=== PATIENT | female | born 1955 | race Caucasian/White ===

== ENCOUNTER → 2021-02-21 15:52 | Outpatient (CLI) | payer OTHER, SELFPAY ==
--- NOTE | ~2021-02-21 | MM_ITS ---
EXAMINATION: MM screening mateo BI w bethany HISTORY: Screening TECHNIQUE: Craniocaudal and mediolateral oblique 3-D tomosynthesis images were obtained and synthetic 2-D images were generated. CAD analysis was submitted and interpreted. COMPARISON: Comparison to multiple prior studies sequentially, with oldest reviewed study dated 06/05. BREAST PARENCHYMAL COMPOSITION: The breasts are almost entirely fatty. FINDINGS: There is no evidence of suspicious mass, calcification, or architectural distortion to sugg est malignancy in either breast. There has been no suspicious interval change. IMPRESSION: 1. No mammographic evidence of malignancy. 2. Recommend routine screening mammography in one year. BI-RADS Category 1: Negative Reviewed, dictated and finalized at location A.
== END ==
PROVIDERS: PCP Family Medicine; Visit Provider Nurse Practitioner Family
DX: Z12.31 Encounter for screening mammogram for malignant neoplasm of breast (principal)
CPT/HCPCS: 77063; 77067

== ENCOUNTER → 2022-04-16 15:36 | Outpatient (CLI) | payer MEDICARE, SELFPAY ==
--- NOTE | ~2022-04-16 | MM_ITS ---
EXAMINATION: MM screening mateo BI w bethany HISTORY: Screening mammogram TECHNIQUE: Craniocaudal and mediolateral oblique 3-D tomosynthesis images were obtained and synthetic 2-D images were generated. CAD analysis was submitted and interpreted. COMPARISON: 02/21/2021 bilateral screening mammogram 08/14/2018 bilateral diagnostic mammogram and limited left breast ultrasound examination BREAST PARENCHYMAL COMPOSITION: The breasts are almost entirely fatty. FINDINGS: There is no evidence of suspicious mass, calcification, or architectural distortion to sugg est malignancy in either breast. There has been no suspicious interval change. IMPRESSION: 1. No mammographic evidence of malignancy. 2. Recommend routine screening mammography in one year. BI-RADS Category 1: Negative Reviewed, dictated and finalized at location A.
--- NOTE | ~2022-04-16 | DEXA_ITS ---
Bone Density Report Name: JUSTUS MIRANDA Age: 66 Sex: Female Ethnicity: White Date of : 1955 Indication: postmenopausal; screening for osteoporosis; height loss; Referring Provider: Ivet Cuellar Study: Bone densitometry was performed. Exam Date: April 16, 2022 Accession number: [id number] Bone Density: Region BMD T-score Z-score Classification AP Spine (L1-L4) 1.306 2.4 4.2 Normal Femoral Neck (Left) 0.831 -0.2 1.4 Normal Total Hip (Left) 1.060 1.0 2.2 Normal Femoral Neck (Right) 0.818 -0.3 1.3 Normal Total Hip (Right) 1.020 0.6 1.9 Normal Total Hip Mean 1.040 0.8 2.1 Normal World Health Organization criteria for BMD impression classify patients as: Normal (T-score at or above -1.0), Osteopenia (T-score between -1.0 and -2.5), or Osteoporosis (T-score at or below -2.5). 10-year Fracture Risk: FRAX not reported because: All T-scores for Spine Total, Hip Total, Femoral Neck at or above -1.0 Clinical Information Provided by Patient: Has used the following medications: Vitamin D, MTV Patient maximum height was 62.0 Menopause Age: 56 Drinks caffeinated beverages Onset of menses at age 14 Number of children 3 Impression: The patient has normal bone mass. Discussion: BONE DENSITY IS ABOVE THE MINIMUM DESIRABLE LEVEL AT ALL SKELETAL SITES TESTED. This patient?s bone mineral density is above the minimum desirable level (T-score -1.0 or better) at all sites measured. The patient should follow a healthful lifestyle (good nutrition with adequate calcium and vitamin D, and appropriate weight-bearing exercise). Follow-Up: Consider repeating this study in 5 years or sooner if there is some new clinical indication. Reported by: WILLIE on 04/16/2022 4:25:00 PM. Reviewed, dictated and finalized at location AYehuda GARDNER
== END ==
PROVIDERS: PCP Family Medicine; Visit Provider Student in an Organized Health Care Education/Training Program
DX: Z12.31 Encounter for screening mammogram for malignant neoplasm of breast (principal); Z78.0 Asymptomatic menopausal state
CPT/HCPCS: 77063; 77067; 77080

== ENCOUNTER 2022-08-21 10:45 | Outpatient (CLI) | payer MEDICARE, SELFPAY ==
--- NOTE | 2022-08-21 11:00 | ECG_ITS ---
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
== END 2022-08-21 10:46 | disposition home or self-care (01) ==
LOC: ANHIMG 10:49
PROVIDERS: PCP Family Medicine; Visit Provider Nurse Practitioner Family
DX: I10 Essential (primary) hypertension (principal)
CPT/HCPCS: 93005

== ENCOUNTER 2022-08-29 09:18 | Outpatient (CLI) | payer MEDICARE, SELFPAY ==
--- NOTE | 2022-08-29 09:36 | ECHO_ITS ---
Patient Info Name: Delmi Briseno Age: 66 years : 1955 Gender: Female Ht: 61 in Wt: 330 lbs BSA: 2.65 m2 HR: 64 bpm BP: 139 / 73 mmHg Technical Quality: Good Exam Date: 08/29/2022 9:39 AM Exam Location: [facility] Patient Status: Outpatient Admit Date: 08/29/2022 Staff Ordering Physician: Katalina Griffiths NP Brick Paver: Alida King RDCS Attending Provider: Katalina Griffiths NP Exam Type: CA echo doppler color flow Study Info Indications I10 - Essential (primary) hypertension Complete two-dimensional, color flow and Doppler transthoracic echocardiogram is performed. Summary 1. Complete two-dimensional, color flow and Doppler transthoracic echocardiogram is performed. 2. Left ventricular chamber dimension is normal. 3. Left ventricular systolic function is normal, estimated at 60-65%. 4. There is mildly increased left ventricular wall thickness. 5. The left ventricular diastolic function is grade I diastolic dysfunction. 6. E/e' 10 is mildly elevated. 7. Global longitudinal strain is normal at -19.4%. 8. Left atrial chamber dimension is mildly enlarged. 9. Right atrial chamber dimension is mildly enlarged. 10. There is trace mitral valve regurgitation. 11. There is trace tricuspid valve regurgitation. 12. No pulmonary hypertension, estimated pulmonary arterial systolic pressure is 34 mmHg. 13. Dilated inferior vena cava with >50% collapse upon inspiration consistent with normal right atrial pressure, 10 mmHg. Left Ventricle Global longitudinal strain is normal at -19.4%. E/e' 10 is mildly elevated. Left ventricular chamber dimension is normal. Left ventricular systolic function is normal, estimated at 60-65%. There is mildly increased left ventricular wall thickness. The left ventricular diastolic function is grade I diastolic dysfunction. Right Ventricle Right ventricular systolic function is normal and with normal TAPSE 3.0 cm. Right ventricular chamber dimension is normal. Left Atria Left atrial chamber dimension is mildly enlarged. Right Atria Right atrial chamber dimension is mildly enlarged. Aortic Valve The aortic valve is trileaflet. There is no aortic valve stenosis. There is no aortic valve regurgitation. Pulmonic Valve There is no pulmonic regurgitation. Mitral Valve There is no mitral valve stenosis. There is trace mitral valve regurgitation. Tricuspid Valve There is trace tricuspid valve regurgitation. No pulmonary hypertension, estimated pulmonary arterial systolic pressure is 34 mmHg. Pericardium/Pleural There is no pericardial effusion. Inferior Vena Cava Dilated inferior vena cava with >50% collapse upon inspiration consistent with normal right atrial pressure, 10 mmHg. Aorta The aortic root size at the sinus of Valsalva is normal. Left Ventricular Outflow Tract Name Value Normal LVOT 2D LVOT Diameter 1.9 cm LVOT Doppler LVOT Peak Gradient 6 mmHg LVOT Mean Gradient 3 mmHg LVOT VTI 29 cm LVOT VTI/AV VTI Ratio 0.8
--- NOTE | 2022-08-30 15:18 | WPDHOLTEREM ---
Holter/Event Monitor Holter/Event Monitor Date of procedure: 08/29/22 Holter/Event Procedure: 24 Hr Holter Monitor Indications: Hypertension Conclusion: 1. 24 hour holter monitor on 08/29/22. 2. Underlying rhythm is sinus rhythm. HR range 43-96 bpm; average HR 60 bpm. 3. There are 4 premature supraventricular complexes and 2 supraventricular couplets. No supraventricular tachycardia. 4. No premature ventricular complexes. No ventricular tachycardia. 5. No sinoatrial or atrioventricular blocks. No significant pauses greater than 2 seconds. 6. No symptoms available for correlation.
== END 2022-08-29 09:19 | disposition home or self-care (01) ==
LOC: ANHCARD 09:19
PROVIDERS: PCP Family Medicine; Visit Provider Nurse Practitioner Family
DX: R01.1 Cardiac murmur, unspecified (principal); I10 Essential (primary) hypertension; I51.7 Cardiomegaly
CPT/HCPCS: 93225; 93226; 93306

== ENCOUNTER → 2023-04-03 10:41 | Outpatient (CLI) | payer MEDICARE, SELFPAY ==
--- NOTE | ~2023-04-03 | US_ITS ---
EXAMINATION: US thyroid DATE: 04/03/2023 11:05 INDICATION: Nontoxic goiter, unspecified. Thyroid nodule. TECHNIQUE: Multiple ultrasound images of the thyroid were obtained. COMPARISON: None. FINDINGS: The right thyroid lobe measures 5.2 x 3.0 x 2.2 cm. The left thyroid lobe measures 5.1 x 1.8 x 2.2 c m. There are multiple nodules in the thyroid. In the right thyroid lobe, there is a 1.8 cm solid, is oechoic, taller than wide nodule with ill-defined margin without echogenic foci (TI-RADS TR4). In the right thyroid lobe, there is a 1.7 cm predominantly solid, hypoechoic, wider than tall nodule with s mooth margin and punctate echogenic foci (TR5). In the left thyroid lobe, there is a 1.4 cm solid, hy poechoic wider than tall nodule with lobulated margin without echogenic foci (TR4). In the left thyro id lobe, there is a 1.2 cm solid, hypoechoic, wider than tall nodule with lobulated margin without ec hogenic foci (TR4). IMPRESSION: 1. Multinodular goiter. Ultrasound-guided fine-needle aspiration of the 1.8 cm and 1.7 cm nodules is recommended. Reviewed, dictated and finalized at location E.
== END ==
PROVIDERS: PCP Family Medicine; Visit Provider Registered Nurse
DX: E04.2 Nontoxic multinodular goiter (principal)
CPT/HCPCS: 76536

== ENCOUNTER → 2023-07-02 13:40 | Outpatient (CLI) | payer MEDICARE, SELFPAY ==
--- NOTE | ~2023-07-02 | MM_ITS ---
EXAMINATION: MM screening mateo BI w bethany HISTORY: Screening mammogram TECHNIQUE: Craniocaudal and mediolateral oblique 3-D tomosynthesis images were obtained and synthetic 2-D images were generated. CAD analysis was submitted and interpreted. COMPARISON: 04/16/2022, 02/21/2021 bilateral screening mammogram examinations BREAST PARENCHYMAL COMPOSITION: The breasts are almost entirely fatty. FINDINGS: There is no evidence of suspicious mass, calcification, or architectural distortion to sugg est malignancy in either breast. There has been no suspicious interval change. IMPRESSION: 1. No mammographic evidence of malignancy. 2. Recommend routine screening mammography in one year. BI-RADS Category 1: Negative Reviewed, dictated and finalized at location A. 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
== END ==
PROVIDERS: PCP Registered Nurse; Visit Provider Registered Nurse
DX: Z12.31 Encounter for screening mammogram for malignant neoplasm of breast (principal)
CPT/HCPCS: 77063; 77067

== ENCOUNTER 2023-12-03 11:24 | Outpatient (CLI) | payer MEDICARE, SELFPAY ==
--- NOTE | ~2023-12-03 | XR_ITS ---
2 views of the right clavicle CLINICAL HISTORY: Pain FINDINGS: No fracture or dislocation seen. There is mild AC joint degenerative change. Glenohumeral j oint intact. Soft tissues are unremarkable. IMPRESSION: Mild AC joint degenerative change. Reviewed, dictated and finalized at location M.
--- NOTE | ~2023-12-03 | XR_ITS ---
Right Shoulder Technique: AP and scapular Y views were obtained. Clinical History: Pain Findings: No fracture or dislocation is seen. Osseous alignment is anatomic. There is mild AC degener ative change. Glenohumeral joint intact. Soft tissues are unremarkable. Impression: Mild AC joint degenerative change. Reviewed, dictated and finalized at [facility]. Impression: Mild AC joint degenerative change.
== END 2023-12-03 11:25 ==
LOC: MICIMG 11:26
PROVIDERS: PCP Physician Assistant Medical; Visit Provider Physician Assistant Medical
DX: M89.8X1 Other specified disorders of bone, shoulder (principal); M19.011 Primary osteoarthritis, right shoulder
CPT/HCPCS: 73000; 73030

== ENCOUNTER 2024-06-24 09:26 | Outpatient (CLI) | payer MEDICARE, SELFPAY ==
--- NOTE | ~2024-06-24 | XR_ITS ---
2 views of the right clavicle CLINICAL HISTORY: Other specified disorder of bone COMPARISON: 12/03/2023 FINDINGS: No acute fracture or dislocation seen. Mild AC joint degenerative change present. Soft tiss ues are unremarkable. IMPRESSION: No acute abnormality. Mild AC joint degenerative change. Reviewed, dictated and finalized at [facility]. GER ENGLISH
== END 2024-06-24 09:27 | disposition home or self-care (01) ==
PROVIDERS: PCP Physician Assistant Medical; Visit Provider Physician Assistant Medical
DX: M89.8X1 Other specified disorders of bone, shoulder (principal)
CPT/HCPCS: 73000

== ENCOUNTER 2024-07-27 10:11 | Outpatient (CLI) | payer MEDICARE, SELFPAY ==
--- OUTSIDE RECORDS SUMMARY | 2024-08-03 20:29 | XMS_ITS | Referral Summary ---
Author Organization [facility] [employer] Address [address] [place] [address] Care Team Providers Care Cytogeneticist Name Role Phone Montana Lion MD Primary Care Provider [phone] Source Comments [facility],non-owned Affiliates and Associated Physician Practices is amultiple site organization consisting of ambulatory clinics and hospital sitesin [place], [place], [place] and [place]. This disclosure is being madepursuant to the Care Everywhere program and may not contain all information available regarding this patient. Last updated 18.[facility] [employer] Encounters Date Type Department Care Team Description 05/12/2024 Travel from Last 3 Months Allergies Active Allergy Reactions Criticality Noted Date Comments Adhesive Sensitivity Skin Reactions Low 08/22/2014 Paper Tape is OK Sulfa Drugs Skin Reactions,Itching Medium 08/22/2014 Medications * Be aware that medications may not be up to date on this document. Alwaysverify current medications with the patient. Medication Sig Dispensed Refills Start Date End Date Status Coenzyme Q10 (COQ10) 100 MG Take by mouth once daily Active cyanocobalamin (VITAMIN B-12) 500 MCG tablet Take 1 (one) tablet by mouth once daily Active IRON PO Take 1 tablet by mouth once daily Active multivitamins (ONE A DAY) capsule Take 1 (one) capsule by mouth Active omeprazole (PRILOSEC) 20 MG capsule Take 1 (one) capsule by mouth daily before breakfast 11/09/2017 Active vitamin D3 (CHOLECACIFEROL) 5000 UNITS Take by mouth once daily Active aspirin EC (ECOTRIN) 81 MG tablet Take 1 (one) tablet by mouth once daily Active Magnesium 400 MG Take by mouth at bedtime Active atorvastatin (Lipitor) 80 MG tablet Take 1 (one) tablet by mouth once daily 04/17/2022 Active Januvia 25 MG tablet Take 1 (one) tablet by mouth once daily 04/01/2022 Active metFORMIN (Glucophage) 1000 MG tablet 2 times daily with morning and evening meal 05/02/2022 Active ibuprofen (Motrin) 200 MG tablet Take by mouth every 6 hours as needed Active losartan (Cozaar) 100 MG tablet 03/13/2023 Active nebivolol (Bystolic) 5 MG tablet Take 1 (one) tablet by mouth once daily 05/12/2023 Active fluticasone propionate (Flonase) 50 MCG/ACT nasal spray INSTILL 1-2 SPRAYS INTO EACH NOSTRIL TWICE DAILY. AIM BACK, UP AND OUT 05/14/2023 Active Cetirizine HCl (ZYRTEC ALLERGY PO) Take by mouth once daily Active calcium 500 mg tablet Take 1 (one) tablet by mouth once daily Active nystatin (Mycostatin) 644050 UNIT/ML suspension SWISH AND HOLD 5ML BY MOUTH TWICE DAILY THEN SPIT 04/13/2024 Active Active Problems Problem Noted Date Diagnosed Date Iron deficiency 12/31/2015 Overview (06/20/2022): 09/12/14 trf sat 8%, Hgb 11.6, MCV 84. 09/27/14 EGD: normal appearing duodenum, biopsy normal 11/20/15 trf sat 12% 12/02/17 trfs sat 12% 07/03/21 colonoscopy negative Metabolic dysfunction-associated steatohepatitis (MASH) 11/21/2014 Overview (04/29/2024): 01/04/14 US (Ghulam): diffuse steatosis with focal sparing in the left lobe. 09/27/14 liver biopsy: VITALE, stage 2 11/16/18 Fibroscan CAP 383, LSM 9.0 kPa dwp 05/01/20 Fibroscan CAP 325, LSM 10.9 kPa dwp 05/07/21 Fibroscan CAP 381, LSM 10.3 kPa dwp 06/20/21 Fibroscan CAP 377, LSM 14.2 kPa 07/03/21 liver biopsy: VITALE, stage 2 06/20/22 Fibroscan CAP 333, LSM 12.4 kPa 05/22/23 Fibroscan CAP 268, LSM 8.1 kPa 04/29/24 Fibroscan CAP 344, LSM 9.7 kPa Ypnwr-1-lvmzdsnpfhg deficiency 10/13/2014 Overview (11/03/2017): MZ, level 104 No PASD globules on 09/27/14 liver biopsy Obesity 08/22/2014 Type 2 diabetes mellitus 08/22/2014 Hypertension 08/22/2014 Osteoarthritis 08/22/2014 Family history of colon cancer 08/22/2014 Overview (06/20/2022): Right hemicolectomy in 2007. Negative colonoscopy 2013. 07/03/21 colonoscopy: right hemicolectomy, tattooed area in sigmoid colon, no adenomas, repeat in 5 years. Heartburn 08/22/2014 Hypercholesterolemia 08/22/2014 Immunizations Name Administration Dates Next Due Covid Moderna primary monova lent 12+ yr 0.5mL 04/04/2022,10/04/2020,09/07/2020 INFLUENZA 05/07/2021 MODERNA SARS-COV-2 COVID-19 VACCINE 0.25ML 03/13 Social History Tobacco Use Types Packs/Day Years Used Date Smoking Tobacco: Never Smokeless Tobacco: Never Tobacco Cessation:Counseling Given: Not Answered Alcohol Use Standard Drinks/Week Comments No 0 (1 standard drink = 0.6 oz pur e alcohol) Sex and Gender Information Value Date Recorded Sex Assigned at Female 05/15/2021 10:17 AM CDT Gender Identity Female 05/15/2021 10:17 AM CDT Sexual Orientation Straight 05/15/2021 10 :17 AM CDT Last Filed Vital Signs Vital Sign Reading Time Taken Comments Blood Pressure 169/74 04/29/2024 8:55 AM CDT Pulse 51 04/29/2024 8:55 AM CDT Temperature 36.6 ??C (97.9 ??F) 04/29/2024 8:55 AM CD T Respiratory Rate 17 04/29/2024 8:55 AM CDT Oxygen Saturation 97% 06/20/2022 8:12 AM MACHINE REPAIR PERSON Inhaled Oxygen Concentration - - Weight 102.2 kg (225 lb 3.2 oz) 04/29/2024 8:55 AM CDT Height 157.5 cm (5' 2 ) 04/29/2024 8:55 AM CDT Body Mass Index 41.19 04/29/2024 8:55 AM CDT Plan of Treatment Upcoming Encounters Date Type Department Care Team (Late st Contact Info) Description 05/02/2025 11:30 AM CDT Procedure visit [facility] - [place] [address] [place] [phone] 05/02/2025 12:30 PM CDT Office Visit [facility] - [facility] [address] [place] [phone] Moris Leon MD [address] [place] [address] [place] [address] Goals Goal Patient Goal Type Associated Problems Recent Progress Patient-Stated? Author Medication Management General On track( 021 11:08 AM CDT) Alexx Castillo, RN Note: Expected end date: Interventions: Take all medications as prescribed Let your doctor know right away about any changes in your medications Make sure to request a refill of your medication at least one week prior to your last dose Procedures Procedure Name Priority Date/Time Associated Diagnosis Comments ENDOSCOPY, COLON, SCREENING Routine 07/03/2021 7:24 AM MACHINE REPAIR PERSON Family history of colon cancer COMPREHENSIVE METABOLIC PANEL Routine 04/20/2020 10:22 AM CDT Nonalcoholic steatohepatitis (VITALE) HEPATITIS C ANTIBODY Routine 09/12/2014 9:00 AM MACHINE REPAIR PERSON from Last 3 Months or Most Recently Relevant to Health Maintenance Results * ENDOSCOPY, COLON, SCREENING (07/03/2021 7:24 AM MACHINE REPAIR PERSON) Report Endoscopy POC Endoscopy Department Report _ Patient Name: Delmi Briseno ?Procedure Date: 07/03/2021 7:24 AM ? Date of : 1955 Classification: Outpatient ?Gender: Female Ethnicity: Not or ? Race: White _ Providers: ?Moris Hawk MD, Sourav Madrid (Fellow) Referring MD: ? Montana Lion (Referring MD) Procedure: ?Colonoscopy Indications: ?High risk colon cancer surveillance: Personal ?history of colonic polyps, prior right hemicolectomy Medications: ?Monitored Anesthesia Care Patient Profile: ?65 year old female with family history of colon ?cancer (father in 70's), personal history of colon ?polyps, and hemicolectomy for benign colonic tumor. Description of Procedure: Pre-Anesthesia Assessment: ?- Prior to the procedure, a History and Physical ?was performed, and patient medications and ?allergies were reviewed. The patient's tolerance of ?previous anesthesia was also reviewed. The risks ?and benefits of the procedure and the sedation ?options and risks were discussed with the patient. ?All questions were answered, and informed consent ?was obtained. Prior Anticoagulants: The patient has ?taken no previous anticoagulant or antiplatelet ?agents. ASA Grade Assessment: III - A patient with ?severe systemic disease. After reviewing the risks ?and benefits, the patient was deemed in ?satisfactory condition to undergo the procedure. ?After I obtained informed consent, the scope was ?passed under direct vision. Throughout the ?procedure, the patient's blood pressure, pulse, and ?oxygen saturations were monitored continuously. The ?CF-[id number] was introduced through the anus and ?advanced to the cecum, identified by appendiceal ?orifice and ileocecal valve. The colonoscopy was ?performed without difficulty. The patient tolerated ?the procedure well. The quality of the bowel ?preparation was evaluated using the BBPS ([place]s ?Bowel Preparation Scale) with scores of: Right ?Colon = 3, Transverse Colon = 3 and Left Colon = 3 ?(entire mucosa seen well with no residual staining, ?small fragments of stool or opaque liquid). The ?total BBPS score equals 9. The terminal ileum and ?the rectum were photographed. Appendicial orifice ?and IC valve both surgically removed ? Findings: ? The perianal and digital rectal examinations were normal. ? There was evidence of a prior end-to-side ileo-colonic anastomosis in ? the ascending colon. This was patent and was characterized by healthy ? appearing mucosa. ? A tattoo was seen in the distal transverse colon. The tattoo site ? appeared normal. ? A 2 mm polyp was found in the sigmoid colon. The polyp was sessile. The ? polyp was removed with a [employer] cold forceps. Resection and retrieval ? were complete. ? Multiple small and large-mouthed diverticula were found from descending ? colon to rectum. ? Internal hemorrhoids were found during retroflexion. The hemorrhoids ? were Grade I (internal hemorrhoids that do not prolapse). ? Estimated Blood Loss: ? Estimated blood loss: minimal. Complications: ?No immediate complications. Impression: ? 1) Patent end-to-side ileo-colonic anastomosis, ?characterized by healthy appearing mucosa. ?2) A tattoo was seen in the distal transverse ?colon. The tattoo site appeared normal no signs of ?any polyp near that site. ?3) One 2 mm polyp in the sigmoid colon, removed ?with a [employer] cold forceps. Resected and retrieved. ?4) Diverticulosis in the recto-sigmoid colon. ?5) Internal hemorrhoids. Recommendation: ? - Patient has a contact number available for ?emergencies. The signs and symptoms of potential ?delayed complications were discussed with the ?patient. Return to normal activities tomorrow. ?Written discharge instructions were provided to the ?patient. ?- Resume previous diet. ?- Continue present medications. ?- Await pathology results. ?- Repeat colonoscopy in 5 years for surveillance ?based on pathology results, FH and prior history. ? Procedure Code(s): ? --- Professional --- ? 86866, Colonoscopy, flexible; with biopsy, single or multiple Diagnosis Code(s): ?--- Professional --- ?Z86.010, Personal history of colonic polyps ?Z98.0, Intestinal bypass and anastomosis status ?K64.0, First degree hemorrhoids ?K63.5, Polyp of colon ?K57.30, Diverticulosis of large intestine without ?perforation or abscess without bleeding CPT copyright 2019 [employer]. All rights reserved. The codes documented in this report are preliminary and upon transit coach operator review may be revised to meet current compliance requirements. Moris Hawk MD 07/03/2021 9:08:27 AM This report has been signed electronically. Note Initiated On: 07/03/2021 7:24 AM Number of Addenda: 0 ? [facility] ? [address] [place] [address] [facility] 07/03/2021 7:24 AM MACHINE REPAIR PERSON Moris Leon MD GI PROCEDU RE ORDERABLES [facility] * (ABNORMAL) COMPREHENSIVE METABOLIC PANEL (04/20/2020 10:22 AM CDT) Glucose 195(H) 65 - 99 mg/dL [facility] INSURANCE BILL BUN 15 8 - 27 mg/dL [facility] INSURANCE BILL Creatinine 0.76 0.57 - 1.00 mg/dL [facility] INSURANCE BILL eGFR by MDRD 84 >59 mL/min/1.7 3 [facility] INSURANCE BILL eGFR by MDRD 97 >59 mL/min/1.7 3 [facility] INSURANCE BILL BUN/Creatinine Ratio 20 12 - 28 [facility] INSURANCE BILL Sodium 140 134 - 144 mmol/L [facility] INSURANCE BILL Potassium 4.9 3.5 - 5.2 mmol/L [facility] INSURANCE BILL Chloride 100 96 - 106 mmol/L [facility] INSURANCE BILL CO2 25 20 - 29 mmol/L [facility] INSURANCE BILL Calcium 9.8 8.7 - 10.3 mg/dL [facility] INSURANCE BILL Protein Total 6.3 6.0 - 8.5 g/dL [facility] INSURANCE BILL Albumin 4.1 3.8 - 4.8 g/dL [facility] INSURANCE BILL Globulin Total 2.2 1.5 - 4.5 g/dL [facility] INSURANCE BILL Albumin/Globulin Ratio 1.9 1.2 - 2.2 [facility] INSURANCE BILL Bilirubin Total 0.7 0.0 - 1.2 mg/dL [facility] INSURANCE BILL Alkaline Phosphatase 94 39 - 117 IU/L [facility] INSURANCE BILL AST 41(H) 0 - 40 IU/L [facility] INSURANCE BILL ALT 50(H) 0 - 32 IU/L [facility] INSURANCE BILL Blood BLOOD SPECIMEN / Unknown 04/20/2020 10:22 AM CDT 04/20/2020 Narrative Resulting Agency Comment Lab Testing performed at: [address] ??Count includes the [facility] [id number] Moris Leon MD LAB - CHEM ISTRY ORDERABLES [facility] INSURANCE BILL [address] [place] [address] * HEPATITIS C ANTIBODY (09/12/2014 9:00 AM MACHINE REPAIR PERSON) Hepatitis C Virus Antibody 0.1 0.0 - 0.9 s/co ratio [facility] Comment: ?Negative: ? < 0.8 ? Indeterminate: 0.8 - 0.9 ?Positive: ? > 0.9 ??In order to reduce the incidence of a false positive ??result, the CDC recommends that all s/co ratios ??between 1.0 and 10.9 be confirmed by a more specific ??supplemental or PCR testing. [facility] offers HCV Ab ??w/Reflex to Verification test #[id number]. Blood specimen (specimen) BLOOD SPECIMEN / Unknown 09/12/2014 9:00 AM MACHINE REPAIR PERSON 09/12/2014 11:43 PM MACHINE REPAIR PERSON Narrative [facility] - 09/14/2014 11:26 AM MACHINE REPAIR PERSON Performed at: ??[address], [place], [place] ??[id number] Supervisor Commissary Production: Ion Leon PhD, Phone: ??[phone] Moris Leon MD LAB - CHEM ISTRY ORDERABLES [facility] [facility] from Last 3 Months or Most Recently Relevant to Health Maintenance Care Teams Cytogeneticist Relationship Specialty Start Date End Date Montana Lion MD [address] [place] [address] PCP - General 11/20/15
--- OUTSIDE RECORDS SUMMARY | 2024-08-03 20:29 | XMS_ITS | CONTINUITY OF CARE DOCUMENT ---
Author Name ramon navarro Address Unknown Organization [facility] Address [address] [place] [address] Phone [phone] Care Team Providers Care Special Agent Name Role Phone Deshawn Mike MD Unavailable [phone] DONA GLEASON MD Unavailable [phone] DONA GLEASON MD Unavailable INSURANCE PROVIDERS Payer name Policy type / Coverage type Clare red republican ID [employer] company [id number]
--- OUTSIDE RECORDS SUMMARY | 2024-08-03 20:29 | XMS_ITS | Clinical Summary ---
Author Organization [facility] [employer] Address [address] [place] [address] Care Team Providers Care Leadlighter Name Role Phone Montana Lion MD Primary Care Provider [phone] Source Comments [facility] [employer],non-owned Affiliates and Associated Physician Practices is amultiple site organization consisting of ambulatory clinics and hospital sitesin [place], [place], [place] and [place]. This disclosure is being madepursuant to the Care Everywhere program and may not contain all information available regarding this patient. Last updated 18.[facility] [employer] Allergies Active Allergy Reactions Criticality Noted Date [...] by mouth once daily Active nystatin (Mycostatin) 934218 UNIT/ML suspension SWISH AND HOLD 5ML BY [...] 04/29/24 Fibroscan CAP 344, LSM 9.7 kPa Itijl-4-xzsqefhyotq deficiency 10/13/2014 Overview (11/03/2017): MZ, level 104 No PASD globules on 09/27/14 liver biopsy Obesity 08/22/2014 Type 2 diabetes mellitus 08/22/2014 Hypertension 08/22/2014 Osteoarthritis 08/22/2014 Family history of colon cancer 08/22/2014 Overview (06/20/2022): Right hemicolectomy in 2007. Negative colonoscopy 2013. 07/03/21 colonoscopy: right hemicolectomy, tattooed area in sigmoid colon, no adenomas, repeat in 5 years. Heartburn 08/22/2014 Hypercholesterolemia 08/22/2014 Encounters Date Type Department Care Team Description 05/12/2024 Travel from Last 3 Months Immunizations Name Administration Dates Next Due Covid [...] CDT Oxygen Saturation 97% 06/20/2022 8:12 AM LEATHER SPLITTER Inhaled Oxygen Concentration - - Weight 102.2 kg (225 lb 3.2 oz) 04/29/2024 8:55 AM CDT Height 157.5 cm (5' 2 ) 04/29/2024 8:55 AM CDT Body Mass Index 41.19 04/29/2024 8:55 AM CDT Plan of Treatment Upcoming Encounters Date Type Department Care Team (Late st Contact Info) Description 05/02/2025 11:30 AM CDT Procedure visit [facility] - [facility] [address] [place] [phone] 05/02/2025 12:30 PM CDT Office Visit [facility] - [facility] [address] [place] [phone] Moris Leon MD [address] [place] [address] [place] [address] Health Maintenance Due Date Last Done Comments BONE DENSITY TESTING 1955 COLOGUARD (AGES 45-75) - COLON CA SCREENING 1955 CT COLONOGRAPHY - COLON CA SCREENING 1955 FIT - COLON CA SCREENING 1955 FLEX SIG - COLON CA SCREENING 1955 PNEUMOCOCCAL VACCINE 65+ (1 of 2 - PCV) 1962 DTAP/TDAP/TD VACCINES (1 - Tdap) 1975 ZOSTER VACCINE (1 of 2) 2006 Respiratory Syncytial Virus (RSV) Vaccine Pt: or over 60 yrs (1 - Risk 60-74 years 1-dose series) 2016 MAMMOGRAM 10/14/2018 10/14/2016, 03/0 02/2016, 09/26/2014, Additional history exists DIABETES RETINOPATHY SCREENING 11/02/2018 DIABETES-FOOT EXAM WITH MONOFILAMENT 11/02/2018 DIABETES-HGB A1C 11/02/2018 DIABETES-SERUM CREATININE 04/20/20212019, 11/04/2018, 11/06/2017, Additional history exists DEPRESSION SCREENING 08/04/2023 DIABETES - URINE PROTEIN SCREENING 08/04/2023 MEDICARE AWV ? CALENDAR YEAR 2023 COVID-19 VACCINE ( season) 2024 03/13/2023, 04/04/2022, 10/04/2020, Additional history exists INFLUENZA VACCINE (#1) 2024 05/07/2021 COLON MONITORING 07/03/2031 07/03/2021, 07/03/2021 COLONOSCOPY - COLON CA SCREENING 07/03/2031 07/03/2021, 07/03/2021 Colorectal Cancer Screening 07/03/2031 HEPATITIS C SCREENING Completed 09/12/2014 HEPATITIS B VACCINE Aged Out No longe r eligible based on patient's age to complete this topic HIB VACCINE Aged Out No longer eligi ble based on patient's age to complete this topic HPV VACCINE Aged Out No longer eligi ble based on patient's age to complete this topic MENINGOCOCCAL VACCINE Aged Out No lois tanya eligible based on patient's age to complete this topic Goals Goal Patient Goal Type Associated Problems Recent Progress Patient-Stated? Author Medication Management General On track( 021 11:08 AM CDT) No Alexx Spring, RN Note: Expected end date: Interventions: Take all medications as prescribed Let your doctor know right away about any changes in your medications Make sure to request a refill of your medication at least one week prior to your last dose Procedures Procedure Name Priority Date/Time Associated Diagnosis Comments ENDOSCOPY, COLON, SCREENING Routine 07/03/2021 7:24 AM LEATHER SPLITTER Family history of colon cancer COMPREHENSIVE METABOLIC PANEL Routine 04/20/2020 10:22 AM CDT Nonalcoholic steatohepatitis (VITALE) HEPATITIS C ANTIBODY Routine 09/12/2014 9:00 AM LEATHER SPLITTER from Last 3 Months or Most Recently Relevant to Health Maintenance Results * ENDOSCOPY, COLON, SCREENING (07/03/2021 7:24 AM LEATHER SPLITTER) Report Endoscopy POC Endoscopy Department Report _ [...] and ?oxygen saturations were monitored continuously. The ?CF-[id number] was introduced through the anus and ?advanced to the cecum, identified by appendiceal ?orifice and ileocecal valve. The colonoscopy was ?performed without difficulty. The patient tolerated ?the procedure well. The quality of the bowel ?preparation was evaluated using the BBPS ([place]er ?Bowel Preparation Scale) with scores of: Right [...] The ? polyp was removed with a jumbo cold forceps. Resection and retrieval ? were [...] in the sigmoid colon, removed ?with a [employer] cold forceps. Resected and retrieved. ?4) Diverticulosis [...] Procedure Code(s): ? --- Professional --- ? 09041, Colonoscopy, flexible; with biopsy, single or multiple Diagnosis Code(s): ?--- Professional --- ?Z86.010, Personal history of colonic polyps ?Z98.0, Intestinal bypass and anastomosis status ?K64.0, First degree hemorrhoids ?K63.5, Polyp of colon ?K57.30, Diverticulosis of large intestine without ?perforation or abscess without bleeding CPT copyright 2019 [employer]. All rights reserved. The codes documented in this report are preliminary and upon special services coordinator review may be revised to meet current compliance requirements. Moris Hawk MD 07/03/2021 9:08:27 AM This report has been signed electronically. Note Initiated On: 07/03/2021 7:24 AM Number of Addenda: 0 ? [facility] ? [address] [place] [address] [facility] 07/03/2021 7:24 AM LEATHER SPLITTER Moris Leon MD GI PROCEDU RE ORDERABLES [facility] [place] * (ABNORMAL) COMPREHENSIVE METABOLIC PANEL (04/20/2020 10:22 [...] Resulting Agency Comment Lab Testing performed at: [address] ??[facility] [id number] Moris Leon MD LAB - CHEM ISTRY [facility] [address] [place] [address] * HEPATITIS C ANTIBODY (09/12/2014 9:00 AM LEATHER SPLITTER) Hepatitis C Virus Antibody 0.1 0.0 - 0.9 s/co ratio [facility] Comment: ?Negative: ? < 0.8 ? Indeterminate: 0.8 - 0.9 ?Positive: ? > 0.9 ??In order to reduce the incidence of a false positive ??result, the CDC recommends that all s/co ratios ??between 1.0 and 10.9 be confirmed by a more specific ??supplemental or PCR testing. [facility] offers HCV Ab ??w/Reflex to Verification test #[id number]. Blood specimen (specimen) BLOOD SPECIMEN / Unknown 09/12/2014 9:00 AM LEATHER SPLITTER 09/12/2014 11:43 PM LEATHER SPLITTER Narrative [facility] - 09/14/2014 11:26 AM LEATHER SPLITTER Performed at: ??[address] - [facility], [place], [place] ??[id number] Cloth Doubling Machine Operator: Ion Leon PhD, Phone: ??[phone] Moris Leon MD LAB - CHEM ISTRY ORDERABLES Performing Organization Address [facility] Co de Phone Number [facility] from Last 3 Months or Most Recently Relevant to Health Maintenance Care Teams Leadlighter Relationship Specialty Start Date End Date Montana Lion MD [address] [place] [phone] PCP - General 11/20/15
--- OUTSIDE RECORDS SUMMARY | 2024-08-03 20:30 | XMS_ITS | Encounter Summary ---
Author Organization [facility] Address [address] [place] [address] Care Team Providers Care Iron Worker Name Role Phone Montana Lion MD Primary Care Provider [phone] Reason for Referral * Procedure (Routine) - Closed Specialty Diagnoses / Procedures Referred By Traci aguilar Referred To Contact Gastroenterology Diagnoses Nonalcoholic steatohepatitis (VITALE) Procedures NEEDLE BIOPSY, LIVER Moris Leon MD [address] DIV [place] [address] Referral ID Status Reason Start Date Expiration Date Visits Re quested Visits Authorized [id number] Closed 05/07/2021 05/07/2022 1 1 WORKS MAKER * Procedure (Routine) - Closed Specialty Diagnoses / Procedures Referred By Traci aguilar Referred To Contact Gastroenterology Diagnoses Family history of colon cancer Procedures ENDOSCOPY, COLON, SCREENING Moris Leon MD [address] DIV [place] [address] Referral ID Status Reason Start Date Expiration Date Visits Re quested Visits Authorized [id number] Closed 05/07/2021 05/07/2022 1 1 WORKS MAKER Reason for Visit * Auth/Cert Specialty Diagnoses / Procedures Referred By Traci aguilar Referred To Contact Diagnoses Nonalcoholic steatohepatitis (VITALE) Family history of colon cancer Procedures WA NEEDLE BIOPSY LIVER WA COLONOSCOPY,BIOPSY WA COLONOSCOPY,DIAGNOSTIC BIOPSY LIVER (NEEDLE/PERCUTANEOUS) COLONOSCOPY SCREEN Referral ID Status Reason Start Date Expiration Date Visits Re quested Visits Authorized [id number] 1 1 Encounter Details Date Type Department Care Team (Latest Contact Info) Description 07/03/2021 6:46 AM FIREWORKS MAKER - 07/03/2021 11:18 AM FIREWORKS MAKER Hospital Encounter [facility] [address] [place] [address] Moris Holden MD [address] [facility] [address] DIV [place] [address] Gastroenterology Discharge Disposition: Home or Self Care Social History Tobacco Use Types Packs/Day Years Used Date Smoking Tobacco: Never Smokeless Tobacco: Never Alcohol Use Standard Drinks/Week Comments No 0 (1 standard drink = 0.6 oz pur e alcohol) Sex and Gender Information Value Date Recorded Sex Assigned at Female 05/15/2021 10:17 AM CDT Gender Identity Female 05/15/2021 10:17 AM CDT Sexual Orientation Straight 05/15/2021 10 :17 AM CDT documented as of this encounter Last Filed Vital Signs Vital Sign Reading Time Taken Comments Blood Pressure 142/69 07/03/2021 10:45 AM FIREWORKS MAKER Pulse 80 07/03/2021 10:45 AM FIREWORKS MAKER Temperature 36.6 ??C (97.9 ??F) 07/03/2021 9:08 AM CS T Respiratory Rate 22 07/03/2021 10:45 AM FIREWORKS MAKER Oxygen Saturation 98% 07/03/2021 10:45 AM FIREWORKS MAKER Inhaled Oxygen Concentration - - Weight 107.5 kg (237 lb) 07/03/2021 7:04 AM FIREWORKS MAKER Height 157.5 cm (5' 2 ) 07/03/2021 7:04 AM FIREWORKS MAKER Body Mass Index 43.35 07/03/2021 7:04 AM FIREWORKS MAKER documented in this encounter Discharge Instructions * Discharge Instructions* Annemarie Potter RN - 07/03/2021 9:19 AM FIREWORKS MAKER Images from the original note were not included. Patient Education Patient Education Percutaneous Liver Biopsy WHAT YOU NEED TO KNOW: A PLB is a procedure to remove a sample of tissue from your liver. The sample can be sent to a lab and tested for liver disease, cancer, or infection. After the procedure you may have pain and bruising at the biopsy site. You may also have pain in your right shoulder. These symptoms should get better in 48 to 72 hours. DISCHARGE INSTRUCTIONS: Call 911 for any of the following: ?? You have trouble breathing. ?? You cannot stop the bleeding from your biopsy site even after you hold firm pressure for 10 minutes. Seek care immediately if: ?? Blood soaks through your bandage. ?? You have severe pain in your abdomen. ?? Your abdomen is larger than usual and feels hard. Contact your healthcare provider if: ?? You have a fever or chills. ?? Your pain does not get better after you take pain medicine. ?? Your biopsy site is red, swollen, or draining pus. ?? You have nausea or are vomiting. ?? Your skin is itchy, swollen, or you have a rash. ?? You have questions or concerns about your condition or care. Medicines: You may need any of the following: ?? Acetaminophen decreases pain and fever. It is available without a doctor's order. Ask how much to take and how often to take it. Follow directions. Read the labels of all other medicines you are using to see if they also contain acetaminophen, or ask your doctor or pharmacist. Acetaminophen can cause liver damage if not taken correctly. Do not use more than 4 grams (4,000 milligrams) total of acetaminophen in one day. ?? Take your medicine as directed. Contact your healthcare provider if you think your medicine is not helping or if you have side effects. Tell him or her if you are allergic to any medicine. Keep a list of the medicines, vitamins, and herbs you take. Include the amounts, and when and why you take them. Bring the list or the pill bottles to follow-up visits. Carry your medicine list with you in case of an emergency. Care for your biopsy site as directed: You may remove the bandage and shower after 24 hours. Carefully wash around the biopsy site with soap and water. It is okay to let soap and water run over the biopsy site. Dry the area and put on new, clean bandages as directed. Change your bandages when they get wet or dirty. You may leave the biopsy site open to air, if preferred. Self-care: ?? Apply ice on your biopsy site for 15 to 20 minutes every hour or as directed. Use an ice pack, or put crushed ice in a plastic bag. Cover it with a towel. Ice helps prevent tissue damage and decreases swelling and pain. ?? Rest as directed. Do not play sports, exercise, or lift anything heavier than 5 pounds for up to1 week. ?? Apply firm, steady pressure if bleeding occurs. A small amount of bleeding from your biopsy is possible. Apply pressure with a clean gauze or towel for 5 to 10 minutes. Call 911 if bleeding becomes heavy or does not stop. ?? Ask your healthcare provider when to take your blood thinner or antiplatelet medicine. You may need to wait 24 to 72 hours to take your medicine. This will prevent bleeding. Follow up with your healthcare provider as directed: Write down your questions so you remember to ask them during your visits. ?? Copyright [employer] 2020 Information is for End User's use only and may not be sold, redistributed or otherwise used for commercial purposes. All illustrations and images included in CareNotes?? are the copyrighted property of [employer]. or [employer] The above information is an sanitary aide only. It is not intended as medical advice for individual conditions or treatments. Talk to your doctor, nurse or pharmacist before following any medical regimen to see if it is safe and effective for you. Colonoscopy WHAT YOU NEED TO KNOW: A colonoscopy is a procedure to examine the inside of your colon (intestine) with a scope. Polyps or tissue growths may have been removed during your colonoscopy. It is normal to feel bloated and to have some abdominal discomfort. You should be passing gas. If you have hemorrhoids or you had polypsremoved, you may have a small amount of bleeding. DISCHARGE INSTRUCTIONS: Call your doctor if: ?? You have a large amount of bright red blood in your bowel movements. ?? Your abdomen is hard and firm and you have severe pain. ?? You have sudden trouble breathing. ?? You develop a rash or hives. ?? You have a fever within 24 hours of your procedure. ?? You have not had a bowel movement for 3 days after your procedure. ?? You have questions or concerns about your condition or care. After your colonoscopy: ?? Do not lift, strain, or run for 3 days. ?? Rest as much as possible. You have been given medicine to relax you. Do not drive or make important decisions for at least 24 hours. Return to your normal activity as directed. ?? Relieve gas and discomfort from bloating by lying on your left side with a heating pad on your abdomen. You may need to take short walks to help the gas move out. Eat small meals until bloating isrelieved. If you had polyps removed: For 7 days after your procedure: ?? Do not take aspirin. ?? Do not go on long car rides. Help prevent constipation: ?? Eat a variety of healthy foods. Healthy foods include fruit, vegetables, whole-grain breads, low-fat dairy products, beans, lean meat, and fish. Ask if you need to be on a special diet. Your healthcare provider may recommend that you eat high-fiber foods such as cooked beans. Fiber helps you have regular bowel movements. ?? Drink liquids as directed. Adults should drink between 9 and 13 eight-ounce cups of liquid everyday. Ask what amount is best for you. For most people, good liquids to drink are water, juice, and milk. ?? Exercise as directed. Talk to your healthcare provider about the best exercise plan for you. Exercise can help prevent constipation, decrease your blood pressure and improve your health. Follow up with your healthcare provider as directed: Write down your questions so you remember to ask them during your visits. ?? Copyright [employer] 2020 Information is for End User's use only and may not be sold, redistributed or otherwise used for commercial purposes. All illustrations and images included in CareNotes?? are the copyrighted property of [employer], [employer]. or [employer] The above information is an sanitary aide only. It is not intended as medical advice for individual conditions or treatments. Talk to your doctor, nurse or pharmacist before following any medical regimen to see if it is safe and effective for you. WORKS MAKER documented in this encounter Medications at Time of Discharge Medication Sig Dispensed Refills Start Date End Date aspirin EC (ECOTRIN) 81 MG tablet Take 1 (one) tablet by mouth once daily Coenzyme Q10 (COQ10) 100 MG Take by mouth once daily cyanocobalamin (VITAMIN B-12) 500 MCG tablet Take 1 (one) tablet by mouth once daily IRON PO Take 1 tablet by mouth once daily Magnesium 400 MG Take by mouth at bedtime multivitamins (ONE A DAY) capsule Take 1 (one) capsule by mouth omeprazole (PRILOSEC) 20 MG capsule Take 1 (one) capsule by mouth daily before breakfast 11/09/2017 vitamin D3 (CHOLECACIFEROL) 5000 UNITS Take by mouth once daily atorvastatin (LIPITOR) 10 MG tablet Take 80 mg by mouth at bedtime 11/04/2017 06/20/2022 KOMBIGLYZE XR 2.5-1000 MG tablet Take 1 tablet by mouth 2 times daily 11/04/2017 06/20/2022 losartan (COZAAR) 25 MG tablet Take 4 (four) tablets by mouth once daily 05/22/2023 documented as of this encounter H&P Notes * Moris Hawk MD - 07/03/2021 8:03 AM CST PRE-PROCEDURE HISTORY & PHYSICAL NOTE (Presedation assessment per Anesthesia Team) 07/03/2021 8:03 AM Patient: Delmi Briseno, date of 1955 Procedure(s) planned: Colonoscopy and liver bx Indication(s): colon cancer prevention, assess VITALE History: Patient Active Problem List Diagnosis ??? Nonalcoholic steatohepatitis (VITALE) 01/04/14 [place] ([place]): diffuse steatosis with focal sparing in the left lobe. 09/27/14 liver biopsy: VITALE, stage 2 11/16/18 Fibroscan CAP 383, LSM 9.0 kPa dwp 05/01/20 Fibroscan CAP 325, LSM 10.9 kPa dwp 05/07/21 Fibroscan CAP 381, LSM 10.3 kPa dwp 06/20/21 Fibroscan CAP 377, LSM 14.2 kPa ??? Yeeol-5-bokffahniid deficiency MZ, level 104 No PASD globules on 09/27/14 liver biopsy ??? Iron deficiency 09/12/14 trf sat 8%, Hgb 11.6, MCV 84. 09/27/14 EGD: normal appearing duodenum, biopsy normal 11/20/15 trf sat 12% ??? Obesity ??? Type 2 diabetes mellitus ??? Hypertension ??? Hypercholesterolemia ??? Osteoarthritis ??? Heartburn ??? Family history of colon cancer Negative colonoscopy 2013. Followed by Dr. Bright. Past Medical History: Diagnosis Date ??? Essential hypertension ??? GERD (gastroesophageal reflux disease) ??? History of diabetes mellitus Past Surgical History: Procedure Laterality Date ??? BIOPSY ??? Section ??? Cholecystectomy, Laparoscopic ??? COLECTOMY PARTIAL OR HEMICOLECTOMY 2008 Right hemicolectomy Allergies Allergen Reactions ??? Sulfa Drugs Skin Reactions and Itching ??? Adhesive Sensitivity Skin Reactions Paper Tape is OK Medications Prior to Admission Medication Sig Dispense Refill ??? aspirin EC (ECOTRIN) 81 MG tablet Take 81 mg by mouth once daily ??? atorvastatin (LIPITOR) 10 MG tablet Take 80 mg by mouth at bedtime ??? Coenzyme Q10 (COQ10) 100 MG Take by mouth once daily ??? cyanocobalamin (VITAMIN B-12) 500 MCG tablet Take 500 mcg by mouth once daily ??? IRON PO Take 1 tablet by mouth once daily ??? KOMBIGLYZE XR 2.5-1000 MG tablet Take 1 tablet by mouth 2 times daily ??? losartan (COZAAR) 25 MG tablet Take 100 mg by mouth once daily ??? Magnesium 400 MG Take by mouth at bedtime ??? multivitamins (ONE A DAY) capsule Take 1 capsule by mouth ??? omeprazole (PRILOSEC) 20 MG capsule Take 20 mg by mouth daily before breakfast ??? vitamin D3 (CHOLECACIFEROL) 5000 UNITS Take by mouth once daily Review of systems: Chest pain: No. Shortness of breath: No. Review of systems otherwise negative. Physical Exam: BP 165/77 Pulse 78 Temp 97.9 ??F (36.6 ??C) (Oral) Resp 16 Ht 1.575 m (5' 2 ) Wt 107.5 kg (237 lb) BMI 43.35 kg/m2 GENERAL: The patient is alert, oriented and in no apparent distress. HEENT: Neck supple, posterior pharynx is clear. LUNGS: Lungs are clear to auscultation. CVS: Heart sounds are normal, no murmurs. ABDOMEN: Soft, no tenderness, masses or organomegaly. EXTREMITIES: Normal. NEURO: Non-focal. Pain assessment: None. Sedation Plan: Monitored Anesthesia Care (MAC) by the anesthesia team. Procedure Plan: Based on the above assessment, we will perform the procedures indicated above. I have discussed the plan, risks, benefits and alternatives with the patient or guardian. When assessment above was not obtained immediately before the procedure, I have reassessed this patient and there are no changes. In addition to the standard procedural informed consent, the specific risks related to COVID-19 were also discussed, including the possibility of an infection being present with a negative test, the risk of lucho COVID-19, and the known implications of this infection. See consent form. Moris Hawk MD WORKS MAKER * Sourav Madrid MD - 07/03/2021 8:02 AM CST PRE-PROCEDURE HISTORY & PHYSICAL NOTE (Presedation assessment per Anesthesia Team) 07/03/2021 8:02 AM Patient: Delmi Briseno, date of 1955 Procedure(s) planned: Colonoscopy and liver biopsy Indication(s): History of colon polpys and VITALE History: Patient Active Problem List: Iron deficiency Nonalcoholic steatohepatitis (VITALE) Qmwcz-5-tdosjyblvtw deficiency Obesity Type 2 diabetes mellitus Hypertension Osteoarthritis Family history of colon cancer Heartburn Hypercholesterolemia Past Medical History: Diagnosis Date ??? Essential hypertension ??? GERD (gastroesophageal reflux disease) ??? History of diabetes mellitus Past Surgical History: Procedure Laterality Date ??? BIOPSY ??? Section ??? Cholecystectomy, Laparoscopic ??? COLECTOMY PARTIAL OR HEMICOLECTOMY 2008 Right hemicolectomy No family history on file. Social History Socioeconomic History ??? Marital status: Spouse name: Not on file ??? Number of children: Not on file ??? Years of education: Not on file ??? Highest education level: Not on file Occupational History ??? Not on file Tobacco Use ??? Smoking status: Never Smoker ??? Smokeless tobacco: Never Used Vaping Use ??? Vaping Use: Never used Substance and Sexual Activity ??? Alcohol use: No ??? Drug use: No ??? Sexual activity: Not on file Other Topics Concern ??? 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 , 3 sons, 6 grandchildren. Social Determinants of Health Financial Resource Strain: Not on file Food Insecurity: Not on file Transportation Needs: Not on file Physical Activity: Not on file Stress: Not on file Social Connections: Not on file Intimate Partner Violence: Not on file Housing Stability: Not on file Allergies Allergen Reactions ??? Sulfa Drugs Skin Reactions and Itching ??? Adhesive Sensitivity Skin Reactions Paper Tape is OK Medications Prior to Admission Medication Sig Dispense Refill ??? aspirin EC (ECOTRIN) 81 MG tablet Take 81 mg by mouth once daily ??? atorvastatin (LIPITOR) 10 MG tablet Take 80 mg by mouth at bedtime ??? Coenzyme Q10 (COQ10) 100 MG Take by mouth once daily ??? cyanocobalamin (VITAMIN B-12) 500 MCG tablet Take 500 mcg by mouth once daily ??? IRON PO Take 1 tablet by mouth once daily ??? KOMBIGLYZE XR 2.5-1000 MG tablet Take 1 tablet by mouth 2 times daily ??? losartan (COZAAR) 25 MG tablet Take 100 mg by mouth once daily ??? Magnesium 400 MG Take by mouth at bedtime ??? multivitamins (ONE A DAY) capsule Take 1 capsule by mouth ??? omeprazole (PRILOSEC) 20 MG capsule Take 20 mg by mouth daily before breakfast ??? vitamin D3 (CHOLECACIFEROL) 5000 UNITS Take by mouth once daily Review of systems: 05/17 reviewed, negative unless otherwise stated Chest pain: No. Shortness of breath: No. Review of systems otherwise negative. Physical Exam: BP 165/77 Pulse 78 Temp 97.9 ??F (36.6 ??C) (Oral) Resp 16 Ht 1.575 m (5' 2 ) Wt 107.5 kg (237 lb) BMI 43.35 kg/m2 GENERAL: The patient is alert, oriented and in no apparent distress. HEENT: Neck supple, posterior pharynx is clear. LUNGS: Lungs are clear to auscultation. CVS: Heart sounds are normal, no murmurs. ABDOMEN: Soft, no tenderness, masses or organomegaly. EXTREMITIES: Normal. NEURO: Non-focal. ASA 3 Labs: Recent Labs Component Name 04/20/20 1022 11/04/18 15111/06/17 1030 11/06/16 0955 11/06/16 0955 09/12/14 0909/12/14899 WBC 8.2 8.8 8.5 - 7.7 - 8.2 HGB 12.9 12.4 13.2 - 12.7 - 11.6 PLT - - 324 - 310 - 320 INR - - 1.0 - 1.0 - 1.0 - = values in this interval not displayed. Recent Labs Component Name 04/20/20 1022 MCV 86 Recent Labs Component Name 04/20/20 1022 11/04/18 1515 11/06/17 1030 11/06/16 0955 11/06/16 0955 09/12/14 0909/12/14899 NA - - 143 - 142 - 141 K - - 4.6 - 4.2 - 4.5 CL - - 100 - 100 - 100 CO2 25 25 24 - 24 - 24 BUN 15 16 15 - 17 - 17 CREATININE 0.76 0.82 0.81 - 0.75 - 0.81 - = values in this interval not displayed. Recent Labs Component Name 04/20/20 1022 11/04/18 1515 11/06/17 1030 11/06/16 0955 11/06/16 0909/12/14 0909/12/14 09 AST 41* 45* 64* - 52* - 24 ALT 50* 68* 64* - 65* - 40* ALKPHOS 94 83 77 - 63 - 83 TBILI - - 0.9 - 0.8 - 0.5 ALB - - 4.7 - 4.7 - 4.3 - = values in this interval not displayed. No results for input(s): CRP in the last [id number] hours. Sedation Plan: Monitored Anesthesia Care (MAC) by the anesthesia team. Procedure Plan: Based on the above assessment, we will perform the procedures indicated above. I have discussed the plan, risks, benefits and alternatives with the patient or guardian. When assessment above was not obtained immediately before the procedure, I have reassessed this patient and there are no changes. Sourav Madrid MD WORKS MAKER documented in this encounter Procedure Notes * Moris Hawk MD - 07/03/2021 9:01 AM CSTAssociated Order(s): NEEDLE BIOPSY, LIVER PERCUTANEOUS LIVER BIOPSY PROCEDURE NOTE Patient Name: Delmi Briseno Date: 07/03/2021 Time: 9:02 AM Attending: Moris Hawk MD Fellow: None Diagnosis/Indication: VITALE, elevated liver stiffness Location: Endoscopy Admission Status: Outpatient PERMIT The indications, risks, benefits and alternatives, as described below, were explained to the patient who agreed to proceed. Signed, informed consent was obtained. Possible risks of liver biopsy include: ?? Bleeding- risk of hemodynamically significant bleed requiring blood transfusion or surgery is approximately 1:1,000 ?? Perforation (gallbladder, lung, bowel, kidney, other) the risk of perforation is less than 1:1,000 ?? Severe pain after biopsy, including referred shoulder pain; the risk of pain requiring analgesics is approximately 1:4. PROCEDURE DESCRIPTION The patient was placed in the supine position. The liver was palpated and percussed and an appropriate intercostal location was identified. Ultrasound Limited abdominal ultrasound for localization was performed. Comments: The liver was noted to be in a good position. The area was then prepped and draped in the usual sterile manner. 20 ml 1% lidocaine was used as a local anesthetic. Intravenous anxiolytic Versed 0 mg IV Fentanyl 0 mcg IV Biopsy performed after an endoscopic procedure: Yes. Instrument 16 G BioPince set at 33 mm (27 mm core) Adequate tissue was obtained using 1 pass from the right lobe. Procedure tolerated Well. Additional Comments Post procedure pain medication Oxycodone/acetaminophen 5/325 x 1-2 tabs prn Fentanyl 50 mcg IV q 30 min prn Immediate procedure complications Tissue was sent for: Routine histology. Fixation time: approximately 10 minutes before 9:02 AM. Also, a 2-3 mm extra piece was placed in RNA stabilization solution for VITALE [employer] [facility] studies in accordance with an IRB approved protocol. Follow-up appointment: As scheduled. I personally performed this procedure. I was present for all portions of this procedure. Moris Hawk MD WORKS MAKER documented in this encounter Plan of Treatment Upcoming Encounters Date Type Department Care Team (Late st Contact Info) Description 05/02/2025 11:30 AM CDT Procedure visit [facility] [address] [place] [address], [place] [address] 05/02/2025 12:30 PM CDT Office Visit [facility] [place] [address] [place] [address], [place] [address] Moris Leon MD [address] [place] [address] [place] [address] documented as of this encounter Goals Goal Patient Goal Type Associated Problems [...] one week prior to your last dose documented as of this encounter Procedures Procedure Name Priority Date/Time Associated Diagnosis Comments NEEDLE BIOPSY, LIVER Routine 07/03/2021 9:01 AM FIREWORKS MAKER Nonalcoholic steatohepatitis (VITALE) PATHOLOGY TISSUE Routine 07/03/2021 8:32 AM FIREWORKS MAKER Nonalcoholic steatohepatitis (VITALE) Family history of colon cancer COLONOSCOPY SCREEN 07/03/2021 8:18 AM FIREWORKS MAKER Nonalcoholic steatohepatitis (VITALE) Family history of colon cancer Special Needs Alexx Spring RN Johnson, Sarah N., RN PAOLA Herrera Same procedures for this Dr Hawk pt. ??Thanks! ?? Received Date Received Time May 07, 2021 11:55 AM BIOPSY LIVER (NEEDLE/PERCUTANE OUS) 07/03/2021 8:18 AM FIREWORKS MAKER Nonalcoholic steatohepatitis (VITALE) Family history of colon cancer Special Needs Alexx [place] RN Johnson, Sarah N., RN PAOLA Herrera Same procedures for this Dr Hawk pt. ??Thanks! ?? Received Date Received Time May 07, 2021 11:55 AM GLUCOSE - POINT OF CARE Routine 07/03/2021 7:26 AM FIREWORKS MAKER ENDOSCOPY, COLON, SCREENING Routine 07/03/2021 7:24 AM FIREWORKS MAKER Family history of colon cancer documented in this encounter Results * NEEDLE BIOPSY, LIVER (07/03/2021 9:01 AM FIREWORKS MAKER) Narrative [facility] - 07/03/2021 9:01 AM FIREWORKS MAKER Moris Hawk MD ? 07/03/2021 ??9:03 AM ??PERCUTANEOUS LIVER BIOPSY PROCEDURE NOTE Patient Name: Delmi Briseno ??Date: 07/03/2021 Time: 9:02 AM Attending: Moris Hawk MD Fellow: None Diagnosis/Indication: ??VITALE, elevated liver stiffness Location: Endoscopy Admission Status: Outpatient PERMIT The indications, risks, benefits and alternatives, as described below, were explained to the patient who agreed to proceed. Signed, informed consent was obtained. ?? Possible risks of liver biopsy include: ? Bleeding- risk of hemodynamically significant bleed requiring blood transfusion or surgery is approximately 1:1,000 ?? Perforation (gallbladder, lung, bowel, kidney, other) the risk of perforation is less than 1:1,000 ?? Severe pain after biopsy, including referred shoulder pain; the risk of pain requiring analgesics is approximately 1:4. PROCEDURE DESCRIPTION The patient was placed in the supine position. The liver was palpated and percussed and an appropriate intercostal location was identified. Ultrasound Limited abdominal ultrasound for localization was performed. Comments: The liver was noted to be in a good position. The area was then prepped and draped in the usual sterile manner. 20 ml 1% lidocaine was used as a local anesthetic. Intravenous anxiolytic Versed 0 mg IV ? Fentanyl 0 mcg IV Biopsy performed after an endoscopic procedure: Yes. ?? Instrument 16 G BioPince set at 33 mm (27 mm core) Adequate tissue was obtained using 1 pass from the right lobe. Procedure tolerated Well. Additional Comments ?? Post procedure pain medication Oxycodone/acetaminophen 5/325 x 1-2 tabs prn Fentanyl 50 mcg IV q 30 min prn Immediate procedure complications ?? Tissue was sent for: Routine histology. Fixation time: approximately 10 minutes before 9:02 AM. Also, a 2-3 mm extra piece was placed in RNA stabilization solution for [facility] [employer] [facility] studies in accordance with an IRB approved protocol. Follow-up appointment: As scheduled. I personally performed this procedure. I was present for all portions of this procedure. Moris Hawk MD Moris Leon MD GI PROCEDU RE ORDERABLES [facility] PROVATION * PATHOLOGY TISSUE (07/03/2021 8:32 AM FIREWORKS MAKER) Case Report Surgical Pathology Report ? Case: [id number] ? Authorizing Provider: ??Moris Hawk MD ? Collected: ? 07/03/2021 08:32 AM ? Ordering Location: ? [facility] ?Received: ?07/03/2021 11:24 AM ? Pathologist: ? Elin Nunes MD ? Specimens: ?? A) - Polyp Sigmoid, sigmoid polyp ? B) - Liver, Please send 10 unstained slides to GI studies/[facility] attn Shelly ? Cattoor RN [phone] ? 07/12/2021 9:31 AM [facility] Final Diagnosis Large intestine, sigmoid polyp, biopsy (A): - Benign polypoid mucosa Liver, biopsy (B): - Steatohepatitis, NAFLD activity score 3/8 - Zone 3 perisinusoidal and periportal fibrosis, stage 2 07/12/2021 9:31 AM [facility] Microscopic Description and Comment The liver has 9 portal triads. The liver shows 30% macrovesicular steatosis (1 point), minimal to mild lobular activity (1 focus /20X) (1 point), and occasional ballooned hepatocytes (1 point), mostly in zone 3. Portal triads have focal mild lymphocytic infiltrates without significant interface activity. The portal tracts are generally small, although a few show early periportal fibrosis on the trichrome stain. The trichrome stain also shows zone 3 perisinusoidal and pericellular fibrosis. The reticulin stain shows disruption in areas of steatosis. The PAS-D stain is negative for alpha-1 antitrypsin globules. The iron stain is negative. Controls stained appropriately. The steatosis, lobular activity, and ballooned hepatocytes are diagnostic of steatohepatitis. If graded and staged per the [facility] CRN protocol the findings are consistent with NAFLD activity score 3/8, and stage 2. Review of the medical record shows an MZ phenotype; the PAS-D stain is negative for alpha-1 antitrypsin globules. Per report, the findings do not differ substantially from the 2015 liver biopsy. 07/12/2021 9:31 AM [facility] Clinical History The patient is a 65-year-old woman with a prior right hemicolectomy for benign colonic tumor. Operative procedure/findings: colonoscopy - 2 mm sessile polyp in sigmoid, resected and retrieved. In 2019 labs included total bilirubin 0.7 (0.0-1.2 mg/dL), alkaline phosphatase 94 (29-117 IU/L), AST 41 (0-40 IU/L), ALT 50 (0-32 IU/L). 07/12/2021 9:31 AM [facility] Gross Description The requisition and specimen(s) are identified with the patient's name Delmi Briseno. Received in formalin, specimen A , is a 0.5 x 0.3 x 0.2 cm pink-cortes tissue, submitted in toto in cassette A1. Received in formalin, specimen B , is a 2.2 x 0.1 x 0.1 cm cortes-brown tissue core, submitted in toto in cassette B1. DF 07/12/2021 9:31 AM [facility] Disclaimer The performance characteristics of all immunohistochemical and indirect immunofluorescence stains (if any) cited in this report were determined by the Histopathology Laboratory of [facility]. Some of these tests were developed by our own laboratory and have not been cleared or approved by the US Food and Drug Administration. The FDA does not require this test to go through premarket FDA review. These tests are used for clinical purposes. They should not be regarded as investigational or for research. This laboratory is certified under the Clinical Laboratory Improvement Amendments (CLIA) as qualified to perform high complexity clinical laboratory testing. This case has been personally reviewed and interpreted by the attending (teaching) pathologist. 07/12/2021 9:31 AM [facility] Embedded Images 07/12/2021 9:31 AM [facility] Biopsy, NOS POLYP OF SIGMOID COLON / Unknown 07/03/2021 8:32 AM FIREWORKS MAKER 07/03/2021 11:24 AM FIREWORKS MAKER Comment:Pre-op diagnosis: Nonalcoholic steatohepatitis (VITALE) [K75.81] Family history of colon cancer [Z80.0] Biopsy, Needle ENTIRE LIVER / Unknown 07/03/2021 8:39 AM FIREWORKS MAKER 07/03/2021 11:24 AM FIREWORKS MAKER Comment:Pre-op diagnosis: Nonalcoholic steatohepatitis (VITALE) [K75.81] Family history of colon cancer [Z80.0] Moris Leon MD LAB - PATH OLOGY/CYTOLOGY ORDERABLES [facility] [address] [phone] * (ABNORMAL) GLUCOSE - POINT OF CARE (07/03/2021 7:26 AM FIREWORKS MAKER) Glucose WB/POC 134(H) 70 - 115 mg/dL 07/03/2021 7:31 AM FIREWORKS MAKER [facility] Specimen Type Arterial 07/03/2021 7:31 AM FIREWORKS MAKER [facility] Blood BLOOD SPECIMEN / Unknown 07/03/2021 7:26 AM FIREWORKS MAKER 07/03/2021 7:31 AM FIREWORKS MAKER Moris Leon MD LAB - [facility] ORDERABLES [address] [address], [facility] [phone] * ENDOSCOPY, COLON, SCREENING (07/03/2021 7:24 AM FIREWORKS MAKER) Report Endoscopy POC Endoscopy Department Report _ Patient Name: Delmi Briseno ?Procedure Date: 07/03/2021 7:24 AM ? Date of : 1955 Classification: Outpatient ?Gender: Female Ethnicity: Not or ? Race: White _ Providers: ?Moris Hawk MD, Sourav Madrid (Fellow) Referring : ? Montana Lion (Referring MD) Procedure: ?Colonoscopy Indications: ?High risk colon cancer surveillance: Personal ?history of colonic polyps, prior right hemicolectomy Medications: ?Monitored Anesthesia Care Patient Profile: ?65 year old female with family history of colon ?cancer (father in 's), personal history of colon ?polyps, and hemicolectomy [...] and ?oxygen saturations were monitored continuously. The ?[id number] was introduced through the anus and ?advanced to the cecum, identified by appendiceal ?orifice and ileocecal valve. The colonoscopy was ?performed without difficulty. The patient tolerated ?the procedure well. The quality of the bowel ?preparation was evaluated using the BBPS (Bayard ?Bowel Preparation Scale) with scores of: Right [...] in the sigmoid colon, removed ?with a jumbo cold forceps. Resected and retrieved. ?4) Diverticulosis [...] Procedure Code(s): ? --- Professional --- ? 64926, Colonoscopy, flexible; with biopsy, single or multiple Diagnosis Code(s): ?--- Professional --- ?Z86.010, Personal history of colonic polyps ?Z98.0, Intestinal bypass and anastomosis status ?K64.0, First degree hemorrhoids ?K63.5, Polyp of colon ?K57.30, Diverticulosis of large intestine without ?perforation or abscess without bleeding CPT copyright 2019 [employer]. All rights reserved. The codes documented in this report are preliminary and upon gang investigator review may be revised to meet current compliance requirements. Moris Hawk MD 07/03/2021 9:08:27 AM This report has been signed electronically. Note Initiated On: 07/03/2021 7:24 AM Number of Addenda: 0 ? [facility] ? [address] [place], [place] [address] [place] [address] PROVATION 07/03/2021 7:24 AM FIREWORKS MAKER Moris Leon MD GI PROCEDU RE ORDERABLES [facility] [employer]ATION documented in this encounter Visit Diagnoses Diagnosis Family history of colon cancer Family history of malignant neoplasm of gastrointestinal tract Nonalcoholic steatohepatitis (VITALE) Other chronic nonalcoholic liver disease documented in this encounter Administered Medications Inactive Administered Medications - up to 3 most recent administrations Medication Order MAR Action Action Date Dose Rate Site 0.9% NaCl injection 3 mL 3 mL, Intracatheter, PRE-PROCEDURE MULTIPLE, Starting on Fri07/03/21 at 0752, Until Fri07/03/21 at 1219, For Saline Lock flushes if one is inserted for Bronchoscopy/Endoscopy procedure., Pre-procedure (GI) acetaminophen (Tylenol) tablet 1,000 mg 1,000 mg, Oral, ONCE PRN, Mild Pain, Headache, 1 dose, Starting on Fri07/03/21 at 0900, Until Fri07/03/21 at 1002 $ Given 07/03/2021 10:02 AM FIREWORKS MAKER 1,000 mg lidocaine (Xylocaine) 1 % injection PRN, Starting on Fri07/03/21 at 0848, Until Fri07/03/21 at 1219, Intra-procedure (GI) $ Given 07/03/2021 8:48 AM FIREWORKS MAKER 20 mL Abdominal Tissue oxyCODONE-acetaminophen (Percocet) 5-325 MG tablet 1 tablet 1 tablet, Oral, EVERY 30 MIN PRN, Moderate Pain, Severe Pain, 2 doses, Starting on Fri07/03/21 at 0901, Until Fri07/03/21 at 1219 documented in this encounter Active and Recently Administered Medications Times are shown in FIREWORKS MAKER. Scheduled Medication Order 07/01/2021 07/02/2021 07/03/2021 0.9% NaCl injection 3 mL 3 mL, Intracatheter, PRE-PROCEDURE MULTIPLE, Starting on Fri07/03/21 at 0752, Until Fri07/03/21 at 1219, For Saline Lock flushes if one is inserted for Bronchoscopy/Endoscopy procedure., Pre-procedure (GI) PRN Medication Order 07/01/2021 07/02/2021 07/03/2021 acetaminophen (Tylenol) tablet 1,000 mg (COMPLETED) 1,000 mg, Oral, ONCE PRN, Mild Pain, Headache, 1 dose, Starting on Fri07/03/21 at 0900, Until Fri07/03/21 at 1002 1002 ($ Given - Prov ider: Annemarie Potter RN) lidocaine (Xylocaine) 1 % injection PRN, Starting on Fri07/03/21 at 0848, Until Fri07/03/21 at 1219, Intra-procedure (GI) 0848 ($ Given - Prov ider: Moris Hawk MD) oxyCODONE-acetaminophen (Percocet) 5-325 MG tablet 1 tablet 1 tablet, Oral, EVERY 30 MIN PRN, Moderate Pain, Severe Pain, 2 doses, Starting on Fri07/03/21 at 0901, Until Fri07/03/21 at 1219 documented in this encounter Care Teams Iron Worker Relationship Specialty Start Date End Date Montana Lion MD [address] [place] [address] PCP - General 11/20/15 documented as of this encounter
--- OUTSIDE RECORDS SUMMARY | 2024-08-03 20:30 | XMS_ITS | Encounter Summary ---
Author Organization [facility] Health Address [address] [place] [address] Care Team Providers Care Auto Parker Name Role Phone Montana Lion MD Primary Care Provider [phone] Encounter Details Date Type Department Care Team (Late Contact Info) Description 11/17/2018 Orders Only [facility] - GI [address] [place] [phone] Moris Parish i, MD [address] [place] [address] [place] [address] Nonalcoholic steatohepatitis (VITALE) Social History Tobacco Use Types Packs/Day Years [...] AM CDT documented as of this encounter Plan of Treatment Upcoming Encounters Date Type Department Care Team (Late Contact Info) Description 05/02/2025 11:30 AM CDT [facility] [address] [place] [phone] 05/02/2025 12:30 PM CDT Office Visit [facility] - GI [address] [facility], [place] [address] Moris Leon MD [address] [place] [address] [place] [address] documented as of this encounter Results * IN LIVER ELASTOGRAPHY (11/28/2018 3:29 PM CDT) Narrative Moris Hawk MD - 11/28/2018 3:29 PM CDT Moris Hawk MD ? 11/28/2018 ??3:29 PM Diagnosis: VITALE RN verified patient not , no implanted devices and NPO for prior 3 hours. Vital signs taken, procedure explained and consent signed. Date of Exam: 11/16/2018 Liver Stiffness: (E, kPa) median: ?9.0 IQR (interquartile range): ?? 1.5 IQR/Median% (ideally < 30%): ??17 CAP (controlled attenuation parameter): ??383 Technical Difficulty: None Ordering Provider: Dr. Moris Hawk Phone Fax Fibroscan interpretation: I have personally reviewed the Fibroscan report and associated tracings. The calculated liver stiffness (E, kPa) indicates that: The probability of advanced liver fibrosis is: moderate. The loss of ultrasound signal, (controlled attenuation parameter, CAP [dB/m]), indicates that the probability of hepatic steatosis is: high. Moris Hawk MD The following criteria are used to indicate the probability of advanced (stage 3-4) fibrosis: < 7.0 kPa: low 7.0-8.9 kPa: low to moderate 9.0-14.9 kPa: moderate 15-20 kPa: high > 20 kPa: very high Liver stiffness > 20 kPa is also associated with a high probability of complications of portal hypertension including varices and ascites. Liver stiffness > 50 kPa is associated with a high risk of variceal bleeding. Note: Liver stiffness is increased by factors other than fibrosis including passive congestion, infiltrative processes, active alcoholism, biliary obstruction and marked inflammation. The interpretation of the Fibroscan result provided above may not have taken such factors into account. Disease etiology also influences Fibroscan cutoff values for fibrosis stages and the following cutoffs have been proposed (Brooklyn et al, Clin Gastro Hepatol 2015; 13:27-36): Cutoffs for Stage 3 and Stage 4 fibrosis respectively: Hepatitis B: >9 and >11.7 kPa Hepatitis C: >9.5 and >12.5 kPa HCV-HIV: >11 and >14 kPa Cholestatic liver diseases: >10 and >17.9 kPa NAFLD/VITALE: >10 and >14 kPa CAP estimates of steatosis: normal <200 dB/m maybe present 200 to 250 dB/m moderate 250-300 dB/m substantial > 300 dB/m (Note that Fibroscan is not a quantitative measure of liver fat and the risk of NAFLD progression is unrelated to the degree of steatosis.) These criteria are estimates and may change as additional supporting data becomes available. http://www.[facility] rehabilitation institute of st. louisGlowing Plant.PhosImmune/lwi-ermrldwd-xnxthjaqso Moris Leon MD PROCEDURE/ MINOR SURGICAL ORDERABLES documented in this encounter Visit Diagnoses Diagnosis Nonalcoholic steatohepatitis (VITALE) Other chronic nonalcoholic liver disease documented in this encounter Care Teams Auto Parker Relationship Specialty Start Date End Date Montana Lion MD [address] [place] [address] PCP - General 11/20/15 documented as of this encounter
--- OUTSIDE RECORDS SUMMARY | 2024-08-03 20:30 | XMS_ITS | Encounter Summary ---
Author Organization [facility] Health Address [address] [place] [address] Care Team Providers Care Electrical Controls Engineer Name Role Phone Montana Lion MD Primary Care Provider [phone] Encounter Details Date Type Department Care Team (Late Contact Info) Description 12/17/2017 Orders Only [facility] - GI [address] [place] [phone] Moris Parish i, MD [address] [place] [address] [place] [address] Nonalcoholic steatohepatitis (VITALE) Social History Tobacco Use [...] Description 05/02/2025 11:30 AM CDT [facility] [address] [place] [phone] 05/02/2025 12:30 PM CDT Office Visit [facility] - GI [address] [place], [place] [address] Moris Leon MD [address] [place] [address] [place] [address] documented as of this encounter Visit Diagnoses Diagnosis Nonalcoholic steatohepatitis (VITALE) Other chronic nonalcoholic liver disease documented in this encounter Care Teams Electrical Controls Engineer Relationship Specialty Start Date End Date Montana Lion MD [address] [place] [phone] PCP - General 11/20/15 documented as of this encounter
--- OUTSIDE RECORDS SUMMARY | 2024-08-03 20:30 | XMS_ITS | Encounter Summary ---
Author Organization [facility] [employer] Address [address] [place] [address] Care Team Providers Care System Designer Name Role Phone Montana Lion MD Primary Care Provider [phone] Reason for Visit * Auth/Cert Specialty Diagnoses / Procedures Referred By Traci aguilar Referred To Contact Diagnoses Nonalcoholic steatohepatitis (VITALE) Family history of colon cancer Procedures ME NEEDLE BIOPSY LIVER ME COLONOSCOPY,BIOPSY ME COLONOSCOPY,DIAGNOSTIC BIOPSY LIVER (NEEDLE/PERCUTANEOUS) COLONOSCOPY SCREEN Referral ID Status Reason Start Date Expiration Date Visits Re quested Visits Authorized [id number] 1 1 Encounter Details Date Type Department Care Team (Late st Contact Info) Description 07/03/2021 8:00 AM CHIEF DESIGN ENGINEER - 07/03/2021 9:00 AM [facility] Surgery [facility] ENDOSCOPY [address] [place] [address] Moris Leon MD [address] [facility] 2L [place] [address] BIOPSY LIVER--plt 323, inr 1.1 Surgery Details Date/Time Status Location OR Service Patient Class Case Class Case Type Trauma Case? 07/03/2021 8:00 AM Posted [facility] Endoscopy ENDO 4 Gastroenterology Surgery Day Care Panel 1 Procedure LRB Anes Op Region Wound Class Comments BIOPSY LIVER--plt 323, inr 1.1 N/A Local NA liver biopsy COLONOSCOPY SCREEN N/A MAC NA sigmoid polyp x 1 -jumbo forceps diverticulosis right hemicolectomy Surgeon Surgeon Role Service Panel Moris Leon MD Primary Gastroent erology 1 Sourav Madrid MD 1 Special Needs Alexx Spring RN Johnson, Sarah N., GEOFFREY Herrera Same procedures for this Dr Hawk pt. ??Thanks! ?? Received Date Received Time May 07, 2021 11:55 AM documented in this encounter Social History Tobacco Use Types Packs/Day Years [...] Sign Reading Time Taken Comments Blood Pressure 165/77 07/03/2021 7:36 AM CHIEF DESIGN ENGINEER Pulse 78 07/03/2021 7:36 AM CHIEF DESIGN ENGINEER Temperature 36.6 ??C (97.9 ??F) 07/03/2021 7:08 AM CS T Respiratory Rate 16 07/03/2021 7:36 AM CHIEF DESIGN ENGINEER Oxygen Saturation - - Inhaled Oxygen Concentration - - Weight 107.5 kg (237 lb) 07/03/2021 7:04 AM CHIEF DESIGN ENGINEER Height 157.5 cm (5' 2 ) 07/03/2021 7:04 AM CHIEF DESIGN ENGINEER Body Mass Index 43.35 07/03/2021 7:04 AM CHIEF DESIGN ENGINEER documented in this encounter Discharge Instructions * Discharge Instructions* Annemarie Potter RN - 07/03/2021 9:19 AM CHIEF DESIGN ENGINEER Images from the original note were not [...] ask them during your visits. ?? Copyright [employer] 2020 Information is for End User's use only and may not be sold, redistributed or otherwise used for commercial purposes. All illustrations and images included in CareNotes?? are the copyrighted property of [employer]. or [employer] The above information is an educational paraprofessional only. It is not intended as medical [...] ask them during your visits. ?? Copyright [employer] 2020 Information is for End User's use only and may not be sold, redistributed or otherwise used for commercial purposes. All illustrations and images included in CareNotes?? are the copyrighted property of [employer], [employer]. or [employer] The above information is an educational paraprofessional only. It is not intended as medical advice for individual conditions or treatments. Talk to your doctor, nurse or pharmacist before following any medical regimen to see if it is safe and effective for you. F DESIGN ENGINEER documented in this encounter Medications at Time [...] Diagnosis ??? Nonalcoholic steatohepatitis (VITALE) 01/04/14 US ([place]): diffuse steatosis with focal sparing in the left lobe. 09/27/14 liver biopsy: VITALE, stage 2 11/16/18 [facility]roscan CAP 383, LSM 9.0 kPa dwp 05/01/20 Fibroscan CAP 325, LSM 10.9 kPa dwp 05/07/21 [facility]roscan CAP 381, LSM 10.3 kPa dwp 06/20/21 [facility]roscan CAP 377, LSM 14.2 kPa ??? Htcax-3-nhussdlfcuv deficiency MZ, level 104 No PASD globules [...] infection. See consent form. 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 , 3 sons, 6 grandchildren. Social [...] 11/06/17 1030 11/06/16 0955 11/06/16 0955 09/12/14 0900 09/12/14 0900 WBC 8.2 8.8 8.5 - 7.7 - 8.2 HGB 12.9 12.4 13.2 - 12.7 - 11.6 PLT - - 324 - 310 - 320 INR - - 1.0 - 1.0 - 1.0 - = values in this interval not displayed. Recent Labs Component Name 04/20/20 1022 MCV 86 Recent Labs Component Name 04/20/20 1022 11/04/18 1515 11/06/17 1030 11/06/16 0955 11/06/16 0955 09/12/14 0900 09/12/14 09 NA - - 143 - 142 - 141 K - - 4.6 - 4.2 - 4.5 CL - - 100 - 100 - 100 CO2 25 25 24 - 24 - 24 BUN 15 16 - CREATININE 0.76 0.82 0.81 - 0.75 - 0.81 - = values in this interval not displayed. Recent Labs Component Name 04/20/20 1022 11/04/18 1515 11/06/17 1030 11/06/16 0955 11/06/16 0955 09/12/14 0900 09/12/14 0900 AST 41* 45* 64* - 52* - 24 ALT 50* 68* 64* - 65* - 40* ALKPHOS 94 83 77 - 63 - 83 TBILI - - 0.9 - 0.8 - 0.5 ALB - - 4.7 - 4.7 - 4.3 - = values in this interval not displayed. No results for input(s): CRP in the last 05156 hours. Sedation Plan: Monitored Anesthesia Care (MAC) by the anesthesia team. Procedure Plan: Based on the above assessment, we will perform the procedures indicated above. I have discussed the plan, risks, benefits and alternatives with the patient or guardian. When assessment above was not obtained immediately before the procedure, I have reassessed this patient and there are no changes. Sourav Madrid MD F DESIGN ENGINEER documented in this encounter Procedure Notes * [...] was placed in RNA stabilization solution for [facility] studies in accordance with an IRB approved protocol. Follow-up appointment: As scheduled. I personally performed this procedure. I was present for all portions of this procedure. Moris Hawk MD F DESIGN ENGINEER documented in this encounter Plan of Treatment Upcoming Encounters Date Type Department Care Team (Late st Contact Info) Description 05/02/2025 11:30 AM CDT Procedure visit [facility] - GI [address] [place] [phone] 05/02/2025 12:30 PM CDT Office Visit [facility] - GI [address] [place] [phone] Malathi-Moris Hawk MD [address] [place] [address] [place] [address] documented as of this encounter Goals Goal [...] NEEDLE BIOPSY, LIVER Routine 07/03/2021 9:01 AM CHIEF DESIGN ENGINEER Nonalcoholic steatohepatitis (VITALE) PATHOLOGY TISSUE Routine 07/03/2021 8:32 AM CHIEF DESIGN ENGINEER Nonalcoholic steatohepatitis (VITALE) Family history of colon cancer COLONOSCOPY SCREEN 07/03/2021 8:18 AM CHIEF DESIGN ENGINEER Nonalcoholic steatohepatitis (VITALE) Family history of colon cancer Special Needs Alexx Spring, GEOFFREY Alanis, Sharon Weeks, RN PAOLA Herrera Same procedures for this Dr Hawk pt. ??Thanks! ?? Received Date Received Time May 07, 2021 11:55 AM BIOPSY LIVER (NEEDLE/PERCUTANE OUS) 07/03/2021 8:18 AM CHIEF DESIGN ENGINEER Nonalcoholic steatohepatitis (VITALE) Family history of colon cancer Special Needs Alexx Spring RN Johnson, Sarah N., RN [place] Sharon Same procedures for this Dr Hawk pt. ??Thanks! ?? Received Date Received Time May 07, 2021 11:55 AM GLUCOSE - POINT OF CARE Routine 07/03/2021 7:26 AM CHIEF DESIGN ENGINEER ENDOSCOPY, COLON, SCREENING Routine 07/03/2021 7:24 AM CHIEF DESIGN ENGINEER Family history of colon cancer documented in this encounter Results * NEEDLE BIOPSY, LIVER (07/03/2021 9:01 AM CHIEF DESIGN ENGINEER) Narrative [facility] - 07/03/2021 9:01 AM CHIEF DESIGN ENGINEER Moris Hawk MD ? 07/03/2021 ??9:03 AM [...] Moris Leon MD GI PROCEDU RE ORDERABLES [facility] * PATHOLOGY TISSUE (07/03/2021 8:32 AM CHIEF DESIGN ENGINEER) Case Report Surgical Pathology Report ? Case: [id number] ? Authorizing Provider: ??Moris Hawk MD ? Collected: ? 07/03/2021 08:32 AM ? Ordering Location: ? [facility] ENDOSCOPY ?Received: ?07/03/2021 11:24 AM ? Pathologist: ? Elin Nunes MD ? Specimens: ?? A) - Polyp Sigmoid, sigmoid polyp ? B) - Liver, Please send 10 unstained slides to GI studies/[facility] attn Shelly ? Cattoor RN [phone] ? 07/12/2021 9:31 AM CHIEF DESIGN ENGINEER [facility] Final Diagnosis Large intestine, sigmoid polyp, biopsy (A): - Benign polypoid mucosa Liver, biopsy (B): - Steatohepatitis, NAFLD activity score 3/8 - Zone 3 perisinusoidal and periportal fibrosis, stage 2 07/12/2021 9:31 AM [facility] Microscopic Description and Comment The [...] the 2015 liver biopsy. 07/12/2021 9:31 AM [facility] Clinical History The patient is a 65-year-old woman with a prior right hemicolectomy for benign colonic tumor. Operative procedure/findings: colonoscopy - 2 mm sessile polyp in sigmoid, resected and retrieved. In 2019 labs included total bilirubin 0.7 (0.0-1.2 mg/dL), alkaline phosphatase 94 (29-117 IU/L), AST 41 (0-40 IU/L), ALT 50 (0-32 IU/L). 07/12/2021 9:31 AM [facility] Gross Description The requisition and [...] in cassette B1. DF 07/12/2021 9:31 AM [facility] Disclaimer The performance characteristics of all immunohistochemical and indirect immunofluorescence stains (if any) cited in this report were determined by the Histopathology Laboratory of [facility]. Some of these tests were developed by [...] the attending (teaching) pathologist. 07/12/2021 9:31 AM [facility] Embedded Images 07/12/2021 9:31 AM [facility] Biopsy, NOS POLYP OF SIGMOID COLON / Unknown 07/03/2021 8:32 AM CHIEF DESIGN ENGINEER 07/03/2021 11:24 AM CHIEF DESIGN ENGINEER Comment:Pre-op diagnosis: Nonalcoholic steatohepatitis (VITALE) [K75.81] Family history of colon cancer [Z80.0] Biopsy, Needle ENTIRE LIVER / Unknown 07/03/2021 8:39 AM CHIEF DESIGN ENGINEER 07/03/2021 11:24 AM CHIEF DESIGN ENGINEER Comment:Pre-op diagnosis: Nonalcoholic steatohepatitis (VITALE) [K75.81] Family history of colon cancer [Z80.0] Moris Leon MD LAB - PATH OLOGY/CYTOLOGY ORDERABLES Performing Organization Address [facility]/State/[facility] [place] Phone Number [facility] [address] [phone] * (ABNORMAL) GLUCOSE - POINT OF CARE (07/03/2021 7:26 AM CHIEF DESIGN ENGINEER) Glucose WB/POC 134(H) 70 - 115 mg/dL 07/03/2021 7:31 AM [facility] Specimen Type Arterial 07/03/2021 7:31 AM [facility] Blood BLOOD SPECIMEN / Unknown 07/03/2021 7:26 AM CHIEF DESIGN ENGINEER 07/03/2021 7:31 AM CHIEF DESIGN ENGINEER Moris Leon MD LAB - [facility] ORDERABLES Performing Organization Address [facility]/State/ZIP Co [place] Phone Number [address] [address], [facility] [phone] * ENDOSCOPY, COLON, SCREENING (07/03/2021 7:24 AM CHIEF DESIGN ENGINEER) Report Endoscopy POC Endoscopy Department Report _ Patient Name: Delmi Briseno ?Procedure Date: 07/03/2021 7:24 AM ? Date of : 1955 Classification: Outpatient ?Gender: Female Ethnicity: Not or ? Race: White _ Providers: ?Moris Hawk MD, Sourav Madrid (Fellow) Referring MD: ? Montana Lion (Referring ) Procedure: ?Colonoscopy Indications: ?High risk colon cancer [...] and ?oxygen saturations were monitored continuously. The ?CF-AU495L was introduced through the anus and ?advanced to the cecum, identified by appendiceal ?orifice and ileocecal valve. The colonoscopy was ?performed without difficulty. The patient tolerated ?the procedure well. The quality of the bowel ?preparation was evaluated using the BBPS ([place] ?Bowel Preparation Scale) with scores of: Right [...] Procedure Code(s): ? --- Professional --- ? 66070, Colonoscopy, flexible; with biopsy, single or multiple Diagnosis Code(s): ?--- Professional --- ?Z86.010, Personal history of colonic polyps ?Z98.0, Intestinal bypass and anastomosis status ?K64.0, First degree hemorrhoids ?K63.5, Polyp of colon ?K57.30, Diverticulosis of large intestine without ?perforation or abscess without bleeding CPT copyright 2019 [employer]. All rights reserved. The codes documented in this report are preliminary and upon insole tack puller hand review may be revised to meet current compliance requirements. Moris Hawk MD 07/03/2021 9:08:27 AM This report has been signed electronically. Note Initiated On: 07/03/2021 7:24 AM Number of Addenda: 0 ? [facility] ? [address] [place] [address] [facility]OVATION 07/03/2021 7:24 AM CHIEF DESIGN ENGINEER Moris Leon MD GI PROCEDU RE ORDERABLES [facility] documented in this encounter Visit Diagnoses Diagnosis Family history of colon cancer Family history of malignant neoplasm of gastrointestinal tract Nonalcoholic steatohepatitis (VITALE) Other chronic nonalcoholic liver disease Nonalcoholic steatohepatitis (VITALE) Other chronic nonalcoholic liver disease Family history of colon cancer Family history of malignant neoplasm of gastrointestinal tract documented in this encounter Administered Medications Inactive [...] at 1002 $ Given 07/03/2021 10:02 AM CHIEF DESIGN ENGINEER 1,000 mg lidocaine (Xylocaine) 1 % injection PRN, Starting on Fri07/03/21 at 0848, Until Fri07/03/21 at 1219, Intra-procedure (GI) $ Given 07/03/2021 8:48 AM CHIEF DESIGN ENGINEER 20 mL Abdominal Tissue oxyCODONE-acetaminophen (Percocet) 5-325 MG tablet 1 tablet 1 tablet, Oral, EVERY 30 MIN PRN, Moderate Pain, Severe Pain, 2 doses, Starting on Fri07/03/21 at 0901, Until Fri07/03/21 at 1219 documented in this encounter Active and Recently Administered Medications Times are shown in CHIEF DESIGN ENGINEER. Scheduled Medication Order 07/01/2021 07/02/2021 07/03/2021 0.9% [...] 1219 documented in this encounter Care Teams System Designer Relationship Specialty Start Date End Date Montana Lion MD [address] [place] [phone] PCP - General 11/20/15 documented as of this encounter
--- OUTSIDE RECORDS SUMMARY | 2024-08-03 20:30 | XMS_ITS | Encounter Summary ---
Author Organization [facility] Health Address [address] [place] [address] Care Team Providers Care District Supervisor Name Role Phone Montana Lion MD Primary Care Provider [phone] Reason for Referral * Evaluate & Treat (Routine) - Closed Specialty Diagnoses / Procedures Referred By Traci aguilar Referred To Contact Gastroenterology Diagnoses Nonalcoholic steatohepatitis (RENTERIA) Procedures PROC FIBROSCAN Moris Leon MD [address] [facility] [address] [place] [address] [facility] [address] [place] [address] Referral ID Status Reason Start Date Expiration Date Visits Re quested Visits Authorized [id number] Closed 11/17/2019 05/15/2020 1 1 Reason for Visit * Reason Comments Renteria Stage 2 in 2014 Encounter Details Date Type Department Care Team (Latest Contact Info) Description 11/16/2018 10:40 AM CDT Office Visit [facility] [address] [place] [address], [place] [phone] Moris Tovar MD [address] [place] [address] [place] [address] Nonalcoholic steatohepatitis (RENTERIA) (Primary Dx); Iron deficiency; Sorsp-0-szjlaviiqkz deficiency (HCC) Social History Tobacco Use Types Packs/Day Years [...] AM CDT documented as of this encounter Patient Instructions * Patient Instructions* Moris Hawk MD - 11/16/2018 12:10 PM CDT Thank you for entrusting your healthcare to the physicians and other specialists at the [facility] Gastro[facility]ology and Hepatology clinic today. ?? Following your visit, you may receive a survey via email or U.S. Mail. We encourage you to respond to this confidential survey about your care. Your feedback helps us to provide quality service at every visit. Thank you for your help in making our practice meet higher expectations. ?? Contact information: To reach the clinic please call (8 am to noon, 1 to 4:30 pm weekdays). ? Press 1 to make schedule or cancel an appointment ? Press 2 for pharmacy refills ? Press 3 to speak with a nurse regarding a change in your condition. ? Many times your nurse may be busy seeing patients in clinic. In order to meet your needs timely we have implemented a nurse triage line to take your calls. ? We are closed from 12-1 for lunch ? After hours please call (hospital main number), ask the pneumatic jack operator to call the gastroenterology fellow information technology data analyst. ? Emergency: call 911 or go to your closest emergency room. ? We encourage you to use [employer] to send and receive messages and review your test results. Let us know if you need information on signing up for [employer]. ?? More information about us and our services can be found on our websites at [email or web address] and [email or web address] ?? Information about the [facility], a hnm-ksd-ubjncx foundation supporting liver disease research by your doctors and researchers at [facility], can be found at: [email or web address] ?? IMPORTANT 11/16/2018 ?? The following information and instructions are from your visit today: 1. Continue to focus on healthy eating and regular exercise. 2. We'll recheck a Fibroscan next year and plan a liver biopsy if that still shows increased liver stiffness. The following are my general recommendations for people with liver problems: 1. Stay active. Walking on a daily basis is a good start, but it is better to do a combination of aerobic exercise (the kind that gets you sweaty and out of breath) for at least one half hour per dayalternating with strengthtraining (weights, yoga). Many people find that it helps to have a trainerto provide guidance. 2. Eat healthy foods. Good advice on nutrition can be found on the website for the [place] Healthy Eating Pyramid. Either search for that on the internet or go to: [email or web address]/nutritionsource/wqzl-bralhl-vnu-eat/pyramid/ 3. Avoid fast foods and sugar sweetened beverages (examples: Pepsi, Coke, Mtn Dew, Shira Tea, Sobe drinks, bottled lemonaid, bottled juice, KoolAid). 4. Avoid trans-fats. On the food label, these are called partially hydrogenated vegetable oil. Note that packages can say Zero trans-fats and the food label can say Trans-fat: 0 grams yet the food is allowed to contain up to a half gram of trans-fat per serving. To minimize cardiovascular risks (the chance of having a stroke or heart attack), the current recommendation is to eat no more that 2 grams of trans-fats daily. 5. Occasional alcohol is okay. No more than one beer or glass of wine daily though. 6. Tylenol (acetaminophen) is okay to take for pain, but you should limit your dose to no more [id number] mg daily. This means that you should take no more than 4 tablets per day (500 mg acetaminopheneach). Remember that acetaminophen is in other medications (eg, Percocet, Vicodin) and the amount that youget from these medications needs to be included in the daily total. 7. Statin drugs for treating an elevated cholesterol level are generally safe for people with fatty liver disease, despite what TV ads say about using one of these medications when you have liver disease. If one is started, it is worthwhile to check liver enzymes a few times over the first 6 months to be certain. As with any medication, if you have any new symptoms after starting a medication, report it immediately to your doctor. documented in this encounter Progress Notes * Moris Hawk MD - 11/16/2018 11:57 AM CDT I saw Ms. Briseno in Liver Clinic at [facility] today for follow up visit regarding: Chief Complaint Patient presents with ??? Renteria Stage 2 in 2014 Patient Active Problem List: Iron deficiency Nonalcoholic steatohepatitis (RENTERIA) Ngjac-4-toltotmwfer deficiency Obesity Type 2 diabetes mellitus Hypertension Osteoarthritis Family history of colon cancer Heartburn Hypercholesterolemia Interim history: No new problems. She reports that her level of energy is okay. For exercise she has been walking, gets 6-7k steps in per day. Impediments to regular exercise she reports include cold weather, busy schedule. She notes no right upper quadrant abdominal pain. Fast food consumption: 2-3 times per week. Sugar sweetened beverage consumption: none. Current Outpatient Prescriptions Medication Sig ??? atorvastatin (LIPITOR) 10 MG tablet Take 10 mg by mouth at bedtime ??? Coenzyme Q10 (COQ10) 100 MG Take by mouth once daily ??? cyanocobalamin (VITAMIN B-12) 500 MCG tablet Take 500 mcg by mouth once daily ??? IRON PO Take 1 tablet by mouth once daily ??? KOMBIGLYZE XR 2.5-1000 MG tablet Take 1 tablet by mouth 2 times daily ??? losartan (COZAAR) 25 MG tablet Take 25 mg by mouth once daily ??? Multiple Vitamins-Minerals (MULTIVITAMIN ADULT PO) Take by mouth once daily ??? multivitamins (ONE A DAY) capsule Take 1 capsule by mouth ??? omeprazole (PRILOSEC) 20 MG capsule Take 20 mg by mouth daily before breakfast ??? vitamin D3 (CHOLECACIFEROL) 5000 UNITS Take by mouth once daily No current facility-administered medications for this visit. I have reviewed with Ms. Briseno her Medical, Social and Family history and I have updated and corrected these sections of her [facility] electronic health record based on my discussions with her and/orher family members present at her visit today. She describes her current alcohol consumption as none. 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 , 3 sons, 6 grandchildren. Review of systems: Per student's note. Lot's of snoring. No sleep study yet. On exam today, she appeared obese, alert and anicteric. I reviewed today's vital signs with the patient. There were no vitals filed for this visit.There is no height or weight on file to calculate BMI. Wt Readings from Last 3 Encounters: 11/16/18 104.3 kg (229 lb 14.4 oz) 11/17/17 108.9 kg (240 lb) 11/11/16 104.8 kg (231 lb) Affect good. Seen alone. Skin: no spider angiomata. Lungs were clear to auscultation bilaterally. Heart sounds were regular rate and rhythm. There were no murmurs. Abdomen was obese, soft and nontender. Liver edge palpable: no. Spleen palpable: no. Ascites: none. Hernias: none. Pretibial edema: none. Relevant test results: Recent Labs Component Name 11/04/18 1515 11/06/17 1030 11/06/16 0955 09/12/14 0900 TBILI - 0.9 0.8 0.5 TBIL 0.7 - - - ALKPHOS 83 77 63 83 ALT 68* 64* 65* 40* AST 45* 64* 52* 24 ALB - 4.7 4.7 4.3 ALBUMIN 4.4 - - - NA - 143 142 141 SODIUM 140 - - - POTASSIUM 4.5 - - - CO2 25 24 24 24 CREATININE 0.82 0.81 0.75 0.81 BUN 16 15 17 17 HGB 12.4 13.2 12.7 11.6 WBC 8.8 8.5 7.7 8.2 PLTCOUNT 304 - - - PLT - 324 310 320 INR - 1.0 1.0 1.0 11/16/18 Fibroscan CAP 383, E 9.0 kPa Assessment and Plan: 1. 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 LFTs still up a bit. 2. Losing weight--this is good. 3. Fibroscan liver stiffness up a bit more than I'd expect. Will recheck again next year and decideif a biopsy is needed to reassess for cirrhosis. 4. Continue to walk as much as possible. 5. Focus on healthy eating. 2. Hx of iron deficiency 1. Negative prior EGD and colonoscopy. 2. Continues to take oral supplement bid. 3. No recent iron level--check with next labs. 3. Snoring 1. I told her that I recommend a sleep study and she should discuss this with Dr. Lion. An appointment was scheduled for her to see me in followup in one year. Teaching physician attestation and verification: If a resident of fellow participated in this visit, I attest that I have personally seen and examined this patient with the resident or fellow today and I confirm their assessment and plan. If a student participated in the evaluation of this patient,I verify the medical student???s documentation/findings including history, physical exam and/or medical decision making. I have personally performed a physical exam and medical decision making (or other relevant process) for this service if I have documented these in the note above. To avoid unnecessary typing and thus allow more time for actual patient care, I typically copy my previous assessment and plan from a prior note and update it with current information. If this note contains an assessment and plan copied from one of my prior notes, I attest that it has been updated on this date of service with current information. Address letter to: Montana Lion MD [address] [facility] [phone] Orders Placed This Encounter ??? PROC FIBROSCAN 1 yr * Garrick Islas - 11/16/2018 11:36 AM CDT Medical student clinic note I saw Ms. Briseno in Liver Clinic at [facility] with Dr. Hawk today regarding: Chief Complaint Patient presents with ??? Renteria Patient Active Problem List: Iron deficiency Nonalcoholic steatohepatitis (RENTERIA) Rhovt-3-jaztgempoio deficiency Obesity Type 2 diabetes mellitus Hypertension Osteoarthritis Family history of colon cancer Heartburn Hypercholesterolemia History: Delmi Briseno is a 63 y/o woman with RENTERIA and Alpha 1 antitrypsin deficiency (phenotype MZ). Her energy level is ok. She does not exercise regularly. She eats fast food 3x/week, she avoids sweetened beverages (drinks diet). She does not drink alcohol. Current Outpatient Prescriptions Medication Sig ??? atorvastatin (LIPITOR) 10 MG tablet Take 10 mg by mouth at bedtime ??? Coenzyme Q10 (COQ10) 100 MG Take by mouth once daily ??? cyanocobalamin (VITAMIN B-12) 500 MCG tablet Take 500 mcg by mouth once daily ??? IRON PO Take 1 tablet by mouth once daily ??? KOMBIGLYZE XR 2.5-1000 MG tablet Take 1 tablet by mouth 2 times daily ??? losartan (COZAAR) 25 MG tablet Take 25 mg by mouth once daily ??? Multiple Vitamins-Minerals (MULTIVITAMIN ADULT PO) Take by mouth once daily ??? multivitamins (ONE A DAY) capsule Take 1 capsule by mouth ??? omeprazole (PRILOSEC) 20 MG capsule Take 20 mg by mouth daily before breakfast ??? vitamin D3 (CHOLECACIFEROL) 5000 UNITS Take by mouth once daily No current facility-administered medications for this visit. Social History Social History ??? Marital status: Spouse name: N/A ??? Number of children: N/A ??? Years of education: N/A Occupational History ??? Not on file. Social History Main Topics ??? Smoking status: Never Smoker ??? Smokeless tobacco: Never Used ??? Alcohol use No ??? Drug use: No ??? Sexual activity: Not on file Other Topics Concern ??? 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 , 3 sons, 6 grandchildren. No family history on file. 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 , 3 sons, 6 grandchildren. Positive review of systems: Gastrointestinal ROS: negative General ROS: snoring Negative review of systems: Gastrointestinal ROS: no abdominal pain, change in bowel habits, or black or bloody stools General ROS: No SOB, CP, fevers/chills On exam today, she appeared alert and comfortable. There were no vitals filed for this visit. Wt Readings from Last 3 Encounters: 11/16/18 104.3 kg (229 lb 14.4 oz) 11/17/17 108.9 kg (240 lb) 11/11/16 104.8 kg (231 lb) Affect Responsive. Skin: no jaundice, no spider angiomata. Lungs were clear to auscultation bilaterally. Heart sounds were regular rate and rhythm. There were no murmurs. Abdomen was obese, soft and nontender. Liver edge palpable: no. Spleen palpable: no. Ascites: none. Hernias: none. Pretibial edema: none. Relevant test results: ALT/AST 68/45 (64/64) AlkPhos 83 TBili 0.7 Albumin 4.4 INR 1.0 PLT 304 Fibroscan 11/16/2018 Elasticity 9.0 kPa CAP 383 Assessment and plan: 1. RENTERIA with alpha-1 antitrypsin MZ phenotype 1. Early fibrosis per fibroscan 2. Recheck fibroscan next year 3. Emphasized diet/exercise 2. Iron deficiency 1. Recheck iron, TIBC 3. Snoring 1. Recommend sleep study This has been discussed with my attending, Moris Hawk MD. Garrick Islas, MS4 documented in this encounter Plan of Treatment Upcoming Encounters Date Type Department Care Team (Late st Contact Info) Description 05/02/2025 11:30 AM CDT Procedure visit [facility] - [facility] [address] [place] [phone] 05/02/2025 12:30 PM CDT Office Visit [facility] [address] [place] [phone] Moris Leon MD [address] [place] [address] [place] [address] Scheduled Orders Name Type Priority Associated Diagnoses Orde r Schedule PROC FIBROSCAN Procedures Routine Nonalcoholic steatohepatitis (RENTERIA) Expected: 11/17/2019 (Approximate), Expires: 04/17/2020 documented as of this encounter Visit Diagnoses Diagnosis Nonalcoholic steatohepatitis (RENTERIA)- Primary Other chronic nonalcoholic liver disease Iron deficiency Other disorders of iron metabolism Egrhs-4-pdfehcgkrll deficiency (HCC) Ghlwx-3-niwxxhwrghf deficiency documented in this encounter Care Teams District Supervisor Relationship Specialty Start Date End Date Montana Lion MD [address] [place] [address] PCP - General 11/20/15 documented as of this encounter
--- OUTSIDE RECORDS SUMMARY | 2024-08-03 20:30 | XMS_ITS | Encounter Summary ---
Author Organization [facility] Health Address [address] [facility] [place] [address] Care Team Providers Care Cash Surrender Calculator Name Role Phone Montana Lion MD Primary Care Provider Encounter Details Date Type Department Care Team (Late st Contact Info) Description 06/18/2021 Orders Only [facility] [address] [place] [address] Ashley Rutledge, RN Social History Tobacco Use Types Packs/Day Years [...] Description 05/02/2025 11:30 AM CDT [place] [facility] [place] [address] [place] [phone] 05/02/2025 12:30 PM CDT Office Visit [facility] [address] [place] [phone] Moris Leon MD [address] [place] [address] [place] [address] documented as of this encounter Goals Goal [...] last dose documented as of this encounter Visit Diagnoses Not on filedocumented in this encounter Care Teams Cash Surrender Calculator Relationship Specialty Start Date End Date Montana Lion MD [address] [place] [address] PCP - General 11/20/15 documented as of this encounter
--- OUTSIDE RECORDS SUMMARY | 2024-08-03 20:30 | XMS_ITS | Encounter Summary ---
Author Organization [facility] Address [address] [place] [address] Care Team Providers Care Bite Block Maker Name Role Phone Montana Lion MD Primary Care Provider [phone] Reason for Visit * Evaluate & Treat (Routine) - Closed Specialty Diagnoses / Procedures Referred By Traci aguilar Referred To Contact Gastroenterology Diagnoses Nonalcoholic steatohepatitis (VITALE) Procedures PROC FIBROSCAN Moris Leon MD [address] [facility] [address] [place] [address] [facility] [address] [place] [address] Referral ID Status Reason Start Date Expiration Date Visits Re quested Visits Authorized [id number] Closed 11/17/2019 05/15/2020 1 1 Encounter Details Date Type Department Care Team (Latest Contact Info) Description 05/01/2020 2:00 PM CDT Procedure visit [facility] - GI [address] [place] [address], [place] [address] Moris [place] MD [address] [place] [address] [place] [address] Nonalcoholic steatohepatitis (VITALE) Social History Tobacco Use [...] AM CDT documented as of this encounter Progress Notes * Ashley Austin RN - 05/01/2020 1:47 PM CDT Diagnosis: VITALE RN verified patient not , no implanted devices and NPO for prior 3 hours. Vital signs taken, procedure explained and consent signed. Date of Exam: 05/01/2020 Liver Stiffness: (LSM, kPa) median: 10.9 IQR (interquartile range): 0.9 IQR/Median% (ideally < 30%): 8 CAP (controlled attenuation parameter): 325 Technical Difficulty: None Ordering Provider: Moris Hawk MD Phone Fax Fibroscan interpretation: I have personally reviewed the Fibroscan report and associated tracings. The calculated Liver Stiffness Measurement (LSM, kPa) indicates that: The probability of advanced [...] with a high risk of variceal bleeding. These interpretations are based on the following published data: Irvin PJ, Gris M, Kahty M, et al. Accuracy of FibroScan controlled attenuation parameter and liver stiffness measurement in assessing steatosis and fibrosis in patients with nonalcoholic fatty liver disease. Gastroenterology 2019;156:5736-2740. Duc MS, Michael R, Darian Graff ML, et al. Vibration-controlled transient elastography to assess fibrosis and steatosis in patients with nonalcoholic fatty liver disease. Clin Gastroenterol Hepatol 2019;17:156-163. Note: 1. Fibroscan cannot reliably identify earlier stages of fibrosis (ie distinguish F0 from F1 and F2)and thus a histologic stage cannot be predicted from the Fibroscan reading. 2. Assessing the likelihood of advanced fibrosis in patients with indeterminate liver stiffness measurement (LSM) by Fibroscan (e.g., 8-15 kPa) can be improved by also calculating the FIB4 score (Carson et al. Hepatology Communications 2019;3:2433-6545) or NAFLD Fibrosis score (Aguila et al. Clinical Gastroenterology and Hepatology 2019;17:3564-9615. from routine clinical data. 3. Liver stiffness can be increased by factors other than fibrosis including passive congestion, infiltrative processes, active alcoholism, biliary obstruction and marked inflammation. The interpretation of the Fibroscan result provided above may not have taken such clinical factors into account. Disease etiology also influences [...] CAP estimates of steatosis: normal <200 dB/m mild 200 to 250 dB/m moderate 250-290 dB/m substantial > 290 dB/m (Note that Fibroscan is not a quantitative measure of liver fat.) These criteria are estimates and may change as additional supporting data becomes available. [email or web address] documented in this encounter Procedure Notes * Ashley Austin RN - 05/01/2020 1:59 PM CDTAssociated Order(s): PROC FIBROSCAN Diagnosis: VITALE RN verified patient not , no implanted devices and NPO for prior 3 hours. Vital signs taken, procedure explained and consent signed. Date of Exam: 05/01/2020 Liver Stiffness: (LSM, kPa) median: 10.9 IQR (interquartile range): 0.9 IQR/Median% (ideally < 30%): 8 CAP (controlled attenuation parameter): 325 Technical Difficulty: None Ordering Provider: Moris Hawk MD Phone Fax Fibroscan interpretation: I have personally reviewed the Fibroscan report and associated tracings. The calculated Liver Stiffness Measurement (LSM, kPa) indicates that: The probability of advanced [...] with a high risk of variceal bleeding. These interpretations are based on the following published data: Irvin PJ, Gris M, Kathy M, et al. Accuracy of FibroScan controlled attenuation parameter and liver stiffness measurement in assessing steatosis and fibrosis in patients with nonalcoholic fatty liver disease. Gastroenterology 2019;156:6396-0688. Duc MS, Michael R, Van Natta ML, et al. Vibration-controlled transient elastography to assess fibrosis and steatosis in patients with nonalcoholic fatty liver disease. Clin Gastroenterol Hepatol 2019;17:156-163. Note: 1. Fibroscan cannot reliably identify earlier stages of fibrosis (ie distinguish F0 from F1 and F2)and thus a histologic stage cannot be predicted from the Fibroscan reading. 2. Assessing the likelihood of advanced fibrosis in patients with indeterminate liver stiffness measurement (LSM) by Fibroscan (e.g., 8-15 kPa) can be improved by also calculating the FIB4 score (Dinahe et al. Hepatology Communications 2019;3:5605-9636) or NAFLD Fibrosis score (Aguila et al. Clinical Gastroenterology and Hepatology 2019;17:4799-2148. from routine clinical data. 3. Liver stiffness can be increased by factors other than fibrosis including passive congestion, infiltrative processes, active alcoholism, biliary obstruction and marked inflammation. The interpretation of the Fibroscan result provided above may not have taken such clinical factors into account. Disease etiology also influences [...] CAP estimates of steatosis: normal <200 dB/m mild 200 to 250 dB/m moderate 250-290 dB/m substantial > 290 dB/m (Note that Fibroscan is not a quantitative measure of liver fat.) These criteria are estimates and may change as additional supporting data becomes available. [email or web address] [email or web address] documented in this encounter Plan of Treatment Upcoming Encounters Date Type Department Care Team (Late st Contact Info) Description 05/02/2025 11:30 AM CDT Procedure visit [facility] - GI [address] [place] [phone] 05/02/2025 12:30 PM CDT Office Visit [facility] - [address] [address] Moris Leon MD [address] [place] [address] [place] [address] documented as of this encounter Goals Goal [...] Procedure Name Priority Date/Time Associated Diagnosis Comments CO LIVER ELASTOGRAPHY Routine 05/01/2020 1:59 PM CDT Nonalcoholic steatohepatitis (VITALE) documented in this encounter Results * PROC FIBROSCAN (05/01/2020 1:59 PM CDT) Narrative Moris Hawk MD - 05/01/2020 1:59 PM CDT Moris Hawk MD ? 05/01/2020 ??3:23 PM Diagnosis: VITALE RN verified patient not , no implanted devices and NPO for prior 3 hours. Vital signs taken, procedure explained and consent signed. Date of Exam: 05/01/2020 Liver Stiffness: (LSM, kPa) median: ??10.9 IQR (interquartile range): ?? 0.9 IQR/Median% (ideally < 30%): ??8 CAP (controlled attenuation parameter): ??325 Technical Difficulty: None Ordering Provider: Moris Hawk MD Phone Fax Fibroscan interpretation: I have personally reviewed the Fibroscan report and associated tracings. The calculated Liver Stiffness Measurement (LSM, kPa) indicates that: The probability of advanced [...] with a high risk of variceal bleeding. These interpretations are based on the following published data: Irvin PJ, Gris M, Kathy M, et al. Accuracy of FibroScan controlled attenuation parameter and liver stiffness measurement in assessing steatosis and fibrosis in patients with nonalcoholic fatty liver disease. Gastroenterology 2019;156:1642-6101. Duc MS, Michael R, Darian Graff ML, et al. Vibration-controlled transient elastography to assess fibrosis and steatosis in patients with nonalcoholic fatty liver disease. Clin Gastroenterol Hepatol 2019;17:156-163. Note: 1. Fibroscan cannot reliably identify earlier stages of fibrosis (ie distinguish F0 from F1 and F2) and thus a histologic stage cannot be predicted from the Fibroscan reading. 2. Assessing the likelihood of advanced fibrosis in patients with indeterminate liver stiffness measurement (LSM) by Fibroscan (e.g., 8-15 kPa) can be improved by also calculating the FIB4 score (Carson et al. Hepatology Communications 2019;3:1525-2002) or NAFLD Fibrosis score (Aguila et al. Clinical Gastroenterology and Hepatology 2019;17:0344-4050. from routine clinical data. 3. Liver stiffness can be increased by factors other than fibrosis including passive congestion, infiltrative processes, active alcoholism, biliary obstruction and marked inflammation. The interpretation of the Fibroscan result provided above may not have taken such clinical factors into account. Disease etiology also influences [...] CAP estimates of steatosis: normal <200 dB/m mild 200 to 250 dB/m moderate 250-290 dB/m substantial > 290 dB/m (Note that Fibroscan is not a quantitative measure of liver fat.) These criteria are estimates and may change as additional supporting data becomes available. [email or web address]://www.[email or web address].[email or web address]/jqd-lqzdkmze-kmrosjtmab Moris Leon MD PROCEDURE/ MINOR SURGICAL ORDERABLES documented in this encounter Visit Diagnoses Diagnosis Nonalcoholic steatohepatitis (VITALE)- Primary Other chronic nonalcoholic liver disease documented in this encounter Care Teams Bite Block Maker Relationship Specialty Start Date End Date Montana Lion MD [address] [place] [address] PCP - General 11/20/15 documented as of this encounter
--- OUTSIDE RECORDS SUMMARY | 2024-08-03 20:30 | XMS_ITS | Encounter Summary ---
Author Organization [facility] Address [address] [address] Care Team Providers Care Member Of Technical Staff Name Role Phone Montana Lion MD Primary Care Provider [phone] Reason for Referral * Consultation (Routine) - Closed Specialty Diagnoses / Procedures Referred By Traci aguilar Referred To Contact Internal Medicine Diagnoses Nonalcoholic steatohepatitis (RENTERIA) Moris Leon MD [address] [place] [address] Joseph Carolina III, MD [address] [place] [address] Referral ID Status Reason Start Date Expiration Date V isits Requested Visits Authorized [id number] Closed Specialty Services Required 06/20/2022 06/20/2023 1 1 TICKET CLERK Reason for Visit * Reason Comments Renteria Stage 2 in 2020 Encounter Details Date Type Department Care Team (Latest Contact Info) Description 06/20/2022 8:00 AM TOLL TICKET CLERK Office Visit [facility] [address] [place] [address] Moris Gilmore MD [address] [place] [address] Nonalcoholic steatohepatitis (RENTERIA) (Primary Dx); Class 3 severe obesity with serious comorbidity and body mass index (BMI) of 40.0 to 44.9 in adult, unspecified obesity type (HCC) Social History Tobacco Use Types Packs/Day [...] Sign Reading Time Taken Comments Blood Pressure 176/80 06/20/2022 8:15 AM TOLL TICKET CLERK Pulse 80 06/20/2022 8:12 AM TOLL TICKET CLERK Temperature 37 ??C (98.6 ??F) 06/20/2022 8:12 AM TOLL TICKET CLERK Respiratory Rate 18 06/20/2022 8:12 AM TOLL TICKET CLERK Oxygen Saturation 97% 06/20/2022 8:12 AM TOLL TICKET CLERK Inhaled Oxygen Concentration - - Weight 107.5 kg (237 lb) 06/20/2022 8:12 AM TOLL TICKET CLERK Height 158.2 cm (5' 2.3 ) 06/20/2022 8:12 AM TOLL TICKET CLERK Body Mass Index 42.93 06/20/2022 8:12 AM TOLL TICKET CLERK documented in this encounter Patient Instructions * Patient Instructions* Moris Hawk MD - 06/20/2022 8:50 AM TOLL TICKET CLERK How to Contact Us Between Office Visits For emergencies, call 911. To make an appointment: Please or , Friday - Friday from 8:00 am - 5:00 pm. To request refills or leave a message for Dr. Hawk: Please use [facility] or call for the nurses in clinic. After hours urgent calls can be handled by the GI fellow geothermal production manager. Please call the hospital operatorat [phone] and identify yourself as a patient of Dr. Del Real. The water treatment operator will contact the physician geothermal production manager. You can generally expect a return call within 30 minutes. Test and laboratory results: Either send a message through [facility] [facility] [place] or contact the clinic nurses at the numbers above. Visit our website at [email or web address] for additional information about [employer] and an interactive health encyclopedia. Information about the [facility] [place], a qyc-cvu-nhnosj foundation supporting liver disease research at [facility] can be found at: www.[facility].org IMPORTANT 06/20/2022 Instructions from today's visit: 1. I'll refer you to Dr. Carolina in our Metabolic Clinic to see if you can get started on one of the new medications for weight loss and diabetes (Mounjaro or Ozympic). 2. Continue to stay active and focus on healthy eating. The following are my general recommendations for people with liver problems: 1. Stay active. Walking on a daily basis is a good start, but it is better to do a combination of aerobic exercise (the kind that gets you sweaty and out of breath) for at least one half hour per dayalternating with strength training (weights, yoga). Many people find that it helps to have a principal trainer to provide guidance if you can afford it. 2. Eat healthy foods. Don't diet because just using that word to describe what we eat means that we are depriving ourselves. Just focus on heathy eating in reasonable portion sizes and keep indiscretions to a minimum. Good advice on nutrition can be found on the website for the [employer] Healthy Eating Pyramid. Either search for that on the internet or go to: http://www.[facility].[employer].edu/nutritionsource/pdeg-dpmstn-obo-eat/pyramid/ Also, the Mediterranean Diet is a good choice to consider because it focuses on fruits, vegetables, whole grains, healthy oils (e.g. olive oil), and fish. Just search the internet for mediterranean diet or go to www.heart.org and search that website for mediterranean diet. In general keep the solid fats (butter, shortening/fried foods) to a minimum and use olive oil or canola oil when a little oil is needed. For the evening munchies, keep healthy snacks around such as apple slices or those delicious littlebite-sized tomatoes. 3. Avoid fast foods because they are typically very high in calories and salt. (Some panfilo-burgers have more fat than a whole stick of butter!). In general, watch out for restaurant meals because the portion sizes are way too large (often labeled as value ). Share meals in restaurants or split yourmeal into a take-home bag even before your start eating. 4. Don't drink sugar sweetened beverages (examples: Pepsi, Coke, Mtn Dew, Shira Tea, Sobe drinks,bottled lemonaid, bottled juice, KoolAid). Just a 12 oz can of soda contains almost 10 sugar cubes of sugar. Sweet teas are the same. Your liver converts that sugar into fat and that fat in the livercan cause liver damage. 5. Be sure to discuss with Dr. Hawk if you can have an occasional alcoholic drink. Occasional means 1-2 per week at most. If you have a history of alcohol dependence or abuse, you should not drink any alcohol. 6. Tylenol (acetaminophen) is okay to take for pain, but you should limit your dose to no more [id number] mg daily. This means that you should take no more than 4 tablets per day (500 mg acetaminopheneach). Remember that acetaminophen is in other medications (eg, Percocet, Vicodin, Mucinex) and the amountthat you get from these medications needs to be included in the daily total. 7. Statin drugs for treating an elevated cholesterol level are generally safe for people with fatty liver disease, despite the warnings in TV ads about using one of these medications when you have liver disease. If one is started, it is worthwhile to check liver enzymes a few times over the first6 months to be certain. As with any medication, if you have any new symptoms after starting a medication, report it immediately to your doctor. TICKET CLERK documented in this encounter Progress Notes * Moris Hawk MD - 06/20/2022 8:21 AM CST I saw Ms. Briseno in Liver Clinic at the [facility] today for a scheduled visit in followup for Chief Complaint Patient presents with ??? Renteria Stage 2 in 2020 Patient Active Problem List: Iron deficiency Nonalcoholic steatohepatitis (RENTERIA) Oncdk-0-nrjqvtviali deficiency (CMS/HCC) Obesity Type 2 diabetes mellitus (CMS/HCC) Hypertension Osteoarthritis Family history of colon cancer Heartburn Hypercholesterolemia Interim history: Retired in December. Spends time doing cross-stitch, trying to walk a bit more. She reports that her level of energy is good. For exercise she has been walking. Current impediments to regular exercise she reports no issues. She notes no right upper quadrant abdominal pain. Fast food consumption: rare, less after alf. Sugar sweetened beverage consumption: none. Current Outpatient Medications Medication Sig ??? aspirin EC (ECOTRIN) 81 MG tablet Take 81 mg by mouth once daily ??? atorvastatin (Lipitor) 80 MG tablet Take 1 (one) tablet by mouth once daily ??? Coenzyme Q10 (COQ10) 100 MG Take by mouth once daily ??? cyanocobalamin (VITAMIN B-12) 500 MCG tablet Take 500 mcg by mouth once daily ??? ibuprofen (Motrin) 200 MG tablet Take by mouth every 6 hours as needed ??? IRON PO Take 1 tablet by mouth once daily ??? Januvia 25 MG tablet Take 1 (one) tablet by mouth once daily ??? losartan (COZAAR) 25 MG tablet Take 100 mg by mouth once daily ??? Magnesium 400 MG Take by mouth at bedtime ??? metFORMIN (Glucophage) 1000 MG tablet ??? multivitamins (ONE A DAY) capsule Take 1 capsule by mouth ??? omeprazole (PRILOSEC) 20 MG capsule Take 20 mg by mouth daily before breakfast ??? vitamin D3 (CHOLECACIFEROL) 5000 UNITS Take by mouth once daily No current facility-administered medications for this visit. I have reviewed and confirmed with Ms. Briseno her current medications, allergies, and interim social history and family history and I have updated and corrected these sections of her electronic health record based on my discussions with her and/or her family members present at her visit today. She describes her current alcohol consumption as none. 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 Lives with . , 3 sons, 6 grandchildren, liver nearby. Review of systems: Chest pain: none. Shortness of breath: none. Dyspnea on exertion: none. Snoring at night: none. Nausea and vomiting: none.. Reflux or GERD symptoms: controlled by PPI. Constipation or diarrhea: lots of diarrhea, no meds. Has difficulty staying asleep. On exam today, she appeared obese, alert and anicteric. I reviewed today's vital signs and discussed weight changes since the last visit with Ms. Briseno. Vitals: 06/20/22 0812 06/20/22 0815 BP: (!) 188/85 176/80 Pulse: 80 Resp: 18 Temp: 98.6 ??F (37 ??C) SpO2: 97% Weight: 237 lb (107.5 kg) Height: 5' 2.3 (1.582 m) Body mass index is 42.93 kg/m??. Wt Readings from Last 3 Encounters: 06/20/22 237 lb (107.5 kg) 07/03/21 237 lb (107.5 kg) 05/07/21 239 lb (108.4 kg) Affect good. Seen alone. Skin: no spider angiomata. Lungs were clear to auscultation bilaterally. Heart sounds were regular rate and rhythm. There were no murmurs. Abdomen was obese, soft and nontender. Liver edge palpable: no. Spleen palpable: no. Ascites: none. Hernias: none. Pretibial edema: none. Relevant labs and imaging: Recent Labs Component Name 04/20/20 1022 11/04/18 1515 11/06/17 1030 11/06/16 0955 09/12/14 0900 TBIL 0.7 0.7 - - - ALKPHOS 94 83 77 63 83 ALT 50* 68* 64* 65* 40* AST 41* 45* 64* 52* 24 ALBUMIN 4.1 4.4 - - - SODIUM 140 140 - - - POTASSIUM 4.9 4.5 - - - CO2 25 25 24 24 24 CREATININE 0.76 0.82 0.81 0.75 0.81 BUN 15 16 15 17 17 HGB 12.9 12.4 13.2 12.7 11.6 WBC 8.2 8.8 8.5 7.7 8.2 PLTCOUNT 310 304 - - - INR - - 1.0 1.0 1.0 02/12/22 ALT 57, AST 64, AP 74, t bili 0.7, alb 4.1, 07/03/21 liver biopsy: RENTERIA, stage 2 07/03/21 colonoscopy: right hemicolectomy, tattooed area in sigmoid colon, no adenomas 06/20/22 Fibroscan CAP 333, LSM 12.4 kPa Assessment and Plan: 1. RENTERIA with early fibrosis in the setting of obesity, T2DM, HTN, hypercholesterolemia and also alpha-1 antitrypsin MZ phenotype 1. Fibroscan liver stiffness still elevated. Worrisome for prognosis over the next 5-10 years. Repeat Fibroscan with her visit next year. 2. With her obesity complicated by T2DM and significant liver disease, I'd like her to be seen in our Metabolic clinic to start tirzepatide or semaglutide. I discussed this option with her as well asdrug side effects (mainly nausea and vomiting) and she is agreeable. 3. Continue to walk as much as possible. 4. Focus on healthy eating. 5. Specific recommendations were provided regarding diet and exercise including the avoidance of sugar sweetened beverages. 6. Labwork was obtained today as part of her participation in our multicenter study of patients with fatty liver disease or cryptogenic cirrhosis. A copy of the results will be sent to her so that she can share them with her other providers. 2. Hx of iron deficiency 1. Negative EGD in 2014 and colonoscopy in 2020. 2. Transferrin sat increased to 16% last year 3. Continues to take oral supplement bid. 3. FH of colon cancer 1. Repeat colonoscopy in 2025. An appointment was scheduled for her to see me in followup in one year at the [facility]. Letter: JERMAINE Virgen Coding comment: this visit required 27 minutes, of which >50% was spent directly counseling the patient and/or family member(s) on their diagnosis, prognosis, and treatment options as outlined in the assessment and plan above as well as the written instructions in the after visit summary provided to the patient. Orders Placed This Encounter ??? Ref to Metabolic Clinic - Dr. Carolina - [facility] Coding Rationale New or est? Established Patient Highest problem complexity: 2 or more stable chronic illnesses Highest level of risk: Moderate Suggested code: [id number] TICKET CLERK documented in this encounter Plan of Treatment Upcoming Encounters Date Type Department Care Team (Late st Contact Info) Description 05/02/2025 11:30 AM CDT Procedure visit [facility] - [address], [place] [address] 05/02/2025 12:30 PM CDT Office Visit [facility] - GI [address] [place] [address], [place] [address] MalathiMoris Hawk MD [address] [place] [address] [place] [address] Scheduled Referrals Name Type Priority Associated Diagnoses Orde r Schedule Ref to Metabolic Clinic - Dr. Carolina - [facility] Outpatient Referral Routine Nonalcoholic steatohepatitis (RENTERIA) Ordered: 06/20/2022 documented as of this encounter Goals Goal [...] (RENTERIA)- Primary Other chronic nonalcoholic liver disease Class 3 severe obesity with serious comorbidity and body mass index (BMI) of 40.0 to 44.9 in adult, unspecified obesity type (HCC) documented in this encounter Care Teams Member Of Technical Staff Relationship Specialty Start Date End Date Montana Lion MD [address] [place] [address] PCP - General 11/20/15 documented as of this encounter
--- OUTSIDE RECORDS SUMMARY | 2024-08-03 20:30 | XMS_ITS | Encounter Summary ---
Author Organization [facility] Health Address [address] [facility] [place] [address] Care Team Providers Care Chronometer Tester Name Role Phone Montana Lion MD Primary Care Provider [phone] Encounter Details Date Type Department Care Team (Latest Contact Info) Description 05/12/2024 Travel Social History Tobacco Use Types Packs/Day Years [...] Procedure visit [facility] - [facility] [address] [place] [phone] 05/02/2025 12:30 PM CDT Office Visit [facility] - GI [address] [place] [phone] Moris Leon MD [address] [place] [address] [place] [address] documented as of this encounter Goals Goal [...] on filedocumented in this encounter Care Teams Chronometer Tester Relationship Specialty Start Date End Date Montana Lion MD [address] [place] [address] PCP - General 11/20/15 documented as of this encounter
--- OUTSIDE RECORDS SUMMARY | 2024-08-03 20:30 | XMS_ITS | Encounter Summary ---
Author Organization [facility] Health Address [address] [facility] [place] [address] Care Team Providers Care Director Of Strategic Partnerships Name Role Phone Montana Lion MD Primary Care Provider [phone] Reason for Visit * Reason Comments Renteria Stage 2 in 2020 * Consult, Test & Treat (Routine) - Closed Specialty Diagnoses / Procedures Referred By Traci aguilar Referred To Contact Gastroenterology Diagnoses Nonalcoholic steatohepatitis (RENTERIA) Family history of malignant neoplasm of digestive organs Procedures NC OFFICE/OUTPATIENT ESTABLISHED HIGH MDM 40-54 MIN Montana Lion MD [address] [place] [address] Moris Leon MD [address] DIV [place] [address] Referral ID Status Reason Start Date Expiration Date Visits Re quested Visits Authorized [id number] Closed 05/22/2023 05/21/2024 1 1 Encounter Details Date Type Department Care Team (Latest Contact Info) Description 05/22/2023 8:00 AM CDT Office Visit [facility] - GI [address] [place] [address] Moris Tovar MD [address] [place] [address] Nonalcoholic steatohepatitis (RENTERIA) (Primary Dx) Social History Tobacco Use Types Packs/Day Years [...] Sign Reading Time Taken Comments Blood Pressure 171/76 05/22/2023 8:30 AM CDT Pulse 61 05/22/2023 8:30 AM CDT Temperature 36 ??C (96.8 ??F) 05/22/2023 8:30 AM CDT Respiratory Rate 18 05/22/2023 8:30 AM CDT Oxygen Saturation - - Inhaled Oxygen Concentration - - Weight 102.8 kg (226 lb 9.6 oz) 05/22/2023 8:30 AM CDT Height 154.9 cm (5' 1 ) 05/22/2023 8:30 AM CDT Body Mass Index 42.82 05/22/2023 8:30 AM CDT documented in this encounter Patient Instructions * Patient Instructions* Moris Leon MD - 05/22/2023 8:57 AM CDT How to Contact Us Between Office Visits For emergencies, call 911. To make an appointment: Please or , Friday - Friday from 8:00 am - 5:00 pm. To request refills or leave a message for Dr. Hawk: Please use Tal[employer] or call for the nurses in clinic. After hours urgent calls can be handled by the GI fellow combat control. Please call the hospital operatorat [phone] and identify yourself as a patient of Dr. Hawk'sana. The ampoule washing machine operator will contact the physician combat control. You can generally expect a return call within 30 minutes. Test and laboratory results: Either send a message through Talend or contact the clinic nurses at the numbers above. Visit our website at [email or web address] for additional information about [employer] and an interactive health encyclopedia. Information about the [facility], a prv-zvi-advnfy foundation supporting liver disease research at [facility] can be found at: www.friendsoftheslu.org IMPORTANT 05/22/2023 Instructions from today's visit: 1. Continue to work out regularly and try to get out walking and staying active. The following are my general recommendations for [...] find that it helps to have a sales trainer to provide guidance if you can afford it. 2. Eat healthy foods. Don't diet because just using that word to describe what we eat means that we are depriving ourselves. Just focus on heathy eating in reasonable portion sizes and keep indiscretions to a minimum. Good advice on nutrition can be found on the website for the [employer] Healthy Eating Pyramid. Either search for that on the internet or go to: http://www.[facility].[employer].edu/nutritionsource/dtco-wbrzcu-bnu-eat/pyramid/ Also, the Mediterranean Diet is a good [...] should limit your dose to no more [id number] mg daily. This means that you should [...] in this encounter Progress Notes * Moris Leon MD - 05/22/2023 8:33 AM CDT I saw Ms. Briseno in Liver Clinic at the [facility] today for a scheduled visit in followup for Chief Complaint Patient presents with ??? Renteria Stage 2 in 2020 She is a 67 year old yo female with: Patient Active Problem List: Iron deficiency Nonalcoholic steatohepatitis (RENTERIA) Kyzfe-7-ljiuvowvbxj deficiency (CMS/HCC) Obesity Type 2 diabetes mellitus (CMS/HCC) Hypertension Osteoarthritis Family history of colon cancer Heartburn Hypercholesterolemia Interim history: No new problems. She reports that her level of energy is good. For exercise she has been going to gym 3 days a week for an exercise program--aerobic and weights. Does yard work. Current impediments to regular exercise she reports include some back pain. She notes occasional achy right upper quadrant abdominal pain. Fast food consumption: avoids in general, a lot more home cooking since long term. Sugar sweetened beverage consumption: none. Current Outpatient Medications Medication Sig ??? amLODIPine (Norvasc) 5 MG tablet Take 1 (one) tablet by mouth once daily (Patient not taking: Reported on 05/22/2023) ??? aspirin EC (ECOTRIN) 81 MG tablet Take 1 (one) tablet by mouth once daily ??? atorvastatin (Lipitor) 80 MG tablet Take 1 (one) tablet by mouth once daily ??? calcium 500 mg tablet Take 1 (one) tablet by mouth once daily ??? Cetirizine HCl (ZYRTEC ALLERGY PO) Take by mouth once daily ??? Coenzyme Q10 (COQ10) 100 MG Take by mouth once daily ??? cyanocobalamin (VITAMIN B-12) 500 MCG tablet Take 1 (one) tablet by mouth once daily ??? fluticasone propionate (Flonase) 50 MCG/ACT nasal spray INSTILL 1-2 SPRAYS INTO EACH NOSTRIL TWICE DAILY. AIM BACK, UP AND OUT ??? ibuprofen (Motrin) 200 MG tablet Take by mouth every 6 hours as needed ??? IRON PO Take 1 tablet by mouth once daily ??? Januvia 25 MG tablet Take 1 (one) tablet by mouth once daily ??? losartan (Cozaar) 100 MG tablet ??? Magnesium 400 MG Take by mouth at bedtime ??? metFORMIN (Glucophage) 1000 MG tablet ??? multivitamins (ONE A DAY) capsule Take 1 (one) capsule by mouth ??? nebivolol (Bystolic) 5 MG tablet Take 1 (one) tablet by mouth once daily ??? omeprazole (PRILOSEC) 20 MG capsule Take 1 (one) capsule by mouth daily before breakfast ??? 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 Does [employer]. Lives with . , 3 sons, 6 grandchildren, they live nearby. Review of systems: Chest pain: none. Shortness of breath: none. Dyspnea on exertion: stairs. Snoring at night: some, no CPAP, no sleep study but it's been recommended. Nausea and vomiting: none. Reflux or GERD symptoms: none on PPI. Constipation or diarrhea: none. On exam today, she appeared obese, alert and anicteric. I reviewed today's vital signs and discussed weight changes since the last visit with Ms. Briseno. Vitals: 05/22/23 0830 BP: 171/76 Pulse: 61 Resp: 18 Temp: 96.8 ??F (36 ??C) Weight: 102.8 kg (226 lb 9.6 oz) Height: 1.549 m (5' 1 ) Body mass index is 42.82 kg/m??. Wt Readings from Last 3 Encounters: 05/22/23 102.8 kg (226 lb 9.6 oz) 06/20/22 107.5 kg (237 lb) 07/03/21 107.5 kg (237 lb) Affect good. Seen alone. Skin: no spider angiomata. Lungs were clear to auscultation bilaterally. Heart sounds were regular rate and rhythm. There were no murmurs. Abdomen was obese, soft and nontender. Liver edge palpable: no. Spleen palpable: no. Ascites: none. Hernias: none. Pretibial edema: none. Relevant labs and imaging: No recent labs available. 05/22/23 Fibroscan CAP 268, LSM 8.1 kPa Assessment and Plan: 1. RENTERIA with early fibrosis in the setting of obesity, T2DM, HTN, hypercholesterolemia and also alpha-1 antitrypsin MZ phenotype 1. Weight is down--this is good. 2. Fibroscan is improved--less liver fat and the liver stiffness has improved. 3. Continue to exercise regularly and focus on healthy eating. 4. I have no problem with continued statin use. There is no medical evidence to indicate that preexisting liver disease predisposes to statin hepatotoxicity. 5. Specific recommendations were provided regarding diet and exercise including the avoidance of sugar sweetened beverages. 6. Labwork was obtained today as part of her participation in our multicenter study of patients with fatty liver disease or cryptogenic cirrhosis. A copy of the results will be sent to her so that she can share them with her other providers. This study will likely end in 2023. 2. Hx of iron deficiency 1. Negative EGD in 2014 and colonoscopy in 2020. 2. Transferrin sat increased to 16% last year 3. Continues to take oral supplement bid. 3. FH of colon cancer 1. Repeat colonoscopy in 2025. An appointment was scheduled for her to see me in followup in one year at the [facility]. Letter: JERMAINE Virgen Coding comment: this visit required 23 minutes, of which >50% was spent directly counseling the patient and/or family member(s) on their diagnosis, prognosis, and treatment options as outlined in the assessment and plan above as well as the written instructions in the after visit summary provided to the patient. No orders of the defined types were placed in this encounter. true Coding Rationale New or est? Established Patient Highest problem complexity: 2 or more stable chronic illnesses Highest level of risk: Moderate Suggested code: 46412 documented in this encounter Plan of Treatment Upcoming Encounters Date Type Department Care Team (Late st Contact Info) Description 05/02/2025 11:30 AM CDT Procedure visit [facility] - GI [address] [place] [phone] 05/02/2025 12:30 PM CDT Office Visit [facility] - GI [address] [place] [phone] Moris Leon MD [address] [place] [address] [place] [address] documented as of this encounter Goals Goal [...] (RENTERIA)- Primary Other chronic nonalcoholic liver disease documented in this encounter Care Teams Director Of Strategic Partnerships Relationship Specialty Start Date End Date Montana Lion MD [address] [place] [address] PCP - General 11/20/15 documented as of this encounter
--- OUTSIDE RECORDS SUMMARY | 2024-08-03 20:30 | XMS_ITS | Encounter Summary ---
Author Organization [facility] Health Address [address] [facility] [place] [address] Care Team Providers Care Paramedical Aide Name Role Phone Montana Lion MD Primary Care Provider [phone] Reason for Referral * Radiology Services (Routine) - Closed Specialty Diagnoses / Procedures Referred By Traci t Referred To Contact Gastroenterology Diagnoses Nonalcoholic steatohepatitis (VITALE) Procedures PROC FIBROSCAN Malathi-Moris Hawk MD [address] [place] [address] [place] [address] [facility] [address] [place] [phone] Referral ID Status Reason Start Date Expiration Date Visits Re quested Visits Authorized [id number] Closed 05/01/2020 05/01/2021 1 1 Encounter Details Date Type Department Care Team (Late st Contact Info) Description 05/01/2020 Orders Only [facility] - [address] [phone] Ashley Austin, RN Nonalcoholic steatohepatitis (VITALE) Social History Tobacco Use [...] Description 05/02/2025 11:30 AM CDT Procedure visit [facility] - [address], [place] [phone] 05/02/2025 12:30 PM CDT Office Visit [facility] - [address], [place] [phone] Moris Leon MD [address] [place] [address] [place] [address] documented as of this encounter Goals Goal [...] last dose documented as of this encounter Results * PROC FIBROSCAN (05/01/2020 [...] patients with nonalcoholic fatty liver disease. Gastroenterology 2019;156:8750-2183. Duc MS, Michael R, Van Dajuan ML, et al. Vibration-controlled transient elastography to [...] improved by also calculating the FIB4 score (Cedricyduke et al. Hep[employer] 2019;3:7158-4858) or NAFLD Fibrosis score (Aguila et al. Clinical Gastroenterology and Hepatology 2019;17:6245-8996. from routine clinical data. 3. Liver stiffness [...] change as additional supporting data becomes available. [email or web address] Moris Leon MD PROCEDURE/ MINOR SURGICAL ORDERABLES documented in this encounter Visit Diagnoses Diagnosis Nonalcoholic steatohepatitis (VITALE)- Primary Other chronic nonalcoholic liver disease Nonalcoholic steatohepatitis (VITALE)- Primary Other chronic nonalcoholic liver disease documented in this encounter Care Teams Paramedical Aide Relationship Specialty Start Date End Date Montana Lion MD [address] [place] [address] PCP - General 11/20/15 documented as of this encounter
--- OUTSIDE RECORDS SUMMARY | 2024-08-03 20:30 | XMS_ITS | Encounter Summary ---
Author Organization [facility] Health Address [address] [place] [address] Care Team Providers Care Director Digital Advertising Name Role Phone Montana Lion MD Primary Care Provider [phone] Encounter Details Date Type Department Care Team (Latest Contact Info) Description 11/11/2016 Hospital Outpatient Visit [facility] G[facility] and Hepatology [address] [place] [address] Rita Cota PAGilberto [address] [place] [address] [address], [place] [phone] Discharge Disposition: Home or Self Care Social [...] 05/02/2025 11:30 AM CDT Procedure visit [facility] - [address] [facility], [place] [phone] 05/02/2025 12:30 PM CDT Office Visit [facility] - GI [address] [facility], [place] [address] Moris Leon MD [address] [place] [address] [place] [address] documented as of this encounter Visit Diagnoses Not on filedocumented in this encounter Care Teams Director Digital Advertising Relationship Specialty Start Date End Date Montana Lion MD [address] [place] [address] PCP - General 11/20/15 documented as of this encounter
--- OUTSIDE RECORDS SUMMARY | 2024-08-03 20:30 | XMS_ITS | Encounter Summary ---
Author Organization [facility] Health Address [address] [facility] [facility] [address] [place] [address] Care Team Providers Care Stamping Die Maker Bench Name Role Phone Montana Lion MD Primary Care Provider [phone] Reason for Visit * Reason Comments Renteria Stage 2 in 2014 Encounter Details Date Type Department Care Team (Latest Contact Info) Description 11/17/2017 11:00 AM CDT Office Visit [facility] - GI [address] [place] [address], [place] [phone] Moris Tovar MD [address] [place] [address] [place] [address] Nonalcoholic steatohepatitis (RENTERIA) (Primary Dx) Social History Tobacco Use Types Packs/Day Years Used Date Smoking Tobacco: Never Smokeless Tobacco: Never Tobacco Cessation:Counseling Given: No Alcohol Use Standard Drinks/Week Comments No 0 (1 standard drink = 0.6 oz pur e alcohol) Sex and Gender Information Value Date Recorded Sex Assigned at Female 05/15/2021 10:17 AM CDT Gender Identity Female 05/15/2021 10:17 AM CDT Sexual Orientation Straight 05/15/2021 10 :17 AM CDT documented as of this encounter Last Filed Vital Signs Vital Sign Reading Time Taken Comments Blood Pressure 175/72 11/17/2017 11:27 AM CDT Pulse 79 11/17/2017 11:27 AM CDT Temperature - - Respiratory Rate 18 11/17/2017 11:27 AM CDT Oxygen Saturation 100% 11/17/2017 11:27 AM CDT Inhaled Oxygen Concentration - - Weight 108.9 kg (240 lb) 11/17/2017 11:27 AM CDT Height 157.5 cm (5' 2 ) 11/17/2017 11:27 AM CDT Body Mass Index 43.9 11/17/2017 11:27 AM CDT documented in this encounter Patient Instructions * Patient Instructions* Moris Hawk MD - 11/17/2017 12:42 PM CDT Thank you for entrusting your healthcare to the physicians and other specialists at the [facility] G[facility]ology [facility]ology clinic today. Following your visit, you may receive a Press Ganey survey via email or U.S. Mail. We encourage youto respond to this confidential survey about your care. Your feedback helps us to provide quality service at every visit. Thank you for your help in making our practice meet higher expectations. Contact information: To reach the clinic please call (8 am to noon, 1 to 4:30 pm weekdays). Press 1 to make schedule or cancel an appointment Press 2 for pharmacy refills Press 3 to speak with a nurse regarding a change in your condition. Many times your nurse may be busy seeing patients in clinic. In order to meet your needs timely we have implemented a nurse triage line to take your calls. We are closed from 12-1 for lunch After hours please call (hospital main number), ask the filteration operator to call the gastroenterology fellow munitions handler supervisor. Emergency; call 611 or go to your closest emergency room. For more information, below are some useful websites: More information about us and our services can be found on our websites at www.[facility]/c16182.xml and www.[facility].com/en-us/ourservices/medicalservices/pages/digestivediseasesdis orders.aspx Hospital information can be found at: www.[email or web address].com Information about other [facility] providers can be found at: www.[email or web address].[email or web address] Information about the [facility] the [facility] [place], a qyc-iel-nhkpac foundation supporting liver disease research by your doctors and researchers at [facility], can be found at: www.friendsoftheslulc.org You can sign up to receive emails with updates on current GI topics called the [facility] [employer]. These come out twice a week from one of our professional organizations, the [employer]. Goto this website to sign up: [email or web address].[employer].Gone!/dhsb IMPORTANT The following information and instructions are from your visit today: 1. We will get a Fibroscan to assess if you are building up more scar tissue in the liver. We'll dothat this month and again with your next visit in a year. 2. Ask Dr. Lion to check your iron level with any future blood test. 3. Ask Dr. Lion about the need for a sleep study to evaluate for sleep apnea. The following are my general recommendations for [...] be found on the website for the [employer] Eating Pyramid. Either search for that on the internet or go to: http://www.[facility].[place].edu/nutritionsource/hieo-hqfaet-gwb-eat/pyramid/ 3. Avoid fast foods and sugar sweetened [...] should limit your dose to no more orua2179 mg daily. This means that you should take no more than 4 Extra Strength or 6 regular strength tablets per day. Remember that acetaminophen is in other medications (eg, Percocet, Darvocet, Vicodin) and the amount that you get from these medications needs to [...] Progress Notes * Moris Hawk MD - 11/17/2017 12:19 PM CDT I saw Ms. Briseno in Liver [facility] at [facility] today for follow up visit regarding: Chief Complaint Patient presents with ??? Renteria Stage 2 in 2015 Patient Active Problem List Diagnosis ??? Iron deficiency ??? Nonalcoholic steatohepatitis (RENTERIA) ??? Okjjd-1-rzkyfwifyzw deficiency ??? Obesity ??? Type 2 diabetes mellitus ??? Hypertension ??? Osteoarthritis ??? Family history of colon cancer ??? Heartburn ??? Hypercholesterolemia Interim history: No new problems. She reports that her level of energy is okay. For exercise she has been walking daily. Using a fit bit for the past year, goal is 8-9k/day. No other exercise. She notes no right upper quadrant abdominal pain. Fast food consumption: some recently, dealing with mom's health, now on hospice. Sugar sweetened beverage consumption: none. Current Outpatient Prescriptions Medication Sig ??? atorvastatin (LIPITOR) 10 MG tablet Take 10 mg by mouth at bedtime ??? Coenzyme Q10 (COQ10) 100 MG Take by mouth once daily ??? cyanocobalamin (VITAMIN B-12) 500 MCG tablet Take 500 mcg by mouth once daily ??? IRON PO Take 1 tablet by mouth once daily ??? losartan (COZAAR) 25 MG tablet Take 25 mg by mouth once daily ??? multivitamins (ONE A DAY) capsule Take 1 capsule by mouth ??? omeprazole (PRILOSEC) 20 MG capsule Take 20 mg by mouth daily before breakfast ??? KOMBIGLYZE XR 2.5-1000 MG tablet Take 1 tablet by mouth 2 times daily ??? vitamin D3 (CHOLECACIFEROL) 5000 UNITS Take by mouth once daily No current facility-administered medications for this visit. I have reviewed with Ms. Briseno her Medical, Social and Family history and I have updated and corrected these sections of her [facility] electronic health record based on my discussions with her and/orher family members present at her visit today. She describes her current alcohol consumption as none. 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 , 3 sons, 6 grandchildren. Review of systems: Chest pain: none. Shortness of breath: none. Dyspnea on exertion: lots of stairs. Snoring at night: yes, not using CPAP. No sleep study. Nausea and vomiting: none. Reflux or GERD symptoms: controlled by PPI Constipation or diarrhea: having up to 6 BMs daily. Avoids milk. Upper or lower GI bleeding: none. Pruritus: none or rare. On exam today, she appeared obese, alert and anicteric. I reviewed today's vital signs with the patient. BP 175/72 Pulse 79 Resp 18 Ht 1.575 m (5' 2 ) Wt 108.9 kg (240 lb) SpO2 100% BMI 43.9 kg/m2 Wt Readings from Last 3 Encounters: 11/17/17 108.9 kg (240 lb) 11/11/16 104.8 kg (231 lb) 11/20/15 104.4 kg (230 lb 1.6 oz) Affect good. Seen alone. Skin: no spider angiomata. Lungs were clear to auscultation bilaterally. Heart sounds were regular rate and rhythm. There were no murmurs. Abdomen was obese, soft and nontender. Liver edge palpable: no. Spleen palpable: no. Ascites: none. Hernias: none. Pretibial edema: none. Relevant test results: 11/06/17 ALT 64, AST 64, AP 77, t bili 0.9, alb 4.7, plts 324, INR 1.0 Assessment and Plan: 1. 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 LFTs still up a bit. Weight back up-not good. 2. Will check Fibroscan this visit and again in a year to help determine the need for a repeat liver biopsy. 3. Continue to walk as much as possible. 4. Focus on healthy eating. 2. Hx of iron deficiency 1. Negative prior EGD and colonoscopy. 2. No recent iron level--check with next labs. 3. Snoring 1. A sleep study might be considered. An appointment was scheduled for her to see me in followup in one year. Address letter to: [place] [address] Orders Placed This Encounter ??? PROC FIBROSCAN ??? PROC FIBROSCAN documented in this encounter Plan of Treatment Upcoming Encounters Date Type Department Care Team (Late st Contact Info) Description 05/02/2025 11:30 AM CDT Procedure visit [facility] - [address] [phone] 05/02/2025 12:30 PM CDT Office Visit [facility] - [address] [phone] Moris Leon MD [address] [place] [address] [place] [address] Scheduled Orders Name Type Priority Associated Diagnoses Orde r Schedule PROC FIBROSCAN Procedures Routine Nonalcoholic steatohepatitis (RENTERIA) Expected: 12/17/2017 (Approximate), Expires: 11/17/2018 documented as of this encounter Results * [place] LIVER ELASTOGRAPHY (11/28/2018 3:29 PM CDT) Narrative Moris Hawk MD - 11/28/2018 3:29 PM CDT Moris Hawk MD ? 11/28/2018 ??3:29 PM Diagnosis: RENTERIA RN verified patient not , no implanted [...] Cholestatic liver diseases: >10 and >17.9 kPa NAFLD/RENTERIA: >10 and >14 kPa CAP estimates of steatosis: normal <200 dB/m maybe present 200 to 250 dB/m moderate 250-300 dB/m substantial > 300 dB/m (Note that Fibroscan is not a quantitative measure of liver fat and the risk of NAFLD progression is unrelated to the degree of steatosis.) These criteria are estimates and may change as additional supporting data becomes available. [email or web address] Moris Leon MD PROCEDURE/ MINOR SURGICAL ORDERABLES documented in this encounter Visit Diagnoses Diagnosis Nonalcoholic steatohepatitis (RENTERIA)- Primary Other chronic nonalcoholic liver disease Nonalcoholic steatohepatitis (RENTERIA) Other chronic nonalcoholic liver disease documented in this encounter Care Teams Stamping Die Maker Bench Relationship Specialty Start Date End Date Montana Lion MD [address] [place] [address] PCP - General 11/20/15 documented as of this encounter
--- OUTSIDE RECORDS SUMMARY | 2024-08-03 20:30 | XMS_ITS | Encounter Summary ---
Author Organization [facility] Health Address [address] [facility] [place] [address] Care Team Providers Care Retail Account Representative Name Role Phone Montana Lion MD Primary Care Provider [phone] Encounter Details Date Type Department Care Team (Late st Contact Info) Description 05/02/2021 Orders Only [facility] - GI [address] [place] [phone] Jayashree Badillo RN Nonalcoholic steatohepatitis (VITALE) Social History Tobacco [...] Description 05/02/2025 11:30 AM CDT Procedure visit [facility] - GI [address] [place] [phone] 05/02/2025 12:30 PM CDT Office Visit [facility] - GI [address] [place] [phone] Moris Leon MD [address] [place] [address] documented as of this encounter Goals Goal [...] disease documented in this encounter Care Teams Retail Account Representative Relationship Specialty Start Date End Date Montana Lion MD [address] [place] [address] PCP - General 11/20/15 documented as of this encounter
--- OUTSIDE RECORDS SUMMARY | 2024-08-03 20:30 | XMS_ITS | Encounter Summary ---
Author Organization [facility] Health Address [address] [facility] [place] [address] Care Team Providers Care Unix Systems Administrator Name Role Phone Montana Lion MD Primary Care Provider [phone] Encounter Details Date Type Department Care Team (Latest Contact Info) Description 04/29/2024 Travel Social History Tobacco Use Types Packs/Day [...] visit [facility] - GI [address] [place] [phone] 05/02/2025 12:30 PM CDT Office Visit [facility] - GI [address] [place] [phone] Moris Leon MD [address] [place] [address] [place] [address] documented as of this encounter Goals Goal [...] on filedocumented in this encounter Care Teams Unix Systems Administrator Relationship Specialty Start Date End Date Montana Lion MD [address] [place] [address] PCP - General 11/20/15 documented as of this encounter
--- OUTSIDE RECORDS SUMMARY | 2024-08-03 20:30 | XMS_ITS | Encounter Summary ---
Author Organization [facility] Health Address [address] [place] [address] Care Team Providers Care Bat Boy/Girl Name Role Phone Montana Lion MD Primary Care Provider [phone] Reason for Visit * Reason Onset Date Comments Post Op Call 07/04/2021 Encounter Details Date Type Department Care Team (Late st Contact Info) Description 07/04/2021 Patient Outreach [facility] [address] [place] [address] Ashley Rutledge, RN Post Op Call Social History Tobacco Use Types Packs/Day Years [...] AM CDT documented as of this encounter Miscellaneous Notes * Telephone Encounter - Ashley Rutledge, RN - 07/04/2021 10:49 AM DIRECTOR OF HOME CARE HOSPICE Patient states, I am fine and I was definitely happy with the care I received. CTOR OF HOME CARE HOSPICE documented in this encounter Plan of Treatment Upcoming Encounters Date Type Department Care Team (Late st Contact Info) Description 05/02/2025 11:30 AM CDT Procedure visit [facility] - GI [address] [facility], [place] [address] 05/02/2025 12:30 PM CDT Office Visit [facility] - GI [address] [facility], [place] [address] Moris Leon MD [address] [place] [address] [place] [address] documented as of this encounter Goals Goal [...] on filedocumented in this encounter Care Teams Bat Boy/Girl Relationship Specialty Start Date End Date Montana Lion MD [address] [place] [address] PCP - General 11/20/15 documented as of this encounter
--- OUTSIDE RECORDS SUMMARY | 2024-08-03 20:30 | XMS_ITS | Encounter Summary ---
Author Organization [facility] Health Address [address] [facility] [place] [address] Care Team Providers Care Asian Studies Program Chair Name Role Phone Montana Lion MD Primary Care Provider [phone] Encounter Details Date Type Department Care Team (Latest Contact Info) Description 11/20/2015 Hospital Outpatient Visit [facility] [address] [place] [address] Moris Tovar MD [address] [place] [address] [place] [address] Discharge Disposition: Home or Self Care Social History Tobacco Use Types Packs/Day Years Used Date Smoking Tobacco: Never Assessed Sex and Gender Information Value Date Recorded Sex Assigned at Female 05/15/2021 10:17 AM CDT Gender Identity Female 05/15/2021 10:17 AM CDT Sexual Orientation Straight 05/15/2021 10 :17 AM CDT documented as of this encounter Plan of Treatment Upcoming Encounters Date Type Department Care Team (Late st Contact Info) Description 05/02/2025 11:30 AM CDT Procedure visit [facility] - GI [address] [place] [phone] 05/02/2025 12:30 PM CDT Office Visit [facility] - GI [address] [place] [phone] Moris Leon MD [address] [place] [address] documented as of this encounter Visit Diagnoses Not on filedocumented in this encounter Care Teams Asian Studies Program Chair Relationship Specialty Start Date End Date Montana Lion MD [address] [place] [address] PCP - General 11/20/15 documented as of this encounter
--- OUTSIDE RECORDS SUMMARY | 2024-08-03 20:30 | XMS_ITS | Encounter Summary ---
Author Organization [facility] Health Address [address] [place] [address] Care Team Providers Care Tire Shop Manager Name Role Phone Montana Lion MD Primary Care Provider [phone] Encounter Details Date Type Department Care Team (Latest Contact Info) Description 05/07/2021 11:00 AM CDT Procedure visit [facility] - GI [address] [place] [address], [place] [address] Moris Holden MD [address] [place] [address] [place] [address] Nonalcoholic steatohepatitis (VITALE) Social History Tobacco Use [...] AM CDT documented as of this encounter Procedure Notes * Ashley Austin, RN - 05/07/2021 10:59 AM CDTAssociated Order(s): PROC FIBROSCAN Procedure(s): [place] LIVER ELASTOGRAPHY Pre-Procedure Diagnose(s): Nonalcoholic steatohepatitis (VITALE) Diagnosis: VITALE RN verified patient not , no implanted devices and NPO for prior 3 hours. Procedure explained and consent signed. Date of Exam: 05/07/2021 Liver Stiffness: (LSM, kPa) median: 10.3 IQR (interquartile range): 1.7 IQR/Median% (ideally < 30%): 17 CAP (controlled attenuation parameter): 381 Technical Difficulty: None Ordering Provider: Moris Hawk [...] patients with nonalcoholic fatty liver disease. Gastroenterology 2019;156:3176-9142. Duc MS, Michael R, Van Dajuan ML, [...] FIB4 score (Carson et al. Hepatology Communications 2019;3:2950-1486) or NAFLD Fibrosis score (Aguila et al. Clinical Gastroenterology and Hepatology 2019;17:0296-1940. from routine clinical data. 3. Liver stiffness [...] change as additional supporting data becomes available. http://www.[facility].com/qet-hbnwycpw-jxbdcbwiqt documented in this encounter Plan of Treatment Upcoming Encounters Date Type Department Care Team (Late st Contact Info) Description 05/02/2025 11:30 AM CDT Procedure visit [facility] - [address] [address] 05/02/2025 12:30 PM CDT Office Visit [facility] - [address] [address] Moris Leon MD [address] [place] [address] [place] [address] documented as of this encounter Goals Goal [...] Procedure Name Priority Date/Time Associated Diagnosis Comments [place] LIVER ELASTOGRAPHY Routine 05/07/2021 10:59 AM CDT Nonalcoholic steatohepatitis (VITALE) documented in this encounter Results * [place] LIVER ELASTOGRAPHY (05/07/2021 10:59 AM CDT) Narrative Moris Hawk MD - 05/07/2021 10:59 AM CDT Moris Hawk MD ? 05/07/2021 11:31 AM Diagnosis: VITALE RN verified patient not , no implanted devices and NPO for prior 3 hours. Procedure explained and consent signed. Date of Exam: 05/07/2021 Liver Stiffness: (LSM, kPa) median: ??10.3 IQR (interquartile range): ?? 1.7 IQR/Median% (ideally < 30%): ??17 CAP (controlled attenuation parameter): ??381 Technical Difficulty: None Ordering Provider: Moris Hawk [...] patients with nonalcoholic fatty liver disease. Gastroenterology 2019;156:8829-3764. Duc MS, Michael R, Van Natta ML, [...] FIB4 score (Cedricyduke et al. Hepatology Communications 2019;3:7386-8157) or NAFLD Fibrosis score (Aguila et al. Clinical Gastroenterology and Hepatology 2019;17:8528-8431. from routine clinical data. 3. Liver stiffness [...] change as additional supporting data becomes available. [email or web address] Moris Leon MD PROCEDURE/ MINOR SURGICAL ORDERABLES documented in this encounter Visit Diagnoses Diagnosis Nonalcoholic steatohepatitis (VITALE)- Primary Other chronic nonalcoholic liver disease documented in this encounter Care Teams Tire Shop Manager Relationship Specialty Start Date End Date Montana Lion MD [address] [place] [phone] PCP - General 11/20/15 documented as of this encounter
--- OUTSIDE RECORDS SUMMARY | 2024-08-03 20:30 | XMS_ITS | Encounter Summary ---
Author Organization [facility] Address [address] [place] [address] Care Team Providers Care Buckle And Button Maker Name Role Phone Montana Lion MD Primary Care Provider [phone] Reason for Referral * Radiology Services (Routine) - Closed Specialty Diagnoses / Procedures Referred By Traci t Referred To Contact Diagnoses Nonalcoholic steatohepatitis (RENTERIA) Procedures PROC FIBROSCAN Moris Leon MD [address] [place] [address] [address] [place] [address] Referral ID Status Reason Start Date Expiration Date Visits Re quested Visits Authorized [id number] Closed 05/01/2020 05/01/2021 1 1 Reason for Visit * Reason Comments Renteria Stage 2 in 2015 Encounter Details Date Type Department Care Team (Latest Contact Info) Description 05/01/2020 2:30 PM CDT Office Visit [facility] - GI [address] [place] [address], [place] [phone] Moris Tovar MD [address] [place] [address] [address] [place] [address] Nonalcoholic steatohepatitis (RENTERIA) (Primary Dx) Social History [...] Sign Reading Time Taken Comments Blood Pressure 146/77 05/01/2020 2:30 PM CDT Pulse 71 05/01/2020 2:30 PM CDT Temperature 36.4 ??C (97.6 ??F) 05/01/2020 2:30 PM CD T Respiratory Rate - - Oxygen Saturation 98% 05/01/2020 2:30 PM CDT Inhaled Oxygen Concentration - - Weight 107.6 kg (237 lb 3.2 oz) 05/01/2020 2:30 PM CDT Height 157.5 cm (5' 2 ) 05/01/2020 2:30 PM CDT Body Mass Index 43.38 05/01/2020 2:30 PM CDT documented in this encounter Patient Instructions * Patient Instructions* Moris Hawk MD - 05/01/2020 3:38 PM CDT Thank you for entrusting your healthcare to the physicians and other specialists at the [facility] Gastroenterology and Hepatology clinic today. Following [...] to noon, 1 to 4:30 pm weekdays). ?? Press 1 to make schedule or cancel an appointment ?? Press 2 for pharmacy refills ?? Press 3 to speak with a nurse regarding a change in your condition. ?? Many times your nurse may be busy seeing patients in clinic. In order to meet your needs timely we have implemented a nurse triage line to take your calls. ?? We are closed from 12-1 for lunch ?? After hours please call (hospital main number), ask the laundry operator finishing to call the gastroenterology fellow specification writer. ?? Emergency: call 911 or go to your closest emergency room. ?? We encourage you to use [employer] to send and receive messages and review your test results. Let us know if you need information on signing up for [employer]. More information about us and our services can be found on our websites at [email or web address] and [email or web address] Information about the [facility] [place], a cki-jcu-tfcsdm foundation supporting liver disease research by your doctors and researchers at [facility], can be found at: [email or web address] memorial hospitalslu.[email or web address] IMPORTANT 05/01/2020 The following information and instructions are from your visit today: 1. We'll repeat the Fibroscan next year, set up a liver biopsy if the stiffness is still elevated. The following are my general recommendations for [...] find that it helps to have a graduate assistant athletic trainer to provide guidance if you can afford it. 2. Eat healthy foods. Don't diet because just using that word to describe what we eat means that we are depriving ourselves. Just focus on heathy eating in reasonable portion sizes and keep indiscretions to a minimum. Good advice on nutrition can be found on the website for the [place] Healthy Eating Pyramid. Either search for that on the internet or go to: http://[email or web address]/nutritionsource/ycat-uopmjq-xqj-eat/pyramid/ Also, the Mediterranean Diet is a good [...] should limit your dose to no more [id number] mg daily. This means that you should [...] Progress Notes * Moris Hawk MD - 05/01/2020 3:25 PM CDT I saw Ms. Briseno in [facility] at [facility] today for follow up visit regarding: Chief Complaint Patient presents with ??? Renteria Stage 2 in 2015 Patient Active Problem List: Iron deficiency Nonalcoholic steatohepatitis (RENTERIA) Bmsfg-2-mfowowvmptu deficiency Obesity Type 2 diabetes mellitus Hypertension Osteoarthritis Family history of colon cancer Heartburn Hypercholesterolemia Interim history: No new problems. She reports that her level of energy is great. For exercise she has been walking daily about 20-25 minutes. She notes no right upper quadrant abdominal pain. Fast food consumption: KARIS Hunt several times a week due to work schedule. Sugar sweetened beverage consumption: none. Current Outpatient [...] 100 mg by mouth once daily ??? multivitamins [...] updated and corrected these sections of her [facility] electronic health record based on my discussions with her and/orher family members present at her visit today. She describes her current alcohol consumption as none. . 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 , 3 sons, 6 grandchildren. Review of systems: Chest pain: none. Shortness of breath: none. Dyspnea on exertion: none. Snoring at night: still snoring, no sleep study yet. Nausea and vomiting: none. Reflux or GERD symptoms: none. Constipation or diarrhea: none. Upper or lower GI bleeding: none. Pruritus: hands. On exam today, she appeared obese, alert and anicteric. I reviewed today's vital signs with the patient. Vitals: 05/01/20 1430 BP: 146/77 Pulse: 71 Temp: 97.6 ??F (36.4 ??C) SpO2: 98% Weight: 107.6 kg (237 lb 3.2 oz) Height: 1.575 m (5' 2 ) Body mass index is 43.38 kg/m??. Wt Readings from Last 3 Encounters: 05/01/20 107.6 kg (237 lb 3.2 oz) 11/16/18 104.3 kg (229 lb 14.4 oz) 11/17/17 108.9 kg (240 lb) Affect good. Seen alone. Skin: no spider angiomata. Lungs were clear to auscultation bilaterally. Heart sounds were regular rate and rhythm. There were no murmurs. Abdomen was obese, soft and nontender. Liver edge palpable: no. Spleen palpable: no. Ascites: none. Hernias: none. Pretibial edema: none. Relevant test results: Recent Labs Component Name 04/20/20 1022 11/04/18 [...] - INR - - 1.0 1.0 1.0 Results for DELMI BRISENO ( ) as of 05/01/2020 15:28 04/20/2020 10:22 Iron 58 TIBC 357 Iron Saturation 16 05/01/20 Fibroscan CAP 325, LSM 10.9 kPa Assessment and Plan: 1. 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 LFTs still up a bit. 2. Weight up--not good. 3. Fibroscan liver stiffness up more this year--a bit worrisome. Will recheck next year--biopsy if stiffness is rising more. 4. Continue to walk as much as possible. 5. Focus on healthy eating. 2. Hx of iron deficiency 1. Negative prior EGD and colonoscopy. 2. Continues to take oral supplement bid. 3. Snoring 1. I again recommended a sleep study. An appointment was scheduled for her to see me in followup in one year. Coding comment: this visit required 29 minutes, of which >50% was spent directly counseling the patient and/or family member(s) on their diagnosis, prognosis, and treatment options as outlined in the assessment and plan above as well as the written instructions in the after visit summary provided to the patient. Address letter to: Montana [place] [address] Orders Placed This Encounter ??? PROC FIBROSCAN documented in this encounter Plan of Treatment Upcoming Encounters Date Type Department Care Team (Late st Contact Info) Description 05/02/2025 11:30 AM CDT Procedure visit [facility] - [address] [phone] 05/02/2025 12:30 PM CDT Office Visit [facility] - [address] [phone] Moris Leon MD [address] [place] [address] [place] [address] documented as of this encounter Goals Goal [...] documented as of this encounter Results * ME LIVER ELASTOGRAPHY (05/07/2021 10:59 AM CDT) Narrative Moris Hawk MD - 05/07/2021 10:59 AM CDT Moris Hawk MD ? 05/07/2021 11:31 AM Diagnosis: RENTERIA RN verified patient not , [...] patients with nonalcoholic fatty liver disease. Gastroenterology 2019;156:7973-6961. Duc MS, Michael R, Van Dajuan ML, [...] FIB4 score (Carson et al. Hepatology Communications 2019;3:9011-7829) or NAFLD Fibrosis score (Aguila et al. Clinical Gastroenterology and Hepatology 2019;17:3408-4151. from routine clinical data. 3. Liver stiffness [...] as additional supporting data becomes available. [email or web address] Moris Leon MD PROCEDURE/ MINOR SURGICAL ORDERABLES documented in this encounter Visit Diagnoses Diagnosis Nonalcoholic steatohepatitis (RENTERIA)- Primary Other chronic nonalcoholic liver disease Nonalcoholic steatohepatitis (RENTERIA)- Primary Other chronic nonalcoholic liver disease documented in this encounter Care Teams Buckle And Button Maker Relationship Specialty Start Date End Date Montana Lion MD [address] [place] [address] PCP - General 11/20/15 documented as of this encounter
--- OUTSIDE RECORDS SUMMARY | 2024-08-03 20:30 | XMS_ITS | Encounter Summary ---
Author Organization [facility] Address [address] [place] [address] Care Team Providers Care Puppet Developer Name Role Phone Montana Lion MD Primary Care Provider [phone] Encounter Details Date Type Department Care Team (Latest Contact Info) Description 08/22/2014 Hospital Outpatient Visit [facility] DEFAULT [address] [place] [address] Moris Tovar MD [address] [place] [address] [place] [address] Discharge Disposition: Home or Self Care Social [...] Procedure visit [facility] - GI [address] [place] [phone] 05/02/2025 12:30 PM CDT Office Visit [facility] - GI [address] [place] [phone] Moris Leon MD [address] [place] [address] documented as of this encounter Visit Diagnoses Not on filedocumented in this encounter Care Teams Puppet Developer Relationship Specialty Start Date End Date Montana Lion MD [address] [place] [address] PCP - General 11/20/15 documented as of this encounter
--- OUTSIDE RECORDS SUMMARY | 2024-08-03 20:30 | XMS_ITS | Encounter Summary ---
Author Organization [facility] Address [address] [place] [address] Care Team Providers Care Executive Marketing Assistant Name Role Phone Montana Lion MD Primary Care Provider [phone] Reason for Visit * Auth/Cert Specialty Diagnoses / Procedures Referred By Traci aguilar Referred To Contact Diagnoses Nonalcoholic steatohepatitis (VITALE) Family history of colon cancer Procedures CT NEEDLE BIOPSY LIVER CT COLONOSCOPY,BIOPSY CT COLONOSCOPY,DIAGNOSTIC BIOPSY LIVER (NEEDLE/PERCUTANEOUS) COLONOSCOPY SCREEN Referral ID Status Reason Start Date Expiration Date Visits Re quested Visits Authorized [id number] 1 1 Encounter Details Date Type Department Care Team (Late st Contact Info) Description 07/03/2021 8:09 AM DIAMOND WHEEL MOLDER Anesthesia Event [facility] [address] [place] [phone] John Sagastume MD [address] [place] [phone] Anesthesia Record Procedure Summary Procedure Name Responsible Anesthesiologist Anesthesia Start Time Anesthesia Stop Time BIOPSY LIVER--plt 323, inr 1.1 John Sagastume MD 07/03/21 0809 07/03/21 0857 Events Date Time Event Comment 07/03/2021 0711 0809 An Start 0809 Pt In Room 0809 An Start Data 0811 Anes Timeout 0811 Timeout Anesthesia part icipated in timeout at the time documented in the record by nursing. 0811 Quick Note 0812 PT Reassessment 0814 Induction 0816 Anes Ready 0818 Proc Start 0835 Proc Stop 0836 Quick Note Timeout for hernan er biopsy 0851 An Emergence 0855 an stop data 0855 Pt out of Room 0857 An Stop Meds Name Total lidocaine PF 2% 100 mg propofol 200mg/20mL injection 100 mg propofol 500 mg/50 mL injection 451.5 mg NS (0.9% NaCl) 400 mL * Agents Name Insp. N2O Exp. N2O O2 Flow - Auxiliary O2 * Blood No blood administrations on file. Lines, Drains, and Airways Type Details Placement Removal Peripheral IV Date: 07/03/21; Time: 731; Orientation: Right 07/03/21 0732 by China Hidalgo RN 07/03/21 1103 by Annemarie Potter RN Procedural Site (Incision) 07/03/21; 08; Abdomen; liver bx site closed with bandaid; 07/03/21; 1719 07/03/21 0852 by Susie Gonzalez RN 07/03/21 171 by [employer], Auto Release documented in this encounter Social History Tobacco [...] as of this encounter Progress Notes * John Sagastume MD - 07/03/2021 9:06 AM CST ANESTHESIA POSTOP EVALUATION NOTE Procedure: BIOPSY LIVER--plt 323, inr 1.1 (N/A ) COLONOSCOPY SCREEN (N/A ) Delmi Briseno is a 65 year old female Patient Vitals for the past 6 hrs: BP Temp Pulse Resp Pain Rating Score #1 Pain Scale/Observation 07/03/21 0708 -- 97.9 ??F (36.6 ??C) -- -- 0 N 07/03/21 0715 (!) 195/86 -- 76 17 -- -- 07/03/21 0736 165/77 -- 78 16 -- -- Anesthesia Type: MAC Pre-op Diagnosis Codes: * Nonalcoholic steatohepatitis (VITALE) [K75.81] * Family history of colon cancer [Z80.0] Mental Status: awake, alert, oriented and sufficiently recovered from acute administration of anesthesia to participate in the evaluation Neuro Status: No numbness, tingling or visual disturbances Respiratory Function: natural Cardiac Function: stable Postop Pain: adequate Postop Hydration: adequate Postop Nausea: none Assessment: no apparent anesthetic complications Patient Disposition: Release from Anesthesia Care COMPLICATIONS: No complications documented. OND WHEEL MOLDER * John Sagastume MD - 07/03/2021 7:13 AM CST ANESTHESIA PREOPERATIVE EVALUATION NOTE Procedure: BIOPSY LIVER--plt 323, inr 1.1 (N/A ) COLONOSCOPY SCREEN (N/A ) Vitals: Patient Vitals for the past 6 hrs: Temp Pain Rating Score #1 07/03/21 0708 97.9 ??F (36.6 ??C) 0 ANESTHESIA PRE-EVALUATION NOTE History of Present Illness: 65 yo Female with PMHx of HTN, HLD, DMII, VITALE, and Alpha 1 antitrypsin deficiency here for Liver biopsy. The patient is a current non-smoker. Physical Exam: Orientation X3 Airway/Mallampati Score: I Mouth Opening Distance: 3 fingerwidths Neck ROM: full TM Distance: > 3 FB Teeth: normal Heart: normal - S1 S2 Lungs: clear to ausculation bilaterally Review of Systems: History of anesthetic complications: No Sleep Apnea Risk: No Poor Exercise Tolerance: No Recent Chest Pain: No Shortness of Breath: No AICD/Pacemaker: No Diagnostic Tests: Lab(s) reviewed: Yes. ANESTHESIA PLAN ASA Score: 3 NPO Status: No solids since midnight and No liquids within 2 hours Anesthesia Plan: MAC Planned Induction: intravenous Planned Postop Destination: PACU Anesthetic plan was discussed with: patient Anesthetic Plan discussion was: Consented The patient's procedural Anesthetic Plan was discussed with the anesthesiologist, support assistant and CONVEYOR SYSTEM OPERATOR. BMI, Height, Weight Tobacco History Estimated body mass index is 43.35 kg/m?? as calculated from the following: Height as of this encounter: 1.575 m (5' 2 ). Weight as of this encounter: 107.5 kg (237 lb). Social History Tobacco Use Smoking Status Never Smoker Smokeless Tobacco Never Used Alcohol History Drug History Social History Substance and Sexual Activity Alcohol Use No Social History Substance and Sexual Activity Drug Use No Outpatient Medications: Inpatient Medications: No outpatient medications have been marked as taking for the 07/03/21 encounter (Hospital Encounter). No current facility-administered medications for this encounter. Allergies: Allergies Allergen Reactions ??? Sulfa Drugs Skin Reactions and Itching ??? Adhesive Sensitivity Skin Reactions Paper Tape is OK Relevant Problems No relevant active problems Problem List: Patient Active Problem List Diagnosis Date Noted ??? Iron deficiency 12/31/2015 09/12/14 trf sat 8%, Hgb 11.6, MCV 84. 09/27/14 EGD: normal appearing duodenum, biopsy normal 11/20/15 trf sat 12% ??? Nonalcoholic steatohepatitis (VITALE) 11/21/2014 01/04/14 US ([place]): diffuse steatosis with focal sparing in the left lobe. 09/27/14 liver biopsy: VITALE, stage 2 11/16/18 Fibroscan CAP 383, LSM 9.0 kPa dwp 05/01/20 Fibroscan CAP 325, LSM 10.9 kPa dwp 05/07/21 Fibroscan CAP 381, LSM 10.3 kPa dwp 06/20/21 Fibroscan CAP 377, LSM 14.2 kPa ??? Ahzoa-8-evhysiiaera deficiency 10/13/2014 MZ, level 104 No PASD globules on 09/27/14 liver biopsy ??? Obesity 08/22/2014 ??? Type 2 diabetes mellitus 08/22/2014 ??? Hypertension 08/22/2014 ??? Osteoarthritis 08/22/2014 ??? Family history of colon cancer 08/22/2014 Negative colonoscopy 2013. Followed by Dr. Bright. ??? Heartburn 08/22/2014 ??? Hypercholesterolemia 08/22/2014 Medical History: Past Medical History: Diagnosis Date ??? GERD (gastroesophageal reflux disease) Surgical History: Past Surgical History: Procedure Laterality Date ??? BIOPSY ??? Section ??? Cholecystectomy, Laparoscopic ??? COLECTOMY PARTIAL OR HEMICOLECTOMY 2007 Right hemicolectomy Covid Vaccine: Lab Results: No results found for requested labs within last 120 days. No results found for requested labs within last 120 days. OND WHEEL MOLDER documented in this encounter Miscellaneous Notes * Anesthesia Transfer of Care - LarryrinaLeydi Elaina, ELECTRICAL CONTROLS ASSEMBLER-CONVEYOR SYSTEM OPERATOR - 07/03/2021 8:56 AM CST ANESTHESIA TRANSFER OF CARE NOTE Today's Date: 07/03/2021 Date of : 1955 Patient: Delmi Briseno Procedure(s) with comments: BIOPSY LIVER--plt 323, inr 1.1 - liver biopsy COLONOSCOPY SCREEN - sigmoid polyp x 1 -jumbo forceps diverticulosis right hemicolectomy Surgeon(s): Primary: Moris Hawk MD Preop Diagnosis: Pre-op Diagnois: * Nonalcoholic steatohepatitis (VITALE) [K75.81] * Family history of colon cancer [Z80.0] Pre-op Meds (From admission, onward) Start Stop Status Route Frequency Ordered 07/03/21 0809 0.9% NaCl infusion -- Sent IV CONTINUOUS PRN 07/03/21 0819 07/03/21 0752 0.9% NaCl injection 3 mL -- Dispensed IK PRE-PROCEDURE MULTIPLE 07/03/21 0752 07/03/21 0848 lidocaine (Xylocaine) 1 % injection -- Sent PRN 07/03/21 0848 07/03/21 0814 lidocaine hcl (PF) (Xylocaine MPF) 2 % injection -- Sent IV PRN 07/03/21 0819 07/03/21 0814 propofol (Diprivan) infusion -- Sent IV CONTINUOUS PRN 07/03/21 0819 07/03/21 0814 propofol (Diprivan) injection -- Sent IV PRN 07/03/21 0819 Post-op Diagnosis: * Nonalcoholic steatohepatitis (VITALE) [K75.81] * Family history of colon cancer [Z80.0] . Allergies Allergen Reactions ??? Sulfa Drugs Skin Reactions and Itching ??? Adhesive Sensitivity Skin Reactions Paper Tape is OK Vitals: Patient Vitals for the past 3 hrs: BP Temp Pulse Resp Pain Rating Score #1 07/03/21 0736 165/77 -- 78 16 -- 07/03/21 0715 (!) 195/86 -- 76 17 -- 07/03/21 0708 -- 97.9 ??F (36.6 ??C) -- -- 0 Lines, Drains, and Airways Type Details Placement Removal Peripheral IV Date: 07/03/21; Time: 731; Orientation: Right; Location: Antecubital; Gauge: 22 Gauge 07/03/21 0732 by China Hidalgo RN Intraprocedure I/O Totals Intake NS (0.9% NaCl) 400.00 mL Total Intake 400 mL Patient Transfer Location: PACU Transport Airway: spontaneous respirations Complications: None Handoff Given? Yes Checklist or Protocol - The cruz handoff elements that must be included in the transfer of care checklist include: 1. Identification of patient. 2. Identification of responsible practitioner (PACU nurse or advanced practitioner). 3. Discussion of pertinent medical history. 4. Discussion of the surgical/procedure course (procedure, reason for surgery, procedure performed). 5. Intraoperative anesthetic management and issue/concerns. 6. Expectations/Plans for the early post-procedure period. 7. Opportunity for questions and acknowledgement of understanding of report from the receiving PACUteam. FUENTES Olsen OND WHEEL MOLDER documented in this encounter Plan of Treatment Upcoming Encounters Date Type Department Care Team (Late st Contact Info) Description 05/02/2025 11:30 AM CDT Procedure visit [facility] - [address] [phone] 05/02/2025 12:30 PM CDT Office Visit [facility] - [address] [phone] Moris Leon MD [address] [place] [address] [place] [address] documented as of this encounter Goals Goal [...] Diagnoses Not on filedocumented in this encounter Administered Medications Inactive Administered Medications - up to 3 most recent administrations Medication Order MAR Action Action Date Dose Rate Site 0.9% NaCl infusion Intravenous, CONTINUOUS PRN, Starting on Fri07/03/21 at 0809, Until Fri07/03/21 at 09, Anesthesia Intra-op $ New Bag/Syringe 07/03/2021 8:09 AM DIAMOND WHEEL MOLDER lidocaine hcl (PF) (Xylocaine MPF) 2 % injection Intravenous, PRN, Starting on Fri07/03/21 at 0814, Until Fri07/03/21 at 0904, Anesthesia Intra-op $ Given 07/03/2021 8:14 AM DIAMOND WHEEL MOLDER 100 mg propofol (Diprivan) infusion Intravenous, CONTINUOUS PRN, Starting on Fri07/03/21 at 0814, Until Fri07/03/21 at 09, Anesthesia Intra-op Rate Change 07/03/2021 8:46 AM DIAMOND WHEEL MOLDER 70 mcg/kg/min 45.15 mL/hr Rate Change 07/03/2021 8:34 AM DIAMOND WHEEL MOLDER 100 mcg/kg/min 64.5 mL/ hr Rate Change 07/03/2021 8:27 AM DIAMOND WHEEL MOLDER 120 mcg/kg/min 77.4 mL/ hr propofol (Diprivan) injection Intravenous, PRN, Starting on Fri07/03/21 at 0814, Until Fri07/03/21 at 0904, Anesthesia Intra-op $ Given 07/03/2021 8:14 AM DIAMOND WHEEL MOLDER 100 mg documented in this encounter Care Teams Executive Marketing Assistant Relationship Specialty Start Date End Date Montana Lion MD [address] [place] [address] PCP - General 11/20/15 documented as of this encounter
--- OUTSIDE RECORDS SUMMARY | 2024-08-03 20:30 | XMS_ITS | Encounter Summary ---
Author Organization [facility] Address [address] [facility] [place] [address] Care Team Providers Care Assistant Quality Manager Name Role Phone Montana Lion MD Primary Care Provider [phone] Encounter Details Date Type Department Care Team (Late Contact Info) Description 11/17/2019 Orders Only [facility] - GI [address] [place] [phone] Moris Parish i, MD [address] [place] [address] [place] [address] Nonalcoholic steatohepatitis (VITALE) Social History Tobacco Use [...] 05/02/2025 11:30 AM CDT [facility] [address] [place] [phone] 05/02/2025 12:30 PM CDT Office Visit [facility] - GI [address] [facility], [place] [address] Moris Leon MD [address] [place] [address] [place] [address] documented as of this encounter Visit Diagnoses Diagnosis Nonalcoholic steatohepatitis (VITALE) Other chronic nonalcoholic liver disease documented in this encounter Care Teams Assistant Quality Manager Relationship Specialty Start Date End Date Montana Lion MD [address] [place] [address] PCP - General 11/20/15 documented as of this encounter
--- OUTSIDE RECORDS SUMMARY | 2024-08-03 20:30 | XMS_ITS | Encounter Summary ---
Author Organization [facility] Health Address [address] [place] [address] Care Team Providers Care Document Processor Name Role Phone Montana Lion MD Primary Care Provider [phone] Encounter Details Date Type Department Care Team (Late Contact Info) Description 11/02/2018 Orders Only [facility] [address] [place] [address] Alexx Spring, RN Nonalcoholic steatohepatitis (VITALE) Social History Tobacco [...] Procedure visit [facility] [address] [place] [address] [phone] 05/02/2025 12:30 PM CDT Office Visit [facility] [address] [place] [address] Moris Leon MD [address] [place] [address] [place] [address] documented as of this encounter Procedures Procedure Name Priority Date/Time Associated Diagnosis Comments CBC W AUTO DIFFERENTIAL Routine 11/04/2018 3:15 PM CDT Nonalcoholic steatohepatitis (VITALE) COMPREHENSIVE METABOLIC PANEL Routine 11/04/2018 3:15 PM CDT Nonalcoholic steatohepatitis (VITALE) documented in this encounter Results * (ABNORMAL) COMPREHENSIVE METABOLIC PANEL (11/04/2018 3:15 PM CDT) Glucose 90 65 - 99 mg/dL [facility] INSURANCE BILL BUN 16 8 - 27 mg/dL [facility] INSURANCE BILL Creatinine 0.82 0.57 - 1.00 mg/dL [facility] INSURANCE BILL eGFR by MDRD 77 >59 mL/min/1.7 3 [facility] INSURANCE BILL eGFR by MDRD 89 >59 mL/min/1.7 3 [facility] INSURANCE BILL BUN/Creatinine Ratio 20 12 - 28 [facility] INSURANCE BILL Sodium 140 134 - 144 mmol/L [facility] INSURANCE BILL Potassium 4.5 3.5 - 5.2 mmol/L [facility] INSURANCE BILL Chloride 101 96 - 106 mmol/L [facility] INSURANCE BILL CO2 25 20 - 29 mmol/L [facility] INSURANCE BILL Calcium 9.8 8.7 - 10.3 mg/dL [facility] INSURANCE BILL Protein Total 6.8 6.0 - 8.5 g/dL [facility] INSURANCE BILL Albumin 4.4 3.6 - 4.8 g/dL [facility] INSURANCE BILL Globulin Total 2.4 1.5 - 4.5 g/dL [facility] INSURANCE BILL Albumin/Globulin Ratio 1.8 1.2 - 2.2 [facility] INSURANCE BILL Bilirubin Total 0.7 0.0 - 1.2 mg/dL [facility] INSURANCE BILL Alkaline Phosphatase 83 39 - 117 IU/L [facility] INSURANCE BILL AST 45(H) 0 - 40 IU/L [facility] INSURANCE BILL ALT 68(H) 0 - 32 IU/L [facility] INSURANCE BILL Blood BLOOD SPECIMEN / Unknown 11/04/2018 3:15 PM CDT 11/04/2018 Narrative Resulting Agency Comment [facility] [address] ??[facility] [phone] Moris Leon MD LAB - CHEM ISTRY ORDERABLES [facility] INSURANCE BILL [address] [place] [address] * (ABNORMAL) CBC WITH DIFFERENTIAL (11/04/2018 3:15 PM CDT) WBC 8.8 3.4 - 10.8 x10E3/uL [facility] INSURANCE BILL RBC 4.43 3.77 - 5.28 x10E6/uL [facility] INSURANCE BILL Hemoglobin 12.4 11.1 - 15.9 g/dL [facility] INSURANCE BILL Hematocrit 37.6 34.0 - 46.6 % [facility] INSURANCE BILL MCV 85 79 - 97 fL [facility] INSURANCE BILL MCH 28.0 26.6 - 33.0 pg [facility] INSURANCE BILL MCHC 33.0 31.5 - 35.7 g/dL [facility] INSURANCE BILL RDW 13.7 12.3 - 15.4 % [facility] INSURANCE BILL Platelet Count 304 150 - 379 x10E3/uL [facility] INSURANCE BILL Granulocytes % 46 Not Estab. % [facility] INSURANCE BILL Lymphocytes % 46 Not Estab. % [facility] BILL Monocytes % 5 Not Estab. % [facility] BILL Eosinophils % 3 Not Estab. % [facility] INSURANCE BILL Basophils % 0 Not Estab. % [facility] INSURANCE BILL Immature Cells NOT NEEDED [facility] INSURANCE BILL Comment:Ancillary determined the test is not needed Granulocytes Absolute 4.1 1.4 - 7.0 x10E3/uL [facility] INSURANCE BILL Lymphocytes Absolute 4.1(H) 0.7 - 3.1 x10E3/uL [facility] INSURANCE BILL Monocytes Absolute 0.4 0.1 - 0.9 x10E3/uL [facility] INSURANCE BILL Eosinophils Absolute 0.3 0.0 - 0.4 x10E3/uL [facility] INSURANCE BILL Basophils Absolute 0.0 0.0 - 0.2 x10E3/uL [facility] INSURANCE BILL Immature Granulocytes 0 Not Estab. % [facility] INSURANCE BILL Immature Granulocytes Absolute 0.0 0.0 - 0.1 x10E3/uL [facility] INSURANCE BILL nRBC NOT NEEDED [facility] INSURANCE BILL Comment:Ancillary determined the test is not needed Comment Hematology NOT NEEDED [facility] INSURANCE BILL Comment:Ancillary determined the test is not needed Blood BLOOD SPECIMEN / Unknown 11/04/2018 3:15 PM CDT 11/04/2018 Narrative Resulting Agency Comment [facility] [address] [place] [address] ??[facility] [phone] Moris Leon MD LAB - ANI TOLOGY ORDERABLES [facility] INSURANCE BILL [address] [place] [address] documented in this encounter Visit Diagnoses Diagnosis Nonalcoholic steatohepatitis (VITALE)- Primary Other chronic nonalcoholic liver disease documented in this encounter Care Teams Document Processor Relationship Specialty Start Date End Date Montana Lion MD [address] [place] [address] PCP - General 11/20/15 documented as of this encounter
--- OUTSIDE RECORDS SUMMARY | 2024-08-03 20:30 | XMS_ITS | Patient Health Summary ---
Author Organization [facility] [employer] Address [address] [place] [address] Care Team Providers Care Archivist Military History Name Role Phone Montana Lion MD Primary Care Provider [phone] Note from [facility],non-owned Affiliates and Associated Physician Practices is amultiple site organization consisting of ambulatory clinics and hospital sitesin [place], [place], [place] and [place]. This disclosure is being madepursuant to the Care Everywhere program and may not contain all information available regarding this patient. Last updated 18.[facility] Allergies * Adhesive Sensitivity(Skin Reactions) -Low Criticality * Sulfa Drugs(Skin Reactions,Itching) -Medium Criticality Medications * Be aware that medications may not be up to date on this document. Alwaysverify current medications with the patient. * Coenzyme Q10 (COQ10) 100 MG Take by mouth once daily * cyanocobalamin (VITAMIN B-12) 500 MCG tablet Take 1 (one) tablet by mouth once daily * IRON PO Take 1 tablet by mouth once daily * multivitamins (ONE A DAY) capsule Take 1 (one) capsule by mouth * omeprazole (PRILOSEC) 20 MG capsule(Started 11/09/2017) Take 1 (one) capsule by mouth daily before breakfast * vitamin D3 (CHOLECACIFEROL) 5000 UNITS Take by mouth once daily * aspirin EC (ECOTRIN) 81 MG tablet Take 1 (one) tablet by mouth once daily * Magnesium 400 MG Take by mouth at bedtime * atorvastatin (Lipitor) 80 MG tablet(Started 04/17/2022) Take 1 (one) tablet by mouth once daily * Januvia 25 MG tablet(Started 04/01/2022) Take 1 (one) tablet by mouth once daily * metFORMIN (Glucophage) 1000 MG tablet(Started 05/02/2022) 2 times daily with morning and evening meal * ibuprofen (Motrin) 200 MG tablet Take by mouth every 6 hours as needed * losartan (Cozaar) 100 MG tablet(Started 03/13/2023) * nebivolol (Bystolic) 5 MG tablet(Started 05/12/2023) Take 1 (one) tablet by mouth once daily * fluticasone propionate (Flonase) 50 MCG/ACT nasal spray(Started 05/14/2023) INSTILL 1-2 SPRAYS INTO EACH NOSTRIL TWICE DAILY. 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 Obesity 08/22/2014 Type 2 diabetes mellitus 08/22/2014 Hypertension 08/22/2014 Osteoarthritis 08/22/2014 Family history of colon cancer 08/22/2014 Heartburn 08/22/2014 Hypercholesterolemia 08/22/2014 Immunizations * Covid Moderna primary monovalent 12+ yr 0.5mL(Given 04/04/2022, 10/04/2020, 09/07/2020) * INFLUENZA(Given 05/07/2021) * MODERNA SARS-COV-2 COVID-19 VACCINE 0.25ML(Given 03/13/2023) Social History Tobacco Use Types Packs/Day Years [...] CDT Oxygen Saturation 97% 06/20/2022 8:12 AM MEDICAL INSURANCE BILLER Inhaled Oxygen Concentration - - Weight 102.2 kg (225 lb 3.2 oz) 04/29/2024 8:55 AM CDT Height 157.5 cm (5' 2 ) 04/29/2024 8:55 AM CDT Body Mass Index 41.19 04/29/2024 8:55 AM CDT Procedures * NEEDLE BIOPSY, LIVER(Performed 07/03/2021) Performed for Nonalcoholic steatohepatitis (VITALE) * PATHOLOGY TISSUE(Performed 07/03/2021) Performed for Nonalcoholic steatohepatitis (VITALE), Family history of colon cancer * COLONOSCOPY SCREEN(Performed 07/03/2021) Performed for Nonalcoholic steatohepatitis (VITALE), Family history of colon cancer * BIOPSY LIVER (NEEDLE/PERCUTANEOUS)(Performed 07/03/2021) Performed for Nonalcoholic steatohepatitis (VITALE), Family history of colon cancer * GLUCOSE - POINT OF CARE(Performed 07/03/2021) * ENDOSCOPY, COLON, SCREENING(Performed 07/03/2021) Performed for Family history of colon cancer * CA LIVER ELASTOGRAPHY(Performed 05/07/2021) Performed for Nonalcoholic steatohepatitis (VITALE) * CA LIVER ELASTOGRAPHY(Performed 05/01/2020) Performed for Nonalcoholic steatohepatitis (VITALE) * IRON + TIBC PANEL(Performed 04/20/2020) Performed for Nonalcoholic steatohepatitis (VITALE) * COMPREHENSIVE METABOLIC PANEL(Performed 04/20/2020) Performed for Nonalcoholic steatohepatitis (VITALE) * CBC W AUTO DIFFERENTIAL(Performed 04/20/2020) Performed for Nonalcoholic steatohepatitis (VITALE) * CA LIVER ELASTOGRAPHY(Performed 11/28/2018) Performed for Nonalcoholic steatohepatitis (VITALE) * PROC FIBROSCAN(Performed 11/16/2018) Performed for Nonalcoholic steatohepatitis (VITALE) * COMPREHENSIVE METABOLIC PANEL(Performed 11/04/2018) Performed for Nonalcoholic steatohepatitis (VITALE) * CBC W AUTO DIFFERENTIAL(Performed 11/04/2018) Performed for Nonalcoholic steatohepatitis (VITALE) * PT-INR [facility](Performed 11/06/2017) * COMPREHENSIVE METABOLIC PANEL(Performed 11/06/2017) * CBC W AUTO DIFFERENTIAL(Performed 11/06/2017) * PT-INR [facility](Performed 11/06/2016) * COMPREHENSIVE METABOLIC PANEL(Performed 11/06/2016) * CBC W AUTO DIFFERENTIAL(Performed 11/06/2016) * IRON + TIBC PANEL(Performed 11/30/2015) * PATHOLOGY TISSUE(Performed 09/27/2014) * NOGAS-7-[id number] BLOOD PHENOTYPING PANEL(Performed 09/12/2014) * CERULOPLASMIN(Performed 09/12/2014) * SMOOTH MUSCLE ANTIBODY(Performed 09/12/2014) * KATIA BLOOD SCREEN(Performed 09/12/2014) * MITOCHONDRIAL ANTIBODY SCREEN(Performed 09/12/2014) * IRON + TIBC PANEL(Performed 09/12/2014) * HEPATITIS C ANTIBODY(Performed 09/12/2014) * HEPATITIS B SURFACE ANTIBODY(Performed 09/12/2014) * HEPATITIS B CORE ANTIBODY TOTAL(Performed 09/12/2014) * HEPATITIS B SURFACE ANTIGEN W RFLX CONFIRMATION(Performed 09/12/2014) * HEPATITIS A ANTIBODY(Performed 09/12/2014) * PT-INR [facility](Performed 09/12/2014) * CBC W AUTO DIFFERENTIAL(Performed 09/12/2014) * COMPREHENSIVE METABOLIC PANEL(Performed 09/12/2014) Results * NEEDLE BIOPSY, LIVER (07/03/2021 9:01 AM MEDICAL INSURANCE BILLER) Narrative [facility]OVATION - 07/03/2021 9:01 AM MEDICAL INSURANCE BILLER Moris Hawk MD ? 07/03/2021 ??9:03 AM [...] was placed in RNA stabilization solution for [employer] studies in accordance with an IRB approved protocol. Follow-up appointment: As scheduled. I personally performed this procedure. I was present for all portions of this procedure. Moris Hawk MD Moris Leon MD GI PROCEDU RE ORDERABLES [facility] * PATHOLOGY TISSUE (07/03/2021 8:32 AM MEDICAL INSURANCE BILLER) Only the most recent of2 resultswithin the time period is included. Case Report Surgical Pathology Report ? Case: [id number] ? Authorizing Provider: ??Moris Hawk MD ? Collected: ? 07/03/2021 08:32 AM ? Ordering Location: ? [facility] ENDOSCOPY ?Received: ?07/03/2021 11:24 AM ? Pathologist: ? Elin Nunes MD ? Specimens: ?? A) - Polyp Sigmoid, sigmoid polyp ? B) - Liver, Please send 10 unstained slides to GI studies/[facility] attn Shelly ? Cattoor RN [phone] ? 07/12/2021 9:31 AM [facility] Final Diagnosis Large intestine, sigmoid polyp, biopsy (A): - Benign polypoid mucosa Liver, biopsy (B): - Steatohepatitis, NAFLD activity score 3/8 - Zone 3 perisinusoidal and periportal fibrosis, stage 2 07/12/2021 9:31 AM [facility] Microscopic Description and Comment [...] the 2015 liver biopsy. 07/12/2021 9:31 AM [facility] Clinical History The patient is a 65-year-old woman with a prior right hemicolectomy for benign colonic tumor. Operative procedure/findings: colonoscopy - 2 mm sessile polyp in sigmoid, resected and retrieved. In 2019 labs included total bilirubin 0.7 (0.0-1.2 mg/dL), alkaline phosphatase 94 (29-117 IU/L), AST 41 (0-40 IU/L), ALT 50 (0-32 IU/L). 07/12/2021 9:31 AM [facility] Gross Description The requisition [...] in cassette B1. DF 07/12/2021 9:31 AM [facility] Disclaimer The performance characteristics of all immunohistochemical and indirect immunofluorescence stains (if any) cited in this report were determined by the Histopathology Laboratory of [facility]. Some of these tests were developed by [...] the attending (teaching) pathologist. 07/12/2021 9:31 AM MEDICAL INSURANCE BILLER [facility] LAB Embedded Images 07/12/2021 9:31 AM MEDICAL INSURANCE BILLER [facility] Biopsy, NOS POLYP OF SIGMOID COLON / Unknown 07/03/2021 8:32 AM MEDICAL INSURANCE BILLER 07/03/2021 11:24 AM MEDICAL INSURANCE BILLER Comment:Pre-op diagnosis: Nonalcoholic steatohepatitis (VITALE) [K75.81] Family history of colon cancer [Z80.0] Biopsy, Needle ENTIRE LIVER / Unknown 07/03/2021 8:39 AM MEDICAL INSURANCE BILLER 07/03/2021 11:24 AM MEDICAL INSURANCE BILLER Comment:Pre-op diagnosis: Nonalcoholic steatohepatitis (VITALE) [K75.81] Family history of colon cancer [Z80.0] Moris Leon MD LAB - PATH OLOGY/CYTOLOGY ORDERABLES [facility] [address] [place] [address], [facility] [phone] * (ABNORMAL) GLUCOSE - POINT OF CARE (07/03/2021 7:26 AM MEDICAL INSURANCE BILLER) Glucose WB/POC 134(H) 70 - 115 mg/dL 07/03/2021 7:31 AM MEDICAL INSURANCE BILLER [facility] Specimen Type Arterial 07/03/2021 7:31 AM MEDICAL INSURANCE BILLER [facility] Blood BLOOD SPECIMEN / Unknown 07/03/2021 7:26 AM MEDICAL INSURANCE BILLER 07/03/2021 7:31 AM MEDICAL INSURANCE BILLER Moris Leon MD LAB - POIN T OF CARE ORDERABLES Performing Organization Address City [facility]/State/ZIP Co de Phone Number [facility] [address] [place] [address], [facility] [phone] * ENDOSCOPY, COLON, SCREENING (07/03/2021 7:24 AM MEDICAL INSURANCE BILLER) Report Endoscopy POC Endoscopy Department Report _ [...] and ?oxygen saturations were monitored continuously. The ?CF-[id number] was introduced through the anus and ?advanced to the cecum, identified by appendiceal ?orifice and ileocecal valve. The colonoscopy was ?performed without difficulty. The patient tolerated ?the procedure well. The quality of the bowel ?preparation was evaluated using the BBPS ([place] ?Bowel Preparation Scale) with scores of: Right [...] in the sigmoid colon, removed ?with a Profindo cold forceps. Resected and retrieved. ?4) Diverticulosis [...] Procedure Code(s): ? --- Professional --- ? 91121, Colonoscopy, flexible; with biopsy, single or multiple Diagnosis Code(s): ?--- Professional --- ?Z86.010, Personal history of colonic polyps ?Z98.0, Intestinal bypass and anastomosis status ?K64.0, First degree hemorrhoids ?K63.5, Polyp of colon ?K57.30, Diverticulosis of large intestine without ?perforation or abscess without bleeding CPT copyright 2019 [employer]. All rights reserved. The codes documented in this report are preliminary and upon matchbook maker review may be revised to meet current compliance requirements. Moris Hawk MD 07/03/2021 9:08:27 AM This report has been signed electronically. Note Initiated On: 07/03/2021 7:24 AM Number of Addenda: 0 ? [facility] ? [address] [place] [address] [facility] PROVATION 07/03/2021 7:24 AM MEDICAL INSURANCE BILLER Moris Leon MD GI PROCEDU RE ORDERABLES [facility] PROVATION * CA LIVER ELASTOGRAPHY (05/07/2021 10:59 AM CDT) Narrative [...] based on the following published data: Irvin KELLER, Gris M, aKthy M, et al. Accuracy of FibroScan controlled attenuation parameter and liver stiffness measurement in assessing steatosis and fibrosis in patients with nonalcoholic fatty liver disease. Gastroenterology 2019;156:6839-8306. Duc MS, Michael R, Van Dajuan ML, [...] improved by also calculating the FIB4 score (Shamauke et al. Hep[employer] 2019;3:5840-4279) or NAFLD Fibrosis score (Aguila et al. Clinical Gastroenterology and Hepatology 2019;17:6435-6568. from routine clinical data. 3. Liver stiffness [...] change as additional supporting data becomes available. [email or web address] Moris Leon MD PROCEDURE/ MINOR SURGICAL ORDERABLES * PROC FIBROSCAN (05/01/2020 1:59 PM CDT) [...] patients with nonalcoholic fatty liver disease. Gastroenterology 2019;156:5089-5884. Duc MS, Michael R, Van Dajuan ML, [...] improved by also calculating the FIB4 score (Shamauke et al. [employer] 2019;3:3454-2664) or NAFLD Fibrosis score (Aguila et al. Clinical Gastroenterology and Hepatology 2019;17:0375-0342. from routine clinical data. 3. Liver stiffness [...] change as additional supporting data becomes available. [email or web address] Moris Leon MD PROCEDURE/ MINOR SURGICAL ORDERABLES * CBC WITH DIFFERENTIAL (04/20/2020 10:22 AM CDT) Only the most recent of5 resultswithin the time period is included. WBC 8.2 3.4 - 10.8 x10E3/uL [facility] INSURANCE BILL RBC 4.52 3.77 - 5.28 x10E6/uL [facility] INSURANCE BILL Hemoglobin 12.9 11.1 - 15.9 g/dL [facility] INSURANCE BILL Hematocrit 38.8 34.0 - 46.6 % [facility] INSURANCE BILL MCV 86 79 - 97 fL [facility] INSURANCE BILL MCH 28.5 26.6 - 33.0 pg [facility] INSURANCE BILL MCHC 33.2 31.5 - 35.7 g/dL [facility] INSURANCE BILL RDW 12.4 11.7 - 15.4 % [facility] INSURANCE BILL Platelet Count 310 150 - 450 x10E3/uL [facility] INSURANCE BILL Granulocytes % 54 Not Estab. % [facility] INSURANCE BILL Lymphocytes % 36 Not Estab. % [facility] INSURANCE BILL Monocytes % 5 Not Estab. % [facility] INSURANCE BILL Eosinophils % 4 Not Estab. % [facility] INSURANCE BILL Basophils % 1 Not Estab. % [facility] INSURANCE BILL Immature Cells NOT NEEDED [facility] INSURANCE BILL Comment:Ancillary determined the test is not needed. Granulocytes Absolute 4.4 1.4 - 7.0 x10E3/uL [facility] INSURANCE BILL Lymphocytes Absolute 3.0 0.7 - 3.1 x10E3/uL [facility] INSURANCE BILL Monocytes Absolute 0.4 0.1 - 0.9 x10E3/uL [facility] INSURANCE BILL Eosinophils Absolute 0.3 0.0 - 0.4 x10E3/uL [facility] INSURANCE BILL Basophils Absolute 0.1 0.0 - 0.2 x10E3/uL [facility] INSURANCE BILL Immature Granulocytes 0 Not Estab. % [facility] INSURANCE BILL Immature Granulocytes Absolute 0.0 0.0 - 0.1 x10E3/uL [facility] INSURANCE BILL nRBC NOT NEEDED [facility] INSURANCE BILL Comment:Ancillary determined the test is not needed. Comment Hematology NOT NEEDED [facility] INSURANCE BILL Comment:Ancillary determined the test is not needed. Blood BLOOD SPECIMEN / Unknown 04/20/2020 10:22 AM CDT 04/20/2020 Narrative Resulting Agency Comment Lab Testing performed at: [facility] [id number] [facility] ??[facility] [id number] Moris Leon MD LAB - ANI TOLOGY ORDERABLES [facility] INSURANCE BILL [address] [place] [address] * (ABNORMAL) COMPREHENSIVE METABOLIC PANEL (04/20/2020 10:22 AM CDT) Only the most recent of5 resultswithin the time period is included. Glucose 195(H) 65 - 99 mg/dL [facility] [...] Resulting Agency Comment [facility]: [facility] [address] [facility] ??[facility] [id number] Moris Leon MD LAB - CHEM ISTRY ORDERABLES [facility] INSURANCE BILL [address] [place] [address] * IRON + TIBC PANEL (04/20/2020 10:22 AM CDT) Only the most recent of3 resultswithin the time period is included. TIBC 357 250 - 450 ug/dL [facility] INSURANCE BILL UIBC 299 118 - 369 ug/dL [facility] INSURANCE BILL Iron 58 27 - 139 ug/dL [facility] INSURANCE BILL Iron Saturation 16 15 - 55 % [facility] INSURANCE BILL Blood BLOOD SPECIMEN / Unknown 04/20/2020 10:22 AM CDT 04/20/2020 Narrative Resulting Agency Comment Lab Testing performed at: [facility] [place] [address] ??[facility] [phone] Moris Leon MD LAB - CHEM ISTRY ORDERABLES [facility] INSURANCE BILL [address] [place] [address] * CA LIVER ELASTOGRAPHY (11/28/2018 3:29 PM CDT) Narrative Mrois Hawk MD - 11/28/2018 3:29 PM CDT [...] change as additional supporting data becomes available. [email or web address] Moris Leon MD PROCEDURE/ MINOR SURGICAL ORDERABLES * PROC FIBROSCAN (11/16/2018 10:41 AM CDT) Moris Leon MD PROCEDURE/ MINOR SURGICAL ORDERABLES * PT-INR [facility] (11/06/2017 10:30 AM CDT) Only the most recent of3 resultswithin the time period is included. INR 1.0 0.8 - 1.2 [facility] ([facility]) Comment: Reference interval is for non-anticoagulated patients. Suggested INR therapeutic range for Vitamin K antagonist therapy: ?? Standard Dose (moderate intensity ?therapeutic range): ? 2.0 - 3.0 ?? Higher intensity therapeutic range ? 2.5 - 3.5 PT 10.4 9.1 - 12.0 sec [facility] ([facility]) 11/06/2017 10:3 0 AM CDT 11/06/2017 Narrative [facility] ([facility]) - 11/07/2017 6:14 AM CDT Performed at: ??01 - [facility] ??[id number] Computer Tech: Haim Schaeffer PhD, Phone: ??[phone] Specimen Comment: A courtesy copy of this report has been sent to Specimen Comment: [phone]. Moris Leon MD LAB - COAG ULATION ORDERABLES Performing Organization Address City/[facility]/ZIP Co de Phone Number [facility] ([facility]) [address] [place] [address] * KATIA BLOOD SCREEN (09/12/2014 9:00 AM MEDICAL INSURANCE BILLER) KATIA Direct Negative Negative [facility] (BEAKER) Venous blood specimen (specimen) 09/12/2014 9:00 AM MEDICAL INSURANCE BILLER 09/12/2014 11:43 PM MEDICAL INSURANCE BILLER Narrative [facility] (BEAKER) - 09/14/2014 11:26 AM MEDICAL INSURANCE BILLER Performed at: ??01 - [facility] ??[id number] Computer Tech: Ion Leon PhD, Phone: ??[phone] Moris Leon MD LAB - CHEM ISTRY ORDERABLES Performing Organization Address City/[facility]/ZIP Co de Phone Number [facility] (BEAKER) * MITOCHONDRIAL ANTIBODY SCREEN (09/12/2014 9:00 AM MEDICAL INSURANCE BILLER) Mitochondrial M2 Antibody <20.0 0.0 - 20.0 Units [facility] (BEAKER) Comment: ?Negative ?0.0 - 20.0 ?Equivocal ??20.1 - 24.9 ?Positive ? >24.9 Mitochondrial (M2) Antibodies are found in 90-96% of patients with primary biliary cirrhosis. Blood specimen (specimen) BLOOD SPECIMEN / Unknown 09/12/2014 9:00 AM MEDICAL INSURANCE BILLER 09/12/2014 11:43 PM MEDICAL INSURANCE BILLER Narrative [facility] ([place]) - 09/14/2014 11:26 AM MEDICAL INSURANCE BILLER Performed at: ??01 - [facility] [address], [place], [place] ??[id number] Computer Tech: Ion Leon PhD, Phone: ??[phone] Moris Leon MD LAB - CHEM ISTRY ORDERABLES [facility] ([place]) * NHYMD-5-QHCRQGQZLUD BLOOD PHENOTYPING PANEL (09/12/2014 9:00 AM MEDICAL INSURANCE BILLER) Tzrvj-9-Tarifdkmhc n 106 90 - 200 mg/dL [facility] ([place]) Phenotype MZ [facility] ([place]) Comment: Phenotype ?? Population ? A-1-AT Concentration* ?Incidence % ? % of MM ??Ref. Range ??Mean MM ?86.5% ?100% ? (90-200) ?145 MS ? 8.0% ? 81% ? (73-162) ?118 MZ ? 3.9% ? 60% ? (54-120) ? 87 FM ? 0.4% ? 97% ? (87-194) ?141 SZ ? 0.3% ? 39% ? (35- 78) ? 57 SS ? 0.1% ? 71% ? (64-142) ?103 ZZ ? 0.05% ? 7% ? ( 6- 14) ? 10 FS ? 0.05% ?66% ? (59-132) ? 96 FZ ?Unknown ? Unknown FF ?Unknown ? Unknown *A-1-AT concentration in the homozygous MM phenotype is taken as the reference normal. ??Deficiency in phenotypes is reported relative to this reference. Blood specimen (specimen) BLOOD SPECIMEN / Unknown 09/12/2014 9:00 AM MEDICAL INSURANCE BILLER 09/12/2014 11:43 PM MEDICAL INSURANCE BILLER Narrative [facility] ([place]) - 09/14/2014 11:26 AM MEDICAL INSURANCE BILLER Performed at: ??01 - [facility] [address], [place], [place] ??[id number] Computer Tech: Ion Leon PhD, Phone: ??[phone] Performed at: ??02 - [facility] [address] ??[id number] Computer Tech: Landen Breen MD, Phone: ??[phone] Moris Leon MD LAB - CHEM ISTRY ORDERABLES Performing Organization Address [facility] de Phone Number [facility] ([place]) * CERULOPLASMIN (09/12/2014 9:00 AM MEDICAL INSURANCE BILLER) Ceruloplasmin 24.9 16.0 - 45.0 mg/dL [facility] ([place]) Blood specimen (specimen) BLOOD SPECIMEN / Unknown 09/12/2014 9:00 AM MEDICAL INSURANCE BILLER 09/12/2014 11:43 PM MEDICAL INSURANCE BILLER Narrative [facility] ([place]) - 09/14/2014 11:26 AM MEDICAL INSURANCE BILLER Performed at: ??01 - [facility] ??[id number] Computer Tech: Ion Leon PhD, Phone: ??[phone] Moris Leon MD LAB - CHEM ISTRY ORDERABLES Performing Organization Address [facility] de Phone Number [facility] * SMOOTH MUSCLE ANTIBODY (09/12/2014 9:00 AM MEDICAL INSURANCE BILLER) Actin (Smooth Muscle) Antibody 7 0 - [address] [facility] ([place]) Comment: ? Negative ? 0 - 19 ? Weak positive ? 20 - 30 ? Moderate to strong positive ? >30 Actin Antibodies are found in 52-85% of patients with autoimmune hepatitis or chronic active hepatitis and in 22% of patients with primary biliary cirrhosis. 09/12/2014 9:00 AM MEDICAL INSURANCE BILLER 09/12/2014 11:43 PM MEDICAL INSURANCE BILLER Narrative [facility] ([place]) - 09/14/2014 11:26 AM MEDICAL INSURANCE BILLER Performed at: ??01 - [address] ??[id number] Computer Tech: Ion Leon PhD, Phone: ??[phone] Moris Leon MD LAB - SERO LOGY ORDERABLES Performing Organization Address [facility] de Phone Number [facility] ([place]) * HEPATITIS B SURFACE ANTIBODY (09/12/2014 9:00 AM MEDICAL INSURANCE BILLER) Hepatitis B Virus Surface Antibody Non Reactive [facility] Comment: ?Non Reactive: Inconsistent with immunity, ?less than 10 mIU/mL ?Reactive: ? Consistent with immunity, ?greater than 9.9 mIU/mL Blood specimen (specimen) BLOOD SPECIMEN / Unknown 09/12/2014 9:00 AM MEDICAL INSURANCE BILLER 09/12/2014 11:43 PM MEDICAL INSURANCE BILLER Narrative [facility] ([place]) - 09/14/2014 11:26 AM MEDICAL INSURANCE BILLER Performed at: ??01 - [address] ??[id number] Computer Tech: Ion Leon PhD, Phone: ??[phone] Moris Leon MD LAB - CHEM ISTRY ORDERABLES Performing Organization Address [facility] Co de Phone Number [facility] ([facility]) * HEPATITIS B CORE ANTIBODY (09/12/2014 9:00 AM MEDICAL INSURANCE BILLER) Hepatitis B Core Virus Antibody Total Negative Negative [facility] ([facility]) Blood specimen (specimen) BLOOD SPECIMEN / Unknown 09/12/2014 9:00 AM MEDICAL INSURANCE BILLER 09/12/2014 11:43 PM MEDICAL INSURANCE BILLER Narrative [facility] ([place]) - 09/14/2014 11:26 AM MEDICAL INSURANCE BILLER Performed at: ??01 - [address] ??[id number] Computer Tech: Ion Leon PhD, Phone: ??[phone] Moris Leon MD LAB - CHEM ISTRY ORDERABLES Performing Organization Address [facility] de Phone Number [facility] ([place]) * HEPATITIS B SURFACE ANTIGEN W RFLX CONFIRMATION (09/12/2014 9:00 AM MEDICAL INSURANCE BILLER) Hepatitis B Virus Surface Antigen Screen Negative Negative [facility] ([place]) Blood specimen (specimen) BLOOD SPECIMEN / Unknown 09/12/2014 9:00 AM MEDICAL INSURANCE BILLER 09/12/2014 11:43 PM MEDICAL INSURANCE BILLER Narrative [facility] ([place]) - 09/14/2014 11:26 AM MEDICAL INSURANCE BILLER Performed at: ??01 - [address] ??[id number] Computer Tech: Ion Leon PhD, Phone: ??[phone] Moris Leon MD LAB - CHEM ISTRY ORDERABLES Performing Organization Address [facility] de Phone Number [facility] (JUAN JOSE) * HEPATITIS C ANTIBODY (09/12/2014 9:00 AM MEDICAL INSURANCE BILLER) Hepatitis C Virus Antibody 0.1 0.0 - 0.9 s/co ratio [facility] (JUAN JOSE) Comment: ?Negative: ? < 0.8 ? Indeterminate: 0.8 - 0.9 ?Positive: ? > 0.9 ??In order to reduce the incidence of a false positive ??result, the CDC recommends that all s/co ratios ??between 1.0 and 10.9 be confirmed by a more specific ??supplemental or PCR testing. [facility] offers HCV Ab ??w/Reflex to Verification test #[id number]. Blood specimen (specimen) BLOOD SPECIMEN / Unknown 09/12/2014 9:00 AM MEDICAL INSURANCE BILLER 09/12/2014 11:43 PM MEDICAL INSURANCE BILLER Narrative [facility] ([place]UAN JOSE) - 09/14/2014 11:26 AM MEDICAL INSURANCE BILLER Performed at: ??[address] ??[id number] Computer Tech: Ion Leon PhD, Phone: ??[phone] Moris Leon MD LAB - CHEM ISTRY ORDERABLES Performing Organization Address [facility] de Phone Number [facility] (JUAN JOSE) * HEPATITIS A ANTIBODY (09/12/2014 9:00 AM MEDICAL INSURANCE BILLER) Hepatitis A Virus Antibody Total Negative Negative [facility] (JUAN JOSE) Blood specimen (specimen) 09/12/2014 9:00 AM MEDICAL INSURANCE BILLER 09/12/2014 11:43 PM MEDICAL INSURANCE BILLER Narrative [facility] ([place] JOSE) - 09/14/2014 11:26 AM MEDICAL INSURANCE BILLER Performed at: ??[address] ??[id number] Computer Tech: Ion Leon PhD, Phone: ??[phone] Moris Leon MD LAB - CHEM ISTRY ORDERABLES [facility] ([place]UAN JOSE) Care Teams Archivist Military History Relationship Specialty Start Date End Date Montana Lion MD [address] [place] [address] PCP - General 11/20/15
--- OUTSIDE RECORDS SUMMARY | 2024-08-03 20:30 | XMS_ITS | Encounter Summary ---
Author Organization [facility] Health Address [address] [place] [address] Care Team Providers Care Blower Installer Name Role Phone Montana Lion MD Primary Care Provider [phone] Encounter Details Date Type Department Care Team (Late st Contact Info) Description 11/16/2018 10:20 AM CDT Procedure visit [facility] GI [address] [place] [address] Unknown, Provider Moris Parish i, MD [address] OF GASTROENTEROLOGY [place], [place] [phone] VITALE (nonalcoholic steatohepatitis) Social History Tobacco Use Types Packs/Day Years [...] Sign Reading Time Taken Comments Blood Pressure 170/69 11/16/2018 10:26 AM CDT Pulse 58 11/16/2018 10:26 AM CDT Temperature 36.9 ??C (98.4 ??F) 11/16/2018 1 0:26 AM CDT Respiratory Rate 18 11/16/2018 10:2 6 AM CDT Oxygen Saturation 99% 11/16/2018 10: 26 AM CDT Inhaled Oxygen Concentration - - Weight 104.3 kg (229 lb 14.4 oz) 2018 10:26 AM CDT Height 157.5 cm (5' 2 ) 11/16/2018 10:2 6 AM CDT Body Mass Index 42.05 11/16/2018 10:26 AM CDT documented in this encounter Progress Notes * Ree Barrow RN - 11/16/2018 10:29 AM CDT Diagnosis: VITALE RN verified patient not , no implanted devices and NPO for prior 3 hours. Vital signs taken, procedure explained and consent signed. Date of Exam: 11/16/2018 Liver Stiffness: (E, kPa) median: 9.0 IQR (interquartile range): 1.5 IQR/Median% (ideally < 30%): 17 CAP (controlled attenuation parameter): 383 Technical Difficulty: None Ordering Provider: Dr. Moris [...] change as additional supporting data becomes available. [email or web address].[email or web address].[email or web address]/kbh-wdvwmzrj-zpimqxjxqx documented in this encounter Procedure Notes * Moris Hawk MD - 11/28/2018 3:28 PM CDTAssociated Order(s): PROC FIBROSCAN Procedure(s): [place] LIVER ELASTOGRAPHY Pre-Procedure Diagnose(s): Nonalcoholic steatohepatitis (VITALE) Diagnosis: VITALE RN verified patient not , no implanted devices and NPO for prior 3 hours. Vital signs taken, procedure explained and consent signed. Date of Exam: 11/16/2018 Liver Stiffness: (E, kPa) median: 9.0 IQR (interquartile range): 1.5 IQR/Median% (ideally < 30%): 17 CAP (controlled attenuation parameter): 383 Technical Difficulty: None Ordering Provider: Dr. Moris [...] change as additional supporting data becomes available. [email or web address].[email or web address].com/plf-tbokqoth-yagjmxqjaa documented in this encounter Plan of Treatment Upcoming Encounters Date Type Department Care Team (Late st Contact Info) Description 05/02/2025 11:30 AM CDT Procedure visit [facility] - [address] [phone] 05/02/2025 12:30 PM CDT Office Visit [facility] - [address] [phone] Moris Leon MD [address] [place] [address] [place] [address] documented as of this encounter Procedures Procedure Name Priority Date/Time Associated Diagnosis Comments [place] LIVER ELASTOGRAPHY Routine 11/28/2018 3:29 PM CDT Nonalcoholic steatohepatitis (VITALE) documented in this encounter Visit Diagnoses Diagnosis VITALE (nonalcoholic steatohepatitis)- Primary Other chronic nonalcoholic liver disease documented in this encounter Care Teams Blower Installer Relationship Specialty Start Date End Date Montana Lion MD [address] [place] [address] PCP - General 11/20/15 documented as of this encounter
--- OUTSIDE RECORDS SUMMARY | 2024-08-03 20:30 | XMS_ITS | Encounter Summary ---
Author Organization [facility] Health Address [address] [place] [address] Care Team Providers Care Cap Sewer Name Role Phone Montana Lion MD Primary Care Provider [phone] Encounter Details Date Type Department Care Team (Latest Contact Info) Description 11/21/2014 Hospital Outpatient Visit [facility] [address] [place] [address] Moris Tovar MD [address] [place] [address] [place] [address] Discharge Disposition: Home or Self Care Social [...] Procedure visit [facility] - GI [address] [place] [phone] 05/02/2025 12:30 PM CDT Office Visit [facility] - GI [address] [place] [phone] Moris Leon MD [address] [place] [address] documented as of this encounter Visit Diagnoses Not on filedocumented in this encounter Care Teams Cap Sewer Relationship Specialty Start Date End Date Montana Lion MD [address] [place] [address] PCP - General 11/20/15 documented as of this encounter
--- OUTSIDE RECORDS SUMMARY | 2024-08-03 20:30 | XMS_ITS | Encounter Summary ---
Author Organization [facility] Health Address [address] [facility] [place] [address] Care Team Providers Care Metal Model Maker Name Role Phone Montana Lion MD Primary Care Provider [phone] Reason for Visit * Reason Onset Date Comments Pre-op Instructions 06/27/2021 Encounter Details Date Type Department Care Team (Late st Contact Info) Description 06/27/2021 Patient Outreach [facility] [address] [place] [phone] Sharon Alanis, RN Pre-op Instructions Social History Tobacco Use Types Packs/Day Years [...] encounter Miscellaneous Notes * Telephone Encounter - Sharon Alanis RN - 07/02/2021 11:19 AM BULB FARMWORKER Labs 06/20/2021 Plt 323 inr 1.1 FARMWORKER * Telephone Encounter - Sharon Alanis RN - 06/27/2021 10:16 AM BULB FARMWORKER Pt reconfirms colonoscopy and liver biopsy on 07/03/2021 at 0800am. Has stopped ASA> made aware to avoid NSAIDS as well. Reports getting labs done on 06/18 at [facility] as part of study. Messaged and called Shelly FARMWORKER documented in this encounter Plan of Treatment Upcoming Encounters Date Type Department Care Team (Late st Contact Info) Description 05/02/2025 11:30 AM CDT Procedure visit [facility] - GI [address] [place] [address], [place] [address] 05/02/2025 12:30 PM CDT Office Visit [facility] - GI [address] [place] [phone] Moris Leon MD [address] [place] [address] [place] [address] documented as of this encounter Goals Goal [...] on filedocumented in this encounter Care Teams Metal Model Maker Relationship Specialty Start Date End Date Montana Lion MD [address] [place] [address] PCP - General 11/20/15 documented as of this encounter
--- OUTSIDE RECORDS SUMMARY | 2024-08-03 20:30 | XMS_ITS | Encounter Summary ---
Author Organization [facility] Health Address [address] [facility] [place] [address] Care Team Providers Care Coppersmith Helper Name Role Phone Montana Lion MD Primary Care Provider [phone] Encounter Details Date Type Department Care Team (Late Contact Info) Description 04/30/[address] [facility] - GI [address] [place] [phone] Alexx Spring, RN Nonalcoholic steatohepatitis (VITALE) Social [...] 11:30 AM CDT Procedure visit [facility] - GI [address] [place] [phone] 05/02/2025 12:30 PM CDT Office Visit [facility] - GI [address] [place] [phone] Moris Leon MD [address] [place] [address] Scheduled Orders Name Type Priority Associated Diagnoses Orde r Schedule CBC WITH DIFFERENTIAL Lab Routine Nonalcoholic steatohepatitis (VITALE) Ordered: 04/30/2021 COMPREHENSIVE METABOLIC PANEL Lab Routine Nonalcoholic steatohepatitis (VITALE) Ordered: 04/30/2021 IRON + TIBC + FERRITIN Lab Routine Nonalcoholic steatohepatitis (VITALE) Ordered: 04/30/2021 documented as of this encounter Goals Goal [...] disease documented in this encounter Care Teams Coppersmith Helper Relationship Specialty Start Date End Date Montana Lion MD [address] [place] [address] PCP - General 11/20/15 documented as of this encounter
--- OUTSIDE RECORDS SUMMARY | 2024-08-03 20:30 | XMS_ITS | Encounter Summary ---
Author Organization [facility] Health Address [address] [facility] [address] Care Team Providers Care Facial Operator Name Role Phone Montana Lion MD Primary Care Provider [phone] Reason for Referral * Procedure (Routine) - Closed Specialty Diagnoses / Procedures Referred By Traci aguilar Referred To Contact Gastroenterology Diagnoses Nonalcoholic steatohepatitis (RENTERIA) Procedures NEEDLE BIOPSY, LIVER Moris Leon MD [address] [place] [address] Referral ID Status Reason Start Date Expiration Date Visits Re quested Visits Authorized [id number] Closed 05/07/2021 05/07/2022 1 1 * Procedure (Routine) - Closed Specialty Diagnoses / Procedures Referred By Traci aguilar Referred To Contact Gastroenterology Diagnoses Family history of colon cancer Procedures ENDOSCOPY, COLON, SCREENING Moris Leon MD [address] [place] [address] Referral ID Status Reason Start Date Expiration Date Visits Re quested Visits Authorized [id number] Closed 05/07/2021 05/07/2022 1 1 Reason for Visit * Reason Comments Renteria Stage 2 in 2015 Encounter Details Date Type Department Care Team (Latest Contact Info) Description 05/07/2021 11:30 AM CDT Office Visit [facility] - GI [address] [place] [address], [place] [address] Moris Tovar MD [address] [place] [address] [place] [address] Bdjaw-9-xqxtudltkga deficiency (HCC) (Primary Dx); Nonalcoholic steatohepatitis (RENTERIA); Family history of colon cancer Social History Tobacco Use Types Packs/Day Years [...] Sign Reading Time Taken Comments Blood Pressure 165/74 05/07/2021 11:02 AM CDT Pulse 75 05/07/2021 11:02 AM CDT Temperature - - Respiratory Rate 14 05/07/2021 11:02 AM CDT Oxygen Saturation 99% 05/07/2021 11:02 AM CDT Inhaled Oxygen Concentration - - Weight 108.4 kg (239 lb) 05/07/2021 11:02 AM CDT Height 157.5 cm (5' 2 ) 05/07/2021 11:02 AM CDT Body Mass Index 43.71 05/07/2021 11:02 AM CDT documented in this encounter Patient Instructions * Patient Instructions* Moris Hawk MD - 05/07/2021 11:48 AM CDT Thank you for entrusting your healthcare to the physicians and other specialists at the [facility] clinic today. Following your [...] am to noon, 1 to 4:30 pm ). ?? Press 1 to make schedule or [...] please call (hospital main number), ask the sorting grapple operator to call the gastroenterology fellow rewards consultant. ?? Emergency: call 911 or go to your closest emergency room. ?? We encourage you to use [employer] to send and receive messages and review your test results. Let us know if you need information on signing up for [employer]. More information about us and our services can be found on our websites at [email or web address]/gastroenterology-hepatology/index.php and [email or web address]://[email or web address]/nzn-tjbygwii-ougoxrhx-[facility] Information about the [facility], a uua-yyd-eefvwa organization supporting liver disease research by your doctors and researchers at [facility], can be found at: [email or web address].[email or web address] IMPORTANT 05/07/2021 The following information and instructions are from your visit today: 1. Shelly will call you about the observational study. 2. Based on the duration since your last biopsy (or if you have never had a liver biopsy) and the risk of progressive liver disease, I have recommended a liver biopsy for diagnosis and/or staging of your liver disease. As we discussed, the major risks and benefits of the liver biopsy are as follows: pain after the biopsy (in 1/3), bleeding that could require blood transfusion or surgery to stop bleeding (08/999); perforation of lung, gallbladder, kidney, intestine (less than 08/999); as we discussed, the benefits are related to obtaining a better diagnosis and staging of liver disease. It is important that you tell Dr. Hawk if you have had a history of excessive bleeding (for example, from minor cuts). Before the biopsy, please follow these important instructions: Do not take any aspirin or aspirin containing products (example: Purvi [place]) for 5 days. Do not take any arthritis-type pain pills (examples: Motrin, Nuprin, Advil, Aleve, ibuprofen, naproxen) for 48 hours. Do not eat any food after midnight. Keep fluid to a minimum. It's okay to take sips of water, enough to take medications. The following are my general recommendations for [...] find that it helps to have a care trainer to provide guidance if you can afford it. 2. Eat healthy foods. Don't diet because just using that word to describe what we eat means that we are depriving ourselves. Just focus on heathy eating in reasonable portion sizes and keep indiscretions to a minimum. Good advice on nutrition can be found on the website for the [place] Healthy Eating Pyramid. Either search for that on the internet or go to: http://www.[facility].[place].edu/nutritionsource/cndd-cerrxb-cjs-eat/pyramid/ Also, the Mediterranean Diet is a good [...] should limit your dose to no more [id number] mg daily. This means that you should [...] Progress Notes * Moris Hawk MD - 05/07/2021 11:26 AM CDT I saw Ms. Briseno in Liver [facility] at [facility] today for follow up visit regarding: Chief Complaint Patient presents with ??? Renteria Stage 2 in 2015 Patient Active Problem List: Iron deficiency Nonalcoholic steatohepatitis (RENTERIA) Kot[place]-0-qlnimnhmpfr deficiency Obesity Type 2 diabetes mellitus Hypertension Osteoarthritis Family history of colon cancer Heartburn Hypercholesterolemia Interim history: No new problems. No covid. Got Moderna vaccinations. She reports that her level of energy is good. For exercise she has been busy with grandchildren and their activities, walking near home. She notes no right upper quadrant abdominal pain. Fast food consumption: some lately--2-3 times a week due to long work hours. Sugar sweetened beverage consumption: none. Current Outpatient [...] updated and corrected these sections of her [facility] electronic health record based on my discussions with her and/orher family members present at her visit today. She describes her current alcohol consumption as none. 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 , 3 sons, 6 grandchildren. Review of systems: Chest pain: none. Shortness of breath: none. Dyspnea on exertion: stairs. Snoring at night: yes, no CPAP. Insurance declined sleep study in the past. Nausea and vomiting: occasional morning nausea. Reflux or GERD symptoms: controlled by PPI. No dysphagia. Constipation or diarrhea: none. Upper or lower GI bleeding: none. Pruritus: quite a bit, underneath the skin, Benedryl helps. On exam today, she appeared obese, alert and anicteric. I reviewed today's vital signs with the patient. Vitals: 05/07/21 1102 BP: 165/74 Pulse: 75 Resp: 14 SpO2: 99% Weight: 108.4 kg (239 lb) Height: 1.575 m (5' 2 ) Body mass index is 43.71 kg/m??. Wt Readings from Last 3 Encounters: 05/07/21 108.4 kg (239 lb) 05/01/20 107.6 kg (237 lb 3.2 oz) 11/16/18 104.3 kg (229 lb 14.4 oz) Affect good. Seen alone. Skin: no spider angiomata. Lungs were clear to auscultation bilaterally. Heart sounds were regular rate and rhythm. There were no murmurs. Abdomen was obese, soft and nontender. Liver edge palpable: 2 cm below the right costal margin, firm, nontender. Spleen palpable: no. Ascites: none. Hernias: none. Pretibial edema: none. Relevant test results: No recent labs available. 05/07/21 Fibroscan CAP 381, LSM 10.3 kPa Assessment and Plan: 1. 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 No recent labs--will recheck. I will send an order to [facility] if she won't getting labs as part ofa study. She will let me know. 2. Weight up more--not good. 3. Fibroscan liver stiffness up more this year--a bit worrisome. Will plan on doing a liver biopsy to further assess. 4. She may be interested in our multicenter observational study of patients with fatty liver disease and would like to be called. 5. Continue to walk as much as possible. 6. Focus on healthy eating. 2. Hx of iron deficiency 1. Negative prior EGD and colonoscopy. 2. Transferrin sat increased to 16% last year 3. Continues to take oral supplement bid. 3. FH of colon cancer 1. She would like me to do the repeat colonoscopy since I have her coming in for a liver biopsy anyway. An appointment was scheduled for her to [...] patient. Address letter to: Montana Lion MD [address] [place] [phone] Orders Placed This Encounter ??? ENDOSCOPY, COLON, SCREENING ??? NEEDLE BIOPSY, LIVER Coding Rationale New or est? Established Patient Highest problem complexity: 2 or more stable chronic illnesses Highest level of risk: Moderate Suggested code: 21198 documented in this encounter Plan of Treatment Upcoming Encounters Date Type Department Care Team (Late st Contact Info) Description 05/02/2025 11:30 AM CDT Procedure visit [facility] - GI [address] [place] [address], [place] [address] 05/02/2025 12:30 PM CDT Office Visit [facility] - GI [address] [place] [phone] Moris Leon MD [address] [place] [address] [place] [address] documented as of this encounter Goals Goal [...] documented as of this encounter Results * NEEDLE BIOPSY, LIVER (07/03/2021 9:01 AM THORACIC MEDICINE SPECIALIST) Narrative [facility] - 07/03/2021 9:01 AM THORACIC MEDICINE SPECIALIST Moris Hawk MD ? 07/03/2021 ??9:03 AM ??PERCUTANEOUS LIVER BIOPSY PROCEDURE NOTE Patient Name: Delmi Briseno ??Date: 07/03/2021 Time: 9:02 AM Attending: Moris Hawk MD Fellow: None Diagnosis/Indication: ??RENTERIA, elevated liver stiffness Location: Endoscopy Admission Status: [...] was placed in RNA stabilization solution for [employer] studies in accordance with an IRB approved protocol. Follow-up appointment: As scheduled. I personally performed this procedure. I was present for all portions of this procedure. Moris Hawk MD Moris Leon MD GI PROCEDU RE ORDERABLES [facility] * ENDOSCOPY, COLON, SCREENING (07/03/2021 7:24 AM THORACIC MEDICINE SPECIALIST) Report Endoscopy POC Endoscopy Department Report _ [...] and ?oxygen saturations were monitored continuously. The ?[id number] was introduced through the anus and ?advanced to the cecum, identified by appendiceal ?orifice and ileocecal valve. The colonoscopy was ?performed without difficulty. The patient tolerated ?the procedure well. The quality of the bowel ?preparation was evaluated using the BBPS ([place] ?Bowel Preparation Scale) with scores of: Right [...] The ? polyp was removed with a Jemstep cold forceps. Resection and retrieval ? were [...] Procedure Code(s): ? --- Professional --- ? 66382, Colonoscopy, flexible; with biopsy, single or multiple Diagnosis Code(s): ?--- Professional --- ?Z86.010, Personal history of colonic polyps ?Z98.0, Intestinal bypass and anastomosis status ?K64.0, First degree hemorrhoids ?K63.5, Polyp of colon ?K57.30, Diverticulosis of large intestine without ?perforation or abscess without bleeding CPT copyright 2019 [employer]. All rights reserved. The codes documented in this report are preliminary and upon catering and events manager review may be revised to meet current compliance requirements. Moris Hawk MD 07/03/2021 9:08:27 AM This report has been signed electronically. Note Initiated On: 07/03/2021 7:24 AM Number of Addenda: 0 ? [facility] ? [address] [place] [address] [facility] 07/03/2021 7:24 AM THORACIC MEDICINE SPECIALIST Moris Leon MD GI PROCEDU RE ORDERABLES [facility] documented in this encounter Visit Diagnoses Diagnosis Vcdmz-0-nzerutkbemr deficiency (HCC)- Primary Zglzx-9-bhhkgupgeel deficiency Nonalcoholic steatohepatitis (RENTERIA) Other chronic nonalcoholic liver disease Family history of colon cancer Family history of malignant neoplasm of gastrointestinal tract Family history of colon cancer Family history of malignant neoplasm of gastrointestinal tract Nonalcoholic steatohepatitis (RENTERIA) Other chronic nonalcoholic liver disease documented in this encounter Care Teams Facial Operator Relationship Specialty Start Date End Date Montana Lion MD [address] [place] [address] PCP - General 11/20/15 documented as of this encounter
--- OUTSIDE RECORDS SUMMARY | 2024-08-03 20:30 | XMS_ITS | Encounter Summary ---
Author Organization [facility] Address [address] [facility] [place] [address] Care Team Providers Care Piercer Operator Name Role Phone Montana Lion MD Primary Care Provider [phone] Reason for Visit * Reason Onset Date Comments Pre-op Instructions 06/19/2021 Encounter Details Date Type Department Care Team (Late st Contact Info) Description 06/19/2021 Patient Outreach [facility] [address] [place] [phone] Ashley Rutledge, RN Pre-op Instructions Social History Tobacco Use [...] Telephone Encounter - Ashley Rutledge, RN - 06/19/2021 10:56 AM CHUCKING AND BORING MACHINE OPERATOR Pt confirmed procedure and expressed understanding of all instructions. Pt has a short haul driver, will arrive 1 hour prior to procedure, will hold iron and aspirin for one week prior to procedure, and patientis not on blood thinners. Pt provided number to department for questions or concerns. KING AND BORING MACHINE OPERATOR documented in this encounter Plan of Treatment Upcoming Encounters Date Type Department Care Team (Late st Contact Info) Description 05/02/2025 11:30 AM CDT Procedure visit [facility] - GI [address] [place] [address], [place] [address] 05/02/2025 12:30 PM CDT Office Visit [facility] - GI [address] [place] [address], [place] [address] Moris Leon MD [address] [place] [address] [place] [address] documented as of this encounter Goals Goal [...] on filedocumented in this encounter Care Teams Piercer Operator Relationship Specialty Start Date End Date Montana Lion MD [address] [place] [address] PCP - General 11/20/15 documented as of this encounter
--- OUTSIDE RECORDS SUMMARY | 2024-08-03 20:30 | XMS_ITS | Encounter Summary ---
Author Organization [facility] Address [address] [facility] [place] [address] Care Team Providers Care Dental Appliance Repairer Name Role Phone Montana Lion MD Primary Care Provider [phone] Reason for Referral * Radiology Services (Routine) - Open Specialty Diagnoses / Procedures Referred By Traci t Referred To Contact Diagnoses Metabolic dysfunction-associated steatohepatitis (MASH) Procedures PROC FIBROSCAN Moris Leon MD [address] [place] [address] Referral ID Status Reason Start Date Expiration Date Visits Re quested Visits Authorized [id number] Open 04/29/2024 04/29/2025 1 1 Reason for Visit * Reason Comments Liver Problem MASH (metabolic dysf unction associated steatohepatitis, previously known as VITALE), stage 2 in 1Alpha-1 antitrypsin MZ Encounter Details Date Type Department Care Team (Latest Contact Info) Description 04/29/2024 8:00 AM CDT Office Visit [facility] - GI [address] [place] [address] Moris Tovar MD [address] [place] [address] Metabolic dysfunction-associated steatohepatitis (MASH) (Primary Dx); Juvjr-4-cpvvvzdayob deficiency (HCC) Social History Tobacco Use Types [...] 17 04/29/2024 8:55 AM CDT Oxygen Saturation - - Inhaled Oxygen Concentration - - Weight 102.2 kg (225 lb 3.2 oz) 04/29/2024 8:55 AM CDT Height 157.5 cm (5' 2 ) 04/29/2024 8:55 AM CDT Body Mass Index 41.19 04/29/2024 8:55 AM CDT documented in this encounter Patient Instructions * Patient Instructions* Moris Leon MD - 04/29/2024 9:34 AM CDT How to Contact Us Between Office Visits For emergencies, call [phone]. To make an appointment: Please or , Friday - Friday from 8:00 am - 5:00 pm. To request refills or leave a message for Dr. Hawk: Please use [employer] or call for the nurses in clinic. After hours urgent calls can be handled by the GI fellow radiation safety officer. Please call the hospital operatorat [phone] and identify yourself as a patient of Dr. Hawk's. The polygraph operator will contact the physician radiation safety officer. You can generally expect a return call within 30 minutes. For test and laboratory results: Either send a message through [employer] or contact the clinic nursesat the numbers above. Information about the [employer] [facility], a mfq-gee-xshhnm foundation supporting liver disease research at [facility] can be found at: [email or web address] IMPORTANT 04/29/2024 Instructions from today's visit: The VITALE CRN observational database study is wrapping up and today was your last visit with the study nurse. Your commitment to this study is greatly appreciated. Since you won't need to see the study nurse for study visits at the [facility], Dr. Hawk won't be seeing you at the clinic at the [facility] anymore. He will continue to see you for your continued routine liver care in his Fridayclinic at the [facility] located at [address] [place] [address]. To schedule your next visit with him at that location, please call . If it is more convenient for you to see him at the [facility] location in [place] at [facility] and [address], please call . He is there one Friday per month and there is not a Fibroscan at that location. 2. Continue to find ways to stay active and focus on healthy [...] find that it helps to have a salesforce trainer to provide guidance if you can afford it. 2. Eat healthy foods. Don't diet because just using that word to describe what we eat means that we are depriving ourselves. Just focus on heathy eating in reasonable portion sizes and keep indiscretions to a minimum. Good advice on nutrition can be found on the website for the [place] Healthy Eating Pyramid. Either search for that on the internet or go to: http://www.[facility].[email or web address]/nutritionsource/yemk-mkjyix-ykh-eat/pyramid/ Also, the Mediterranean Diet is a good [...] should limit your dose to no more [id number] mg daily. This means that you should [...] Progress Notes * Moris Leon MD - 04/29/2024 9:16 AM CDT I saw Ms. Briseno in Liver Clinic at the [facility] today for a scheduled visit in followup for Chief Complaint Patient presents with Liver Problem MASH (metabolic dysfunction associated steatohepatitis, previously known as VITALE), stage 2 in 2020 Alpha-1 antitrypsin MZ She is a 68 year old yo female with: Patient Active Problem List: Iron deficiency Metabolic dysfunction-associated steatohepatitis (MASH) Bxsqh-6-qxdipnteuku deficiency (HCC) Obesity Type 2 diabetes mellitus (HCC) Hypertension Osteoarthritis Family history of colon cancer Heartburn Hypercholesterolemia Interim history: No new problems. She reports that her level of energy is okay. For exercise she has been doing an exercise class 3 times a week--aerobics and weights. Walks in neighborhood. Current impediments to regular exercise she reports include no physical issues except a bit of shoulder pain. . She notes no right upper quadrant abdominal pain. Fast food consumption: occasional fried food, mostly home cooking. Sugar sweetened beverage consumption: none. Current Outpatient Medications Medication Sig aspirin EC (ECOTRIN) 81 MG tablet Take 1 (one) tablet by mouth once daily atorvastatin (Lipitor) 80 MG tablet Take 1 (one) tablet by mouth once daily calcium 500 mg tablet Take 1 (one) tablet by mouth once daily Cetirizine HCl (ZYRTEC ALLERGY PO) Take by mouth once daily Coenzyme Q10 (COQ10) 100 MG Take by mouth once daily cyanocobalamin (VITAMIN B-12) 500 MCG tablet Take 1 (one) tablet by mouth once daily fluticasone propionate (Flonase) 50 MCG/ACT nasal spray INSTILL 1-2 SPRAYS INTO EACH NOSTRIL TWICE DAILY. AIM BACK, UP AND OUT ibuprofen (Motrin) 200 MG tablet Take by mouth every 6 hours as needed IRON PO Take 1 tablet by mouth once daily Januvia 25 MG tablet Take 1 (one) tablet by mouth once daily losartan (Cozaar) 100 MG tablet Magnesium 400 MG Take by mouth at bedtime metFORMIN (Glucophage) 1000 MG tablet 2 times daily with morning and evening meal multivitamins (ONE A DAY) capsule Take 1 (one) capsule by mouth nebivolol (Bystolic) 5 MG tablet Take 1 (one) tablet by mouth once daily nystatin (Mycostatin) 646086 UNIT/ML suspension SWISH AND HOLD 5ML BY MOUTH TWICE DAILY THEN SPIT (Patient not taking: Reported on 04/29/2024) omeprazole (PRILOSEC) 20 MG capsule Take 1 (one) capsule by mouth daily before breakfast vitamin D3 (CHOLECACIFEROL) 5000 UNITS Take by [...] History Social History Narrative 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 Lives with . , 3 sons, 6 grandchildren, they live nearby. Review of systems: Chest pain: none. Shortness of breath: none. Dyspnea on exertion: stairs. Snoring at night: yes, no CPAP, no sleep study. Nausea and vomiting: none. Reflux or GERD symptoms: none on PPI. Avoids late meals. Constipation or diarrhea: none. On exam today, she appeared obese, alert and anicteric. I reviewed today's vital signs and discussed weight changes since the last visit with Ms. Briseno. Vitals: 04/29/24 0855 BP: 169/74 Pulse: 51 Resp: 17 Temp: 97.9 ??F (36.6 ??C) Weight: 102.2 kg (225 lb 3.2 oz) Height: 1.575 m (5' 2 ) Body mass index is 41.19 kg/m??. Wt Readings from Last 3 Encounters: 04/29/24 102.2 kg (225 lb 3.2 oz) 05/22/23 102.8 kg (226 lb 9.6 oz) 06/20/22 107.5 kg (237 lb) Affect good. Seen alone. Skin: no spider angiomata. Lungs were clear to auscultation bilaterally. Heart sounds were regular rate and rhythm. There were no murmurs. Abdomen was obese, soft and nontender. Liver edge palpable: no. Spleen palpable: no. Ascites: none. Hernias: none. Pretibial edema: none. Relevant labs and imaging: No recent labs available. 04/29/24 Fibroscan CAP 344, LSM 9.7 kPa Assessment and Plan: MASH (metabolic dysfunction associated steatohepatitis, previously known as VITALE) with early fibrosis in the setting of obesity, T2DM, HTN, hypercholesterolemia and also alpha-1 antitrypsin MZ phenotype Weight stable this year, would be good to lose more. Fibroscan numbers up this year, shows steatosis, moderate probability of advanced fibrosis. Will repeat at her next visit with me in a year. Will see how her LFTs look. She could be a candidate for Romario to treat MASH. Continue to exercise regularly and focus on healthy eating. I have no problem with continued statin use. There is no medical evidence to indicate that preexisting liver disease predisposes to statin hepatotoxicity. Specific recommendations were provided regarding diet and exercise including the avoidance of sugarsweetened beverages. Labwork was obtained today as part of her participation in our multicenter study of patients with steatotic liver disease or cryptogenic cirrhosis. A copy of the results will be sent to her so that she can share them with her other providers. This study will end in mid-2024 and today's visit was her last visit with the study nurses. I will continue to see her for ongoing care for liver disease atmy primary clinic at the [facility]) or at my [facility] location. Hx of iron deficiency Negative EGD in 2014 and colonoscopy in 2020. No recent iron studies available to me. Continues to take oral supplement bid. FH of colon cancer Repeat colonoscopy in 2025. An appointment will be scheduled for her to see me in followup in one year. Letter: JERMAINE Virgen Coding comment: this visit required 26 minutes, of which >50% was spent directly counseling the patient and/or family member(s) on their diagnosis, prognosis, and treatment options as outlined in the assessment and plan above as well as the written instructions in the after visit summary provided to the patient. Orders Placed This Encounter PROC FIBROSCAN Coding Rationale New or est? Established Patient Highest problem complexity: 2 or more stable chronic illnesses Highest level of risk: Moderate Suggested code: 92526 documented in this encounter Plan of Treatment Upcoming Encounters Date Type Department Care Team (Late st Contact Info) Description 05/02/2025 11:30 AM CDT Procedure visit [facility] - [address], [place] [address] 05/02/2025 12:30 PM CDT Office Visit [facility] - [address] [address] Moris Leon MD [address] [place] [address] [place] [address] Scheduled Orders Name Type Priority Associated Diagnoses Orde r Schedule PROC FIBROSCAN Procedures Routine Metabolic dysfunction-associated steatohepatitis (MASH) 1 Occurrences starting 04/29/2024 until 04/29/2025 documented as of this encounter Goals Goal [...] as of this encounter Visit Diagnoses Diagnosis Metabolic dysfunction-associated steatohepatitis (MASH)- Primary Sfqjz-3-gbpbqelngez deficiency (HCC) Iotmh-7-tjdqchpibun deficiency documented in this encounter Care Teams Dental Appliance Repairer Relationship Specialty Start Date End Date Montana Lion MD [address] [place] [address] PCP - General 11/20/15 documented as of this encounter
--- OUTSIDE RECORDS SUMMARY | 2024-08-03 20:30 | XMS_ITS | Encounter Summary ---
Author Organization [facility] Address [address] [facility] [place] [address] Care Team Providers Care Log Brander Name Role Phone Montana Lion MD Primary Care Provider [phone] Encounter Details Date Type Department Care Team (Late Contact Info) Description 04/14/2020 Orders Only [facility] - GI [address] [place] [phone] Alexx Spring, RN Nonalcoholic steatohepatitis (VITALE) Social [...] Description 05/02/2025 11:30 AM CDT Procedure visit [facility] - GI [address] [place] [phone] 05/02/2025 12:30 PM CDT Office Visit [facility] - GI [facility] [place] [address] Moris Leon MD [address] [place] [address] documented as of this encounter Procedures Procedure Name Priority Date/Time Associated Diagnosis Comments CBC W AUTO DIFFERENTIAL Routine 04/20/2020 10:22 AM CDT Nonalcoholic steatohepatitis (VITALE) COMPREHENSIVE METABOLIC PANEL Routine 04/20/2020 10:22 AM CDT Nonalcoholic steatohepatitis (VITALE) IRON + TIBC PANEL Routine 04/20/2020 10: 22 AM CDT Nonalcoholic steatohepatitis (VITALE) documented in this encounter Results * IRON + TIBC PANEL (04/20/2020 10:22 AM CDT) TIBC 357 250 - 450 ug/dL [facility] INSURANCE BILL UIBC 299 118 - 369 ug/dL [facility] INSURANCE BILL Iron 58 27 - 139 ug/dL [facility] INSURANCE BILL Iron Saturation 16 15 - 55 % [facility] INSURANCE BILL Blood BLOOD SPECIMEN / Unknown 04/20/2020 10:22 AM CDT 04/20/2020 Narrative Resulting Agency Comment [facility] [address] [place] [address] ??[facility] [id number] Moris Leon MD LAB - CHEM ISTRY ORDERABLES [facility] INSURANCE BILL [address] [place] [address] * (ABNORMAL) COMPREHENSIVE METABOLIC PANEL (04/20/2020 10:22 [...] Resulting Agency Comment Lab Testing performed at: [address] ??[facility] [id number] Moris Leon MD LAB - CHEM ISTRY ORDERABLES [facility] INSURANCE BILL [address] [place] [address] * CBC WITH DIFFERENTIAL (04/20/2020 10:22 AM CDT) WBC 8.2 3.4 - 10.8 x10E3/uL [facility] [...] Resulting Agency Comment Lab Testing performed at: [facility] [address] ??[facility] [id number] Moris Leon MD LAB - ANI TOLOGY ORDERABLES [facility] INSURANCE BILL [address] [place] [address] documented in this encounter Visit Diagnoses Diagnosis Nonalcoholic steatohepatitis (VITALE)- Primary Other chronic nonalcoholic liver disease documented in this encounter Care Teams Log Brander Relationship Specialty Start Date End Date Montana Lion MD [address] [place] [address] PCP - General 11/20/15 documented as of this encounter
--- OUTSIDE RECORDS SUMMARY | 2024-08-03 20:30 | XMS_ITS | Encounter Summary ---
Author Organization [facility] Address [address] [place] [address] Care Team Providers Care Customer Engineer Name Role Phone Montana Lion MD Primary Care Provider [phone] Reason for Referral * (Routine) - Closed Specialty Diagnoses / Procedures Referred By Contac t Referred To Contact Diagnoses Nonalcoholic steatohepatitis (VITALE) Procedures PROC FIBROSCAN Moris Leon MD [address] [place] [address] Referral ID Status Reason Start Date Expiration Date Visits Re quested Visits Authorized [id number] Closed 11/16/2018 05/15/2019 1 1 Encounter Details Date Type Department Care Team (Late st Contact Info) Description 11/16/2018 Orders Only [facility] GI [address] [place] [address] Moris Parish i, MD [address] [place] [address] Nonalcoholic steatohepatitis (IVTALE) Social History Tobacco Use Types Packs/Day Years [...] Description 05/02/2025 11:30 AM CDT Procedure visit [facility] - [address], [place] [address] 05/02/2025 12:30 PM CDT Office Visit [facility] - GI [address] [place] [address], [place] [address] Moris Leon MD [address] [place] [address] [place] [address] documented as of this encounter Procedures Procedure Name Priority Date/Time Associated Diagnosis Comments PROC FIBROSCAN Routine 11/16/2018 10:41 AM CDT Nonalcoholic steatohepatitis (VITALE) documented in this encounter Results * PROC FIBROSCAN (11/16/2018 10:41 AM CDT) Moris Leon MD PROCEDURE/ MINOR SURGICAL ORDERABLES documented in this encounter Visit Diagnoses Diagnosis Nonalcoholic steatohepatitis (VITALE)- Primary Other chronic nonalcoholic liver disease documented in this encounter Care Teams Customer Engineer Relationship Specialty Start Date End Date Montana Lion MD [address] [place] [address] PCP - General 11/20/15 documented as of this encounter
--- OUTSIDE RECORDS SUMMARY | 2024-08-03 20:31 | XMS_ITS | Encounter Summary ---
Author Organization [facility] Address [address] [place] [address] Care Team Providers Care Caser Name Role Phone Unavailable Primary Care Provider Unavailabl e Reason for Visit * Reason Onset Date Comments Results 09/08/2012 pathology Encounter Details Date Type Department Care Team (Late st Contact Info) Description 09/08/2012 Telephone [facility] [address] [facility] [address] [place] [address] Natalie Aj MD [address] [place] [address] [place] [phone] Results (pathology) Social History Tobacco Use Types Packs/Day Years Used Date Smoking Tobacco: Never Smokeless Tobacco: Never Alcohol Use Standard Drinks/Week Comments No 0 (1 standard drink = 0.6 oz pur e alcohol) Sex and Gender Information Value Date Recorded Sex Assigned at Not on file Gender Identity Not on file Sexual Orientation Not on file documented as of this encounter Miscellaneous Notes * Telephone Encounter - Claudia Dumont - 09/08/2012 3:16 PM PLASTIC SURGERY ASSISTANT Gave pathology results on left needle localized breast biopsy done at [facility] [place] on September 03. Pathology revealed in the left breast tissue localized organizing fat necrosis andcalcifications. States is doing well. No complaints of pain. Set up follow up appointment with Dr. Aj on September 14 at 10:00. Patient voiced understanding. TIC SURGERY ASSISTANT documented in this encounter Plan of Treatment Not on file documented as of this encounter Visit Diagnoses Not on filedocumented in this encounter
--- OUTSIDE RECORDS SUMMARY | 2024-08-03 20:31 | XMS_ITS | Encounter Summary ---
Author Organization [facility] Address [address] [place] [address] Care Team Providers Care Full Stack Software Developer Name Role Phone Unavailable Primary Care Provider Unavailabl e Reason for Referral * Outpatient Services (Routine) - Closed Specialty Diagnoses / Procedures Referred By Traci t Referred To Contact Diagnoses Fat necrosis Procedures MAMMO DIGITAL SCREEN Natalie Brandt MD [address] [facility] [place] [address] Referral ID Status Reason Start Date Expiration Date Visits Re quested Visits Authorized [id number] Closed 09/14/2012 10/15/2013 1 1 G PATCHING MACHINE OPERATOR Reason for Visit * Outpatient Services (Routine) - Closed Specialty Diagnoses / Procedures Referred By Traci aguilar Referred To Contact Diagnoses Fat necrosis Procedures MAMMO DIGITAL SCREEN Natalie Brandt MD [address] [facility] [place] [address] Referral ID Status Reason Start Date Expiration Date Visits Re quested Visits Authorized [id number] Closed 09/14/2012 10/15/2013 1 1 Encounter Details Date Type Department Care Team (Latest Contact Info) Description 09/20/2013 10:30 AM SKOOG PATCHING MACHINE OPERATOR - 09/20/2013 11:59 PM SKOOG PATCHING MACHINE OPERATOR Hospital Encounter [facility] [place] [address] [place] [id number] Natalie Aj MD [address] [place] [phone] Discharge Disposition: Home or Self Care Social [...] on file documented as of this encounter Medications at Time of Discharge Medication Sig Dispensed Refills Start Date End Date MULTIVITAMIN ORAL Take by mouth. simvastatin (ZOCOR) 40 mg Oral tablet Take 40 mg by mouth Daily LATE. metFORMIN (GLUCOPHAGE) 1,000 mg Oral tablet Take 1,000 mg by mouth 2 times daily with meals. CETIRIZINE HCL (ZYRTEC ORAL) Take by mouth. Magnesium 500 mg Oral Tab Take by mouth. OMEGA-3 FATTY ACIDS (FISH OIL ORAL) Take by mouth. traZODone (DESYREL) 50 mg Oral tablet Take 50 mg by mouth daily at bedtime. documented as of this encounter Plan of Treatment Not on file documented as of this encounter Procedures Procedure Name Priority Date/Time Associated Diagnosis Comments MAMMO SCREEN BILAT W OR WO CAD Routine 09/20/2013 10:52 AM SKOOG PATCHING MACHINE OPERATOR Fat necrosis documented in this encounter Results * MAMMO DIGITAL SCREEN BILAT (09/20/2013 10:52 AM SKOOG PATCHING MACHINE OPERATOR) Anatomical Region Laterality Modality Breast Bilateral Mammography 09/20/2013 10:5 0 AM SKOOG PATCHING MACHINE OPERATOR Narrative 09/21/2013 5:59 PM SKOOG PATCHING MACHINE OPERATOR BILATERAL FULL FIELD DIGITAL SCREENING MAMMOGRAM WITH CAD. 09/20/13 HISTORY: Routine Screening. TECHNIQUE: Full field digital screening mammography of both breasts were obtained. COMPARISON: Comparison is made to previous outside exams from [facility] dating back to March 2009 BREAST PARENCHYMAL COMPOSITION: Almost entirely fat FINDINGS: No new dominant masses, suspicious calcifications, parenchymal asymmetry or areas of architectural distortion are identified in either breast. Since the prior study, there has been no significant interval change. The computer aided detection system was utilized. OVERALL ASSESSMENT: ??BI-RADS category 1: Negative. RECOMMENDATION: Annual mammography is recommended. [facility] Procedure Note Bertrand Bhakta MD - 09/21/2013 BILATERAL FULL FIELD DIGITAL SCREENING MAMMOGRAM WITH CAD. 09/20/13 HISTORY: Routine Screening. TECHNIQUE: Full field digital screening mammography of both breasts were obtained. COMPARISON: Comparison is made to previous outside exams from [facility] dating back to March 2009 BREAST PARENCHYMAL COMPOSITION: Almost entirely fat FINDINGS: No new dominant masses, suspicious calcifications, parenchymal asymmetry or areas of architectural distortion are identified in either breast. Since the prior study, there has been no significant interval change. The computer aided detection system was utilized. OVERALL ASSESSMENT: BI-RADS category 1: Negative. RECOMMENDATION: Annual mammography is recommended. 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
--- OUTSIDE RECORDS SUMMARY | 2024-08-03 20:31 | XMS_ITS | Encounter Summary ---
Author Organization [facility] Address [address] [place] [address] Care Team Providers Care Provider Network Analyst Name Role Phone Unavailable Primary Care Provider Unavailabl e Encounter Details Date Type Department Care Team (Latest Contact Info) Description 08/31/2012 12:20 PM HEAD IRRIGATOR - 08/31/2012 11:[address] [facility] Hospital Encounter [facility] Laboratory Services [address] [place] [phone] Natalie Aj MD [address] [place] [phone] Discharge Disposition: Home or Self Care Social [...] 50 mg by mouth daily at bedtime. aspirin (SOO) 81 mg Oral Tab Take by mouth. 09/03/2012 documented as of this encounter Plan of Treatment Not on file documented as of this encounter Visit Diagnoses Not on filedocumented in this encounter
--- OUTSIDE RECORDS SUMMARY | 2024-08-03 20:31 | XMS_ITS | Encounter Summary ---
Author Organization [facility] Address [address] [place] [address] Care Team Providers Care Scrap Wheeler Name Role Phone Unavailable Primary Care Provider Unavailabl e Reason for Visit * Reason Onset Date Comments Breast Exam, Routine, No Symptoms 09/22/2014 SCREENING MAMM Encounter Details Date Type Department Care Team (Late st Contact Info) Description 09/22/2014 Patient Outreach [facility] [address] [address] [facility] [address] [place] [address] Natalie Aj MD [address] [place] [phone] Breast Exam, Routine, No Symptoms (SCREENING MAMM) Social History Tobacco Use Types Packs/Day Years [...] encounter Miscellaneous Notes * Telephone Encounter - Leydi Hood - 09/22/2014 3:38 PM CST PT REMINDED OF SCREENING MAMM PRIOR TO DR LUNA TIVE DEVELOPER documented in this encounter Plan of Treatment Not on file documented as of this encounter Visit Diagnoses Not on filedocumented in this encounter
--- OUTSIDE RECORDS SUMMARY | 2024-08-03 20:31 | XMS_ITS | Encounter Summary ---
Author Organization [facility] Address [address] [place] [address] Care Team Providers Care Dust Control Engineer Name Role Phone Unavailable Primary Care Provider Unavailabl e Encounter Details Date Type Department Care Team (Late st Contact Info) Description 09/16/2012 Orders Only [facility] BREAST SURGERY - CLY[place] [facility] [address] [facility] [address] [place] [address] Provider, Abstract NO ADDRESS ON FILE Social History Tobacco Use Types Packs/Day Years Used Date Smoking Tobacco: Never Smokeless Tobacco: Never Alcohol Use Standard Drinks/Week Comments No 0 (1 standard drink = 0.6 oz pur e alcohol) Sex and Gender Information Value Date Recorded Sex Assigned at Not on file Gender Identity Not on file Sexual Orientation Not on file documented as of this encounter Plan of Treatment Not on file documented as of this encounter Procedures Procedure Name Priority Date/Time Associated Diagnosis Comments MAMMO DIAGNOSTIC UNI LEFT W OR WO CAD Routine 07/24/2012 MAMMO SCREEN BILAT W OR WO CAD Routine 07/20/2012 MAMMO SCREEN BILAT W OR WO CAD Routine 07/06/2012 MAMMO SCREEN BILAT W OR WO CAD Routine 06/24/2011 MAMMO SCREEN BILAT W OR WO CAD Routine 05/23/2010 MAMMO DIAGNOSTIC UNI LEFT W OR WO CAD Routine 04/25/2009 MAMMO SCREEN BILAT W OR WO CAD Routine 03/31/2009 documented in this encounter Results * MAMMO DIGITAL DIAG UNI LEFT (07/24/2012) Anatomical Region Laterality Modality Breast Left Other Abstract Provider MAMMO ORDERABLES * (ABNORMAL) MAMMO DIGITAL SCREEN BILAT (07/20/2012) Anatomical Region Laterality Modality Breast Bilateral Other Abstract Provider MAMMO ORDERABLES * (ABNORMAL) MAMMO DIGITAL SCREEN BILAT (07/06/2012) Anatomical Region Laterality Modality Breast Bilateral Other Abstract Provider MAMMO ORDERABLES * MAMMO DIGITAL SCREEN BILAT (06/24/2011) Anatomical Region Laterality Modality Breast Bilateral Other Abstract Provider MAMMO ORDERABLES * MAMMO DIGITAL SCREEN BILAT (05/23/2010) Anatomical Region Laterality Modality Breast Bilateral Other Abstract Provider MAMMO ORDERABLES * MAMMO DIGITAL DIAG UNI LEFT (04/25/2009) Anatomical Region Laterality Modality Breast Left Other Abstract Provider MAMMO ORDERABLES * (ABNORMAL) MAMMO DIGITAL SCREEN BILAT (03/31/2009) Anatomical Region Laterality Modality Breast Bilateral Other Abstract Provider MAMMO ORDERABLES documented in this encounter Visit Diagnoses Not on filedocumented in this encounter
--- OUTSIDE RECORDS SUMMARY | 2024-08-03 20:31 | XMS_ITS | Encounter Summary ---
Author Organization [facility] Address [address] [place] [address] Care Team Providers Care Salesperson Furs Name Role Phone Unavailable Primary Care Provider Unavailabl e Reason for Referral * Outpatient Services (Routine) - Closed Specialty Diagnoses / Procedures Referred By Traci aguilar Referred To Contact Diagnoses Diffuse cystic mastopathy Procedures MAMMO DIGITAL SCREEN Natalie Brandt MD [address] [facility] [place] [address] Referral ID Status Reason Start Date Expiration Date Visits Re quested Visits Authorized [id number] Closed 09/20/2013 10/21/2014 1 1 DAMAGE PREVENTION TECHNICIAN Reason for Visit * Outpatient Services (Routine) - Closed Specialty Diagnoses / Procedures Referred By Traci aguilar Referred To Contact Diagnoses Diffuse cystic mastopathy Procedures MAMMO DIGITAL SCREEN Natalie Brandt MD [address] [facility] [place] [address] Referral ID Status Reason Start Date Expiration Date Visits Re quested Visits Authorized [id number] Closed 09/20/2013 10/21/2014 1 1 Encounter Details Date Type Department Care Team (Latest Contact Info) Description 09/26/2014 10:19 AM SITE DAMAGE PREVENTION TECHNICIAN - 09/26/2014 11:59 PM SITE DAMAGE PREVENTION TECHNICIAN Hospital Encounter [facility] [address] [place] [phone] Natalie Aj MD [address] [place] [address] Discharge Disposition: Home or Self Care [...] Sig Dispensed Refills Start Date End Date losartan (COZAAR) 50 mg tabletIndications:Diffuse cystic mastopathy, unspecified laterality 08/01/2014 KOMBIGLYZE XR 2.5-1,000 mg Extended Release 24 hour tabletIndications:Diffuse cystic mastopathy, unspecified laterality 08/15/2014 MULTIVITAMIN ORAL Take by mouth. simvastatin (ZOCOR) [...] 50 mg by mouth daily at bedtime. atorvastatin (LIPITOR) 10 mg tabletIndications:Diffuse cystic mastopathy, unspecified laterality 08/15/201410/14 documented as of this encounter Plan of Treatment Not on file documented as of this encounter Procedures Procedure Name Priority Date/Time Associated Diagnosis Comments MAMMO SCREEN BILAT W OR WO CAD Routine 09/26/2014 10:44 AM SITE DAMAGE PREVENTION TECHNICIAN Diffuse cystic mastopathy documented in this encounter Results * MAMMO DIGITAL SCREEN BILAT (09/26/2014 10:44 AM SITE DAMAGE PREVENTION TECHNICIAN) Anatomical Region Laterality Modality Breast Bilateral Mammography 09/26/2014 10:4 4 AM SITE DAMAGE PREVENTION TECHNICIAN Narrative 09/26/2014 3:55 PM SITE DAMAGE PREVENTION TECHNICIAN BILATERAL FULL FIELD DIGITAL SCREENING MAMMOGRAM WITH CAD DATE: 09/26/14 HISTORY: Routine screening. TECHNIQUE: Full field digital craniocaudal and mediolateral oblique projections of both breasts were obtained. Computer aided diagnosis was performed. COMPARISON: ??09/20/2013 and older BREAST PARENCHYMAL COMPOSITION: Predominantly fatty. FINDINGS: No suspicious mass, suspicious microcalcifications, or architectural distortion is identified in either breast. Since the prior study, there has been no significant interval change. Computer aided detection was used in the interpretation of this examination. OVERALL ASSESSMENT: BI-RADS Category 1: Negative. RECOMMENDATION: Annual mammography is recommended. ?? Dictated from [facility] Procedure Note Apple Ruff MD - 09/26/2014 BILATERAL FULL FIELD DIGITAL SCREENING MAMMOGRAM WITH CAD DATE: 09/26/14 HISTORY: Routine screening. TECHNIQUE: Full field digital craniocaudal and mediolateral oblique projections of both breasts were obtained. Computer aided diagnosis was performed. COMPARISON: 09/20/2013 and older BREAST PARENCHYMAL COMPOSITION: Predominantly fatty. FINDINGS: No suspicious mass, suspicious microcalcifications, or architectural distortion is identified in either breast. Since the prior study, there has been no significant interval change. Computer aided detection was used in the interpretation of this examination. OVERALL ASSESSMENT: BI-RADS Category 1: Negative. RECOMMENDATION: Annual mammography is recommended. Dictated from [facility] Natalie Aj MD MAMMO ORDERABLES documented in this encounter Visit Diagnoses Diagnosis Diffuse cystic mastopathy documented in this encounter
--- OUTSIDE RECORDS SUMMARY | 2024-08-03 20:31 | XMS_ITS | Encounter Summary ---
Author Organization [facility] Address [address] [place] [address] Care Team Providers Care Machine Stoppage Frequency Checker Name Role Phone Montana Lion MD Primary Care Provider [phone] Reason for Referral * Outpatient Services (Routine) - Closed Specialty Diagnoses / Procedures Referred By Glennac t Referred To Contact Diagnoses Diffuse cystic mastopathy, unspecified laterality Procedures MAMMO DIGITAL SCREEN Natalie Brandt MD [address] [facility] [place] [address] Referral ID Status Reason Start Date Expiration Date Visits Re quested Visits Authorized [id number] Closed 09/26/2014 10/27/2015 1 1 CTOR SPECIAL EDUCATION Reason for Visit * Outpatient Services (Routine) - Closed Specialty Diagnoses / Procedures Referred By Contruma t Referred To Contact Diagnoses Diffuse cystic mastopathy, unspecified laterality Procedures MAMMO DIGITAL SCREEN Natalie Brandt MD [address] [facility] [place] [address] Referral ID Status Reason Start Date Expiration Date Visits Re quested Visits Authorized [id number] Closed 09/26/2014 10/27/2015 1 1 Encounter Details Date Type Department Care Team (Latest Contact Info) Description 10/09/2015 10:27 AM DIRECTOR SPECIAL EDUCATION - 10/09/2015 11:59 PM DIRECTOR SPECIAL EDUCATION Hospital Encounter [facility] [address] [place] [address] Natalie Aj MD [address] [place] [phone] Discharge Disposition: Home or Self Care [...] SCREEN BILAT W OR WO CAD Routine 10/09/2015 10:45 AM DIRECTOR SPECIAL EDUCATION Diffuse cystic mastopathy, unspecified laterality documented in this encounter Results * MAMMO DIGITAL SCREEN BILAT (10/09/2015 10:45 AM DIRECTOR SPECIAL EDUCATION) Anatomical Region Laterality Modality Breast Bilateral Mammography Narrative 10/09/2015 11:39 AM DIRECTOR SPECIAL EDUCATION BILATERAL FULL-FIELD DIGITAL SCREENING MAMMOGRAM WITH COMPUTER AIDED DIAGNOSIS History: ??Annual screening exam. Technique: ??A bilateral full-field digital screening mammogram was performed. ??Computer aided detection was utilized. Comparison is made with the prior studies dated: ??09/20/2013 Breast Composition: ??Scattered fibroglandular densities. Findings: ??No new dominant masses, areas of asymmetry, or suspicious clustered calcifications are identified within either breast. ??The overall breast parenchymal pattern is stable since the prior exam. ??CAD was utilized. Overall Assessment: ??Birads Category 1: ??Negative Recommendation: ??Annual mammography is recommended. Natalie Aj MD MAMMO ORDERABLES documented in this encounter Visit Diagnoses Diagnosis Diffuse cystic mastopathy, unspecified laterality documented in this encounter Care Teams Machine Stoppage Frequency Checker Relationship Specialty Start Date End Date Montana Lion MD [address] [place] [address] PCP - General Family Practice 10/03/15 documented as of this encounter
--- OUTSIDE RECORDS SUMMARY | 2024-08-03 20:31 | XMS_ITS | Encounter Summary ---
Author Organization [facility] Address [address] [place] [address] Care Team Providers Care Photo Colorer Name Role Phone Unavailable Primary Care Provider Unavailabl e Reason for Visit * Auth/Cert - Closed Specialty Diagnoses / Procedures Referred By Contac t Referred To Contact General Surgery Diagnoses ABNORMAL MAMMOGRAM Procedures BREAST BIOPSY [facility] [address] [place] [address] Referral ID Status Reason Start Date Expiration Date Visits Re quested Visits Authorized [id number] Closed 1 1 Encounter Details Date Type Department Care Team (Late st Contact Info) Description 09/03/2012 11:00 AM JOINERY PATTERNMAKER - 09/03/2012 12:00 PM JOINERY PATTERNMAKER Surgery [facility] [address] [place] [address] Natalie Aj MD [address] [place] [address] [place] [id number] BREAST BIOPSY Surgery Details Date/Time Status Location OR Service Patient Class Case Class Case Type Trauma Case? 09/03/2012 11:00 AM Posted [facility] CC OR CC OR 02 General Surgery Surgical OP/Extended Care Elective No Panel 1 Procedure LRB Anes Op Region Wound Class Comments BREAST BIOPSY Left Monitored Anesthetic Care Breast Clean-I Surgeon Surgeon Role Service Panel Natalie Aj MD Primary General Surgery 1 documented in this encounter Social History Tobacco Use Types Packs/Day Years Used Date Smoking Tobacco: Never Smokeless Tobacco: Never Alcohol Use Standard Drinks/Week Comments No 0 (1 standard drink = 0.6 oz pur e alcohol) Sex and Gender Information Value Date Recorded Sex Assigned at Not on file Gender Identity Not on file Sexual Orientation Not on file documented as of this encounter Last Filed Vital Signs Vital Sign Reading Time Taken Comments Blood Pressure 138/83 09/03/2012 11:45 AM JOINERY PATTERNMAKER Pulse 59 09/03/2012 9:18 AM JOINERY PATTERNMAKER Temperature 36.4 ??C (97.6 ??F) 09/03/2012 11:[address] Respiratory Rate 17 09/03/2012 11:45 AM JOINERY PATTERNMAKER Oxygen Saturation 100% 09/03/2012 11:45 AM JOINERY PATTERNMAKER Inhaled Oxygen Concentration - - Weight 109.3 kg (241 lb) 09/03/2012 9:18 AM JOINERY PATTERNMAKER Height 157.5 cm (5' 2 ) 09/01/2012 3:00 PM JOINERY PATTERNMAKER Body Mass Index 44.08 09/01/2012 3:00 PM JOINERY PATTERNMAKER documented in this encounter Discharge Instructions * Discharge Instructions* Natalie Aj MD - 09/03/2012 11:58 AM JOINERY PATTERNMAKER [facility] [address] [place] [address] POST BREAST BIOPSY INSTRUCTIONS ACTIVITY: No restrictions No strenuous activity Do not make important personal or business decisions for [address] operate hazardous machinery while taking pain medications No heavy lifting for 2 days Other MEDICATIONS: Prescription given percvocet Other DIET: No restrictions FOLLOW UP: Call for appointment Office visit. Date: Time:____ SPECIAL INSTRUCTIONS: Ice on incision as needed May shower tomorrow Remove dressing tomorrow or as needed Leave steri strips in place May wear a bra for support (physician/date) (patient/date) (nurse/date) Natalie Aj MD ERY PATTERNMAKER documented in this encounter Medications at Time [...] at bedtime. documented as of this encounter H&P Notes * Natalie Aj MD - 09/03/2012 11:55 AM CST I have reviewed the last H&P and examined the patient today and there are no changes. ERY PATTERNMAKER * Natalie Aj MD - 09/01/2012 10:55 AM CST Delmi Miranda is a 56 y.o. female. She is referred by Dr Mace because of abnormal left mammogram showing calcifications for which six-month followup has been recommended to document stability.She has no complaints referable to her breasts. She denies prior breast surgeries or biopsies. She is 3, para 3. She was 14 at menarche and 23 at first live . In maternal grandmother hadbreast cancer at age of 60. 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 She is . She drinks rarely and does not smoke. She is here today with her . APPLICATION SECURITY CONSULTANT HX: OB History Grav Para Term Abortions TAB SAB Ect Mult Living 3 3 Obstetric Comments Age @ onset of menses:14 Age @ first live : 23 PMH: Past Medical History Diagnosis Date ??? Diabetes mellitus ??? HTN (hypertension) PSH: Past Surgical History Procedure Date ??? Hx cholecystectomy 2006 ??? Hx hemicolectomy 2008 ALLERGY: Allergies Allergen Reactions ??? Sulfa(Sulfonamide Antibiotics) Hives MEDS: Current Outpatient Prescriptions Medication Sig Dispense Refill ??? MULTIVITAMIN ORAL Take by mouth. ??? simvastatin (ZOCOR) 40 mg Oral tablet Take 40 mg by mouth Daily LATE. ??? metFORMIN (GLUCOPHAGE) 1,000 mg Oral tablet Take 1,000 mg by mouth 2 times daily with meals. ??? CETIRIZINE HCL (ZYRTEC ORAL) Take by mouth. ??? aspirin (SOO) 81 mg Oral Tab Take by mouth. ??? Magnesium 500 mg Oral Tab Take by mouth. ??? OMEGA-3 FATTY ACIDS (FISH OIL ORAL) Take by mouth. ??? traZODone (DESYREL) 50 mg Oral tablet Take 50 mg by mouth daily at bedtime. ??? losartan (COZAAR) 25 mg Oral tablet Take 25 mg by mouth daily. FHX: Family History Problem Relation Age of Onset ??? Cancer Father ??? Stroke Father ??? Breast Cancer Maternal Grandmother 60 SOC: History Social History ??? Marital Status: Spouse Name: N/A Number of Children: N/A ??? Years of Education: N/A Occupational History ??? Not on file. Social History Main Topics ??? Smoking status: Never Smoker ??? Smokeless tobacco: Never Used ??? Alcohol Use: No ??? Drug Use: No ??? Sexually Active: Other Topics Concern ??? Not on file Social History Narrative ??? No narrative on file ROS: Constitutional: Negative for fever, weight loss and malaise/fatigue. Respiratory: Negative for cough. Cardiovascular: Negative for chest pain and leg swelling. + hypertension Gastrointestinal:. Negative for abdominal pain. +colon resection for benign disease Genitourinary: Negative for dysuria. Musculoskeletal: Negative for myalgias and joint pain. Skin: Negative for rash. Neurological: Negative for dizziness and headaches. Psychiatric/Behavioral: Negative for depression Endocrine: + diabetes, negative for thyroid dysfunction Hematologic: Negative for anemia, bleeding disorders, HIV/AIDS BP 163/82 Ht 5' 2 (1.575 m) Wt 243 lb (110.224 kg) BMI 44.45 kg/m2 PHYSICAL EXAM: Well-developed, well-nourished, pleasant woman. Neck - no thyromegaly no cervical adenopathy SCF- no adenopathy Chest - clear to auscultation Cardiovascular - regular rate and rhythm Axilla -no adenopathy Breasts - Right breast:normal in appearance, no masses, skin changes or nipple discharge Left breast: normal in appearance, no masses, skin changes or nipple discharge Abdomen - liver and spleen not palpably enlarged Extremities - Good range of motion of shoulders, no lymphedema present IMAGING: outside films are reviewed. Mammogram: July 06, 2005 and July 24, [address] [facility] in [facility]. New cluster of calcifications upper-outer left breast. IMPRESSION /PLAN: 56 y.o. woman presents with abnormal left mammogram showing cluster of calcifications upper outer left breast I reviewed the mammograms with Dr. Giles and because this cluster is relatively new, a biopsy is recommended We discussed stereotactic core biopsy versus excisional biopsy using needle localizing wire placement She is not a good candidate for stereotactic biopsy given the superficial nature of these calcifications So we discussed surgical excision I discussed needle localization and open surgical biopsy as an outpatient. I explained local anesthesia for the localization and intravenous sedation for the biopsy. I described additional long acting local anesthesia and making an incision in the breast to remove the area. Benefits, risks, and alternatives were discussed including infection, bleeding, scarring, deformity, pain, and inability to remove the area in question. We talked about postop instructions. We discussed followup. I answered any questions. Patient indicated understanding and wish to proceed. Left needle localized excisional breast biopsy Natalie Aj M.D. ERY PATTERNMAKER documented in this encounter OR Notes * OR Anesthesia - Mary Jo Schmitt - 09/08/2012 7:27 PM CST ERY PATTERNMAKER * OR Anesthesia - Velvet Peng MD - 09/03/2012 12:07 PM CST Phase II Postanesthesia Evaluation Including [facility] [place] Score Patient seen and evaluated: [facility] [place] Score: Score: 19 (09/03/12 1153) COMMENTS: No apparent Anesthesia related complications RESPIRATORY FUNCTION: Respiration: able to breath and cough freely (09/03/121152) [2=able to breathe and cough freely, 1=dyspnea, limited breathing or tachypnea, 0=apnea or mechanicventilator] O2 Saturation: able to maintain O2 saturation greater than 92% on room air (09/03/121152) [2=able to maintain O2 saturation greater than 92% on room air, 1=needs O2 inhalation to maintain O2 saturation greater than 90%, 0=O2 saturation less than 90% even with O2 supplement] Resp: 17 (09/03/121144)SpO2: 100 % (09/03/121144) CARDIOVASCULAR FUNCTION: Heart Rate (Monitored): 77 bpm (09/03/121144) BP: 138/83 mmHg (09/03/121144) Circulation: BP within 20% of preanesthetic level (09/03/121152) [2=BP within 20% of preanesthetic level, 1=BP within 20-49% of preanesthetic level, 0=BP within 50%of preanesthetic level] MENTAL STATUS, NEURO, ACTIVITY: Consciousness: fully awake (09/03/121152) [2=fully awake, 1=arousable on calling, 0=not responding] Activity: able to move 4 extremities voluntarily or on command (09/03/121152) [2=able to move 4 extremities voluntarily or on command, 1=able to move 2 extremities voluntarily or on command, 0=unable to move extremities voluntarily or on command] Ambulation: able to stand up and walk straight, on ordered bedrest, or performing at patient's prior level of function (09/03/121152) [2=able to stand up and walk straight, on ordered bedrest, or performing at patient's prior level of function, 1=vertigo when erect, 0=dizziness when supine] TEMPERATURE: Temp: 97.6 ??F (36.4 ??C) (09/03/121138) PAIN: Pain Rating: Rest: 0 (09/03/121138) Presence of Pain: denies pain/discomfort (09/03/121138) Pain: pain free (09/03/121152) [2=pain free, 1=pain handled by oral medication, 0=pain requiring parenteral medication] NAUSEA AND VOMITING: Fasting/Feeding: able to drink fluids, ice chips or NPO (09/03/12 1153) [2=able to drink fluids, ice chips or NPO, 1=nauseated, 0=nausea and vomiting] POSTOPERATIVE HYDRATION: Intake/Output Summary (Last 24 hours) at 09/03/12 1207 Last data filed at 09/03/12 1151 Gross per 24 hour Intake 222 ml Output 0 ml Net 222 ml Urine Output: unable to void but comfortable (09/03/12 1153) [2=has voided, adequate urine output per device, or not applicable, 1=unable to void but comfortable, 0=unable to void and uncomfortable] WOUND: Dressing: dry and clean or not applicable (09/03/12 1153) [2=dry and clean or not aplicable, 1=wet, marked and not increasing, 0=growing area of wetness] Velvet Peng MD 09/03/2012 12:07 PM ERY PATTERNMAKER * Operative Report - Natalie Aj MD - 09/03/2012 11:55 AM CST DATE OF SERVICE: 09/03/2012 SURGEON Natalie Aj MD PREOPERATIVE DIAGNOSIS Calcifications left breast POSTOPERATIVE DIAGNOSIS Same OPERATION NAME Left needle localized excisional breast biopsy ANESTHESIA MAC ANESTHESIOLOGIST Dr Peng; Brook Longoria [facility] DIRECT SUPPORT SPECIALIST Fabian Torres Indications for surgery. 56 y.o. year old female with calcifications on imaging. They are too superficial for core biopsy. Informed consent was obtained for needle localization and excision. Risks benefits of surgery discussed with her. She underwent needle localization without incident. Bilateral lower extremity sequential devices were applied. She was brought into the operating room, placed on table in supine position. She was prepped, draped sterilely. Operation: After induction of IV sedation, the skin was anesthetized with 1% lidocaine and 0.25% Marcaine. Curvilinear incision was made in the periareolar left breast. Incision was carried through the skin, through subcutaneous tissue. The wire is brought into the operative field. Using cautery, subcutaneoustissue is further divided until the the thickened portion of the wire is exposed. The nodule and surrounding breast tissue was then excised widely. Specimen is tagged long for lateral and short for superior for orientation. It was sent to radiology and we received confirmation that the calcifications had been removed. The specimen was then sent to pathology. Palpation revealed no additional abnormalities. Hemostasis was obtained meticulously using cautery. Surgicel was applied for further hemostasis. Wound was irrigated copiously and reapproximated using interrupted 3-0 Vicryl suture followedby 4-0 running Monocryl subcuticular closure. Steri-Strips were applied. Compression dressing applied using Kerlix and John wrap. She tolerated the surgery. All needles, instrument, sponge counts correct. No complications. Blood loss minimal. Estimated blood loss: 3cc Specimens: calcifications left breast Drains: none She was taken to recovery in good condition ERY PATTERNMAKER * Darlin-OP - Seema Hamilton RN - 09/03/2012 11:30 AM CST 1% Lidocaine PL 12 MLs Injected per , 0.[address] 12 MLs inj per MD 0.9% Sodium Chloride for Irrigation ERY PATTERNMAKER * OR Anesthesia - Velvet Peng MD - 09/03/2012 9:29 AM CST Pre-Anesthesia Evaluation - Long Form 09/03/2012 9:29 AM Name: Delmi Miranda Age: 56 y.o. Sex: female CSN: [id number] Procedure: Procedure(s): BREAST BIOPSY Surgeons/Assistants: Surgeon(s) and Role: * Natalie Aj MD - Primary Allergies Allergen Reactions ??? Adhesive Rash ??? Sulfa (Sulfonamide Antibiotics) Hives Prescriptions prior to admission Medication Sig Dispense Refill ??? simvastatin (ZOCOR) 40 mg Oral tablet Take 40 mg by mouth Daily LATE. ??? metFORMIN (GLUCOPHAGE) 1,000 mg Oral tablet Take 1,000 mg by mouth 2 times daily with meals. ??? traZODone (DESYREL) 50 mg Oral tablet Take 50 mg by mouth daily at bedtime. ??? losartan (COZAAR) 25 mg Oral tablet Take 25 mg by mouth daily. ??? MULTIVITAMIN ORAL Take by mouth. ??? CETIRIZINE HCL (ZYRTEC ORAL) Take by mouth. ??? aspirin (SOO) 81 mg Oral Tab Take by mouth. ??? Magnesium 500 mg Oral Tab Take by mouth. ??? OMEGA-3 FATTY ACIDS (FISH OIL ORAL) Take by mouth. Current Facility-Administered Medications Medication Dose Route Frequency Provider Last Rate Last Dose ??? lactated ringers solution IV Post-Proc Continuous Velvet Peng MD ??? fentaNYL PF (SUBLIMAZE) 50 mcg/mL injection 25 mcg 25 mcg IV Post-Proc q 3 min PRN Velvet Peng MD ??? ondansetron (ZOFRAN) 4 mg/2 mL injection 4 mg 4 mg IV Post-Proc Once PRN Velvet Peng MD ??? lactated ringers solution IV Pre-Proc Continuous Natalie Aj MD ??? lidocaine PF 2 % (XYLOCAINE MPF) injection 0.3 mL 0.3 mL Intradermal Pre- Proc Once Natalie Aj MD Patient Active Problem List Diagnoses Date Noted ??? Abnormal mammogram, unspecified 08/31/2012 ??? Diabetes mellitus ??? HTN (hypertension) Past Medical History Diagnosis Date ??? Diabetes mellitus ??? HTN (hypertension) ??? Hyperlipidemia ??? Unspecified adverse effect of anesthesia nausea/vomiting Past Surgical History Procedure Date ??? Hx cholecystectomy 2006 ??? Hx hemicolectomy 2008 ??? Hx section x3 History Substance Use Topics ??? Smoking status: Never Smoker ??? Smokeless tobacco: Never Used ??? Alcohol Use: No Family History Problem Relation Age of Onset ??? Cancer Father ??? Stroke Father ??? Breast Cancer Maternal Grandmother 60 Previous Anesthesia Problems/Concerns: No anesthesia problems/complications History of PONV No Review of Systems Cardiovascular: HTN, denies chest pain or shortness of breath Respiratory: Mild snoring, denies SUDHIR, ASthma Gastroenterology: negative PHYSICAL EXAM Ht 5' 2 (1.575 m) Wt 240 lb (108.863 kg) BMI 43.90 kg/m2 Weight: Weight: 240 lb (108.863 kg) (09/01/12 1500) Height: Ht Readings from Last 1 Encounters: 09/01/12 5' 2 (1.575 m) BMI: Body mass index is 43.90 kg/(m^2). Airway: normal range of motion: Airway Class: II (soft palate, uvula, fauces visible); None Lungs: clear to auscultation bilaterally, normal respiratory effort Heart: regular rate and rhythm, S1, S2 normal, no murmur, click, rub or gallop Neuro: alert, oriented x 3, no defects noted in general exam. Vascular Access: Peripheral Line LABS No results found for this basename: WBC, MANUALWBC, HGB, HGBPOC, HCT, HCTPOC, PLT, MCV No results found for this basename: NA, K, CL, CO2, CA, BUN, CREAT, GLUCOSE, ANIONGAP, BCRATIO No results found for this basename: INR, PT, PROTIMEPOC No results found for this basename: HCGURPOC, HCGQUALUR, HCGQUAL, HCGQUANT, HCGINTACT No results found for this basename: glucpoc EKG: normal sinus rhythm Other Studies/Considerations: None Postop pain management discussed yes Smoking/Tobacco Counseling: None Recommendations: None ASA Physical Status: ASA 2 - Patient with mild systemic disease with no functional limitations I have seen and examined this patient and confirm that all data is current and accurate. Yes Choice of Anesthesia/Anesthesia Plan: Proceed, Monitored Anesthesia Care and Routine Monitoring I have discussed the anesthetic options and the risks/benefits with the patient/family. Questions have been solicited and answered. Yes Velvet Peng MD ERY PATTERNMAKER documented in this encounter Miscellaneous Notes * Scanned Form - Scanning, Stl - 09/08/2012 7:27 PM CST Electronically signed by Audrey [facility] Network Development Coordinator Incoming at 09/08/2012 7:27 PM JOINERY PATTERNMAKER * Scanned Form - Scanning, Stl - 09/08/2012 7:27 PM CST Electronically signed by Interface, [facility] Network Development Coordinator Incoming at 09/08/2012 7:27 PM JOINERY PATTERNMAKER * Scanned Form - Scanning, Stl - 09/08/2012 7:27 PM CST Electronically signed by Interface [facility] Network Development Coordinator Incoming at 09/08/2012 7:27 PM JOINERY PATTERNMAKER * Patient Instructions - Scanning, Stl - 09/08/2012 7:27 PM CST Electronically signed by Interface, [facility] Network Development Coordinator Incoming at 09/08/2012 7:27 PM JOINERY PATTERNMAKER documented in this encounter Plan of Treatment Not on file documented as of this encounter Procedures Procedure Name Priority Date/Time Associated Diagnosis Comments MAMMO BREAST SPECIMEN LT Routine 09/03/2012 12:09 PM JOINERY PATTERNMAKER Abnormal mammogram, unspecified PATHOLOGY Routine 09/03/2012 11:21 AM JOINERY PATTERNMAKER BREAST BIOPSY 09/03/2012 10:30 AM JOINERY PATTERNMAKER ABNORMAL MAMMOGRAM POC GLUCOSE Routine 09/03/2012 9:31 AM JOINERY PATTERNMAKER documented in this encounter Results * MAMMO BREAST SPECIMEN LT (09/03/2012 12:09 PM JOINERY PATTERNMAKER) Anatomical Region Laterality Modality Breast Left Mammography 09/03/2012 12:0 8 PM JOINERY PATTERNMAKER Impressions 09/03/2012 3:10 PM JOINERY PATTERNMAKER IMPRESSION: Technically successful needle localization. Narrative 09/03/2012 3:10 PM JOINERY PATTERNMAKER LEFT BREAST WIRE LOCALIZATION USING DIGITAL MAMMOGRAPHIC GUIDANCE AND SURGICAL SPECIMEN RADIOGRAPH. Sep 03, 2012 09:17:00 AM INDICATION: Developing calcifications, preoperative localization TECHNIQUE/FINDINGS: ??The procedure was discussed with the patient. Written and verbal consent was obtained. The patient asked appropriate questions. The calcifications within the anterior aspect of the left breast were localized using digital mammographic technique. After sterile preparation of the skin, less than 10 cc of lidocaine was utilized for local anesthesia. A 3 cm hook-wire system was advanced to the area of interest in the breast from a lateral approach utilizing digital mammographic guidance. Orthogonal views were obtained to confirm appropriate needle/wire position. Then 0.2 cc of methylene blue dye was injected into the needle hub prior to the insertion of the wire. The needle was then removed. The patient tolerated the procedure well and there was no evidence of immediate complication. Images were marked for the surgeon, and the patient was transferred to the operating suite for surgical excision. The surgical specimen was subsequently received from the operating room and digital radiography was performed. The calcifications of interest are located within the surgical specimen. Procedure Note Shahid Giles MD - 09/03/2012 LEFT BREAST WIRE LOCALIZATION USING DIGITAL MAMMOGRAPHIC GUIDANCE AND SURGICAL SPECIMEN RADIOGRAPH. Sep 03, 2012 09:17:00 AM INDICATION: Developing calcifications, preoperative localization TECHNIQUE/FINDINGS: The procedure was discussed with the patient. Written and verbal consent was obtained. The patient asked appropriate questions. The calcifications within the anterior aspect of the left breast were localized using digital mammographic technique. After sterile preparation of the skin, less than 10 cc of lidocaine was utilized for local anesthesia. A 3 cm hook-wire system was advanced to the area of interest in the breast from a lateral approach utilizing digital mammographic guidance. Orthogonal views were obtained to confirm appropriate needle/wire position. Then 0.2 cc of methylene blue dye was injected into the needle hub prior to the insertion of the wire. The needle was then removed. The patient tolerated the procedure well and there was no evidence of immediate complication. Images were marked for the surgeon, and the patient was transferred to the operating suite for surgical excision. The surgical specimen was subsequently received from the operating room and digital radiography was performed. The calcifications of interest are located within the surgical specimen. IMPRESSION IMPRESSION: Technically successful needle localization. Natalie Aj MD MAMMO ORDERABLES * PATHOLOGY (09/03/2012 11:21 AM JOINERY PATTERNMAKER) SURGICAL PATHOLOGY ?[facility] ?[address] ? [place], [place] ??[address] ? Patient: ??DELMI MIRANDA ? : ??1955 ? Procedure Date: ??09/03/2012 ? Accession Date: ??09/03/2012 ? Case No: ??[id number] ? Ordering Dr: ??NATALIE AJ ? Case type SW is performed by [facility], [address], ? [place], [place] ??[id number]; all other case types are performed by [facility] ? [facility], [address] [place], [place] ??[address] ? ADDENDUM REPORT ? NOTE: ? This addendum is issued to report additional information regarding deeper ? levels performed on block A2. Coarse calcifications are seen in association ? with areas of fat necrosis. ? [facility] 09.08.12 ? ELECTRONIC SIGNATURE FOR NIKA YEN M.D. - 09/08/12 01:04 pm ?SURGICAL PATHOLOGY & NON-GYNECOLOGIC CYTOPATHOLOGY REPORT ? DIAGNOSIS ? LEFT BREAST, NEEDLE LOCALIZATION WITH EXCISION: ? - LOCALIZED ORGANIZING FAT NECROSIS. ? - CALCIFICATIONS PRESENT. ? Specimen Description: ? Left breast calcifications, stitch long lateral, short superior, removed at ? 11:21, in formalin at 11:35. ? Operative Procedure: ? Needle localization. ? Patient Information/Histor y/Diagnosis: ? Calcifications. ? Gross: ? Received in a single container labeled Delmi Miranda, left breast ? calcifications, stitch long lateral/short superior is a 5.2 x 3.5 x 1.7-cm ? excision of yellow-cortes fibrofatty tissue oriented with a short suture ? indicating superior and a long suture indicating lateral. The medial ? surface is mildly stained blue-green by dye. A needle localization wire is ? not identified. The margins are inked as follows: anterior-yellow, ? posterior-black, lateral-blue, and medial-green. The specimen is serially ? sectioned from superior to inferior. Sectioning exhibits yellow, lobulated ? adipose tissue with scant fibrous breast septa. A mass is not identified. ? The specimen is accompanied by a radiograph labeled with the patient's ? name. The specimen is entirely and sequentially submitted from superior to ? inferior in cassettes as follows: A1-superior tip, perpendicularly ? sectioned; A2 through [id number] from superior to inferior; A11- ? inferior tip, perpendicularly sectioned. ? [facility] 09.04.2012 04:49 am ? Microscopic: ? Sections are labeled [id number], Delmi Miranda. ? The entire specimen is submitted for histologic examination. The excised ? breast tissue shows scant breast tissue with localized areas of organized ? fat necrosis. No calcifications are seen in the initial sections. The ? blocks are taken to Radiology where they are x-rayed. The digital film is ? read by the radiologist to indicate calcifications in blocks A2 and A3. ? Deeper levels are obtaned and they reveal coarse califications in block A3; ? no calcifications are seen in block A2. Deeper levels will be obtained on ? block A2, and the results will be reported in an addendum. ? COMMENT: Certain proliferative lesions identified in breast biopsies are ? associated with an increased relative risk for the development of invasive ? carcinoma. The relative risks are compared to the risks for women who have ? not had a biopsy. The relative risks associated with specific entities are ? listed below. ? 1. ??No increased risk: adenosis; duct ectasia; fibrosis; fibroadenoma ? (without complex ? features); mild hyperplasia without atypia; cysts; apocrine or squamous ? metaplasia; ? 2. ??Slightly increased risk (1.5- to 2.0-fold): fibroadenoma with complex ? features; moderate or florid hyperplasia without atypia; sclerosing ? adenosis; papilloma; ? 3. ??Moderately increased risk (4.0- to 5.0-fold): atypical lobular ? hyperplasia; atypical ductal hyperplasia; ? 4. ??Markedly increased risk (8.0- to 10.0-fold): ductal carcinoma in situ; ? atypical lobular hyperplasia or atypical ductal hyperplasia when there is ? also a family history of breast carcinoma affecting a first-degree ? relative. ? Reference: Arch Pathol Lab Med 1998;122:1567-2538 . ? BBK/[facility] 09.05.2012 09:08 am ? Staging Form: ? No. ? ELECTRONIC SIGNATURE FOR NIKA YEN M.D.- 09/07/12 02:31 pm [facility] Specimen of unknown material (specimen) 09/03/2012 11:21 AM JOINERY PATTERNMAKER Natalie Aj MD PATHOLOGY/CYTOLOGY O RDERABLES [facility]# [id number] [address] [place] [address] * (ABNORMAL) POC GLUCOSE (09/03/2012 9:31 AM JOINERY PATTERNMAKER) GLUCOSE POC 127(H) 65 - 99 mg/dL [facility] CLIA LICENSE [id number] [facility] Blood specimen (specimen) 09/03/2012 9:31 AM JOINERY PATTERNMAKER 09/03/2012 9:31 AM JOINERY PATTERNMAKER Natalie Aj MD POINT OF CARE TESTIN G [facility]# [id number] [address] [place] [address] documented in this encounter Visit Diagnoses Not on filedocumented in this encounter Administered Medications Inactive Administered Medications - up to 3 most recent administrations Medication Order MAR Action Action Date Dose Rate Site lactated ringers solution IV, at 150 mL/hr, PRE-PROCEDURE CONTINUOUS, Starting on Kathy 09/03/12 at 0915, Until Kathy 09/03/12 at 1136, Routine, Pre-op New Bag 09/03/2012 10:12 AM JOINERY PATTERNMAKER 150 mL/hr lidocaine PF 2 % (XYLOCAINE MPF) injection 0.3 mL 0.3 mL, Intradermal, PRE-PROCEDURE ONCE, Starting on Kathy 09/03/12 at 0908, Until Kathy 09/03/12 at 1136, Routine, Pre-op Given 09/03/2012 9:34 AM JOINERY PATTERNMAKER 0.3 mL Hand, Right documented in this encounter Active and Recently Administered Medications Times are shown in JOINERY PATTERNMAKER. Scheduled Medication Order 09/01/2012 09/02/2012 09/03/2012 lidocaine PF 2 % (XYLOCAINE MPF) injection 0.3 mL (CANCELED) 0.3 mL, Intradermal, PRE-PROCEDURE ONCE, Starting on Kathy 09/03/12 at 0908, Until Kathy 09/03/12 at 1136, Routine, Pre-op 0934 (Given - Provid er: Susie Juan RN) Continuous Medication Order 09/01/2012 09/02/2012 09/03/2012 lactated ringers solution (CANCELED) IV, at 150 mL/hr, PRE-PROCEDURE CONTINUOUS, Starting on Kathy 09/03/12 at 0915, Until Kathy 09/03/12 at 1136, Routine, Pre-op 1012 (New Bag - Prov ider: Susie Juan RN) documented in this encounter
--- OUTSIDE RECORDS SUMMARY | 2024-08-03 20:31 | XMS_ITS | Encounter Summary ---
Author Organization [facility] Address [address] [place] [address] Care Team Providers Care Store Operations Manager Name Role Phone Montana Lion MD Primary Care Provider [phone] Reason for Referral * Outpatient Services (Routine) - Closed Specialty Diagnoses / Procedures Referred By Traci t Referred To Contact Diagnoses Morbid obesity with BMI of 40.0-44.9, adult Diffuse cystic mastopathy, unspecified laterality Procedures MAMMO DIG SCREEN BILAT W 3D Natalie Uribe MD [address] [place] [address] Referral ID Status Reason Start Date Expiration Date Visits Re quested Visits Authorized [id number] Closed 10/09/2015 11/08/2016 1 1 Reason for Visit * Outpatient Services (Routine) - Closed Specialty Diagnoses / Procedures Referred By Contac t Referred To Contact Diagnoses Morbid obesity with BMI of 40.0-44.9, adult Diffuse cystic mastopathy, unspecified laterality Procedures MAMMO DIG SCREEN BILAT W 3D Natalie Uribe MD [address] [place] [address] Referral ID Status Reason Start Date Expiration Date Visits Re quested Visits Authorized [id number] Closed 10/09/2015 11/08/2016 1 1 Encounter Details Date Type Department Care Team (Latest Contact Info) Description 10/14/2016 10:20 AM CDT - 10/14/2016 11:59 PM CDT Hospital Encounter [facility] [address] [place] [address] Natalie Aj MD [address] [place] [address] Discharge Disposition: Home or Self Care [...] Sig Dispensed Refills Start Date End Date atorvastatin (LIPITOR) 20 mg tablet Take 20 mg by mouth late in the day. losartan (COZAAR) 50 mg tabletIndications:Diffuse cystic mastopathy, [...] Name Priority Date/Time Associated Diagnosis Comments MAMMO 3D JR SCREEN BILAT W OR WO CAD Routine 10/14/2016 11:08 AM CDT Morbid obesity with BMI of 40.0-44.9, adult Diffuse cystic mastopathy, unspecified laterality documented in this encounter Results * MAMMO DIG SCREEN BILAT W 3D JR (10/14/2016 11:08 AM CDT) Anatomical Region Laterality Modality Breast Bilateral Mammography 10/14/2016 11:0 8 AM CDT Impressions 10/14/2016 3:22 PM CDT IMPRESSION: No suspicious findings to suggest malignancy in either breast. Annual mammography is recommended. OVERALL ASSESSMENT: BI-RADS Category 1 - Negative. Dictated from: Stephy Gilliland Narrative 10/14/2016 3:22 PM CDT BILATERAL FULL-FIELD DIGITAL SCREENING MAMMOGRAM WITH CAD WITH 3D TOMOSYNTHESIS DATE: 10/14/2016 11:08 AM HISTORY: Routine screening. TECHNIQUE: Full-field digital craniocaudal and mediolateral oblique projections of both breasts were obtained. Low-dose full-field digital breast tomosynthesis examination was performed with 2D and 3D acquisitions. Examination is read in conjunction with computer aided detection. COMPARISON: 10/09/2015 and older. BREAST COMPOSITION: Predominately fatty. FINDINGS: No suspicious mass, suspicious microcalcifications, or architectural distortion is identified in either breast. Computer aided detection was used in the interpretation of this examination. Procedure Note Apple Ruff MD - 10/14/2016 BILATERAL FULL-FIELD DIGITAL SCREENING MAMMOGRAM WITH CAD WITH 3D TOMOSYNTHESIS DATE: 10/14/2016 11:08 AM HISTORY: Routine screening. TECHNIQUE: Full-field digital craniocaudal and mediolateral oblique projections of both breasts were obtained. Low-dose full-field digital breast tomosynthesis examination was performed with 2D and 3D acquisitions. Examination is read in conjunction with computer aided detection. COMPARISON: 10/09/2015 and older. BREAST COMPOSITION: Predominately fatty. FINDINGS: No suspicious mass, suspicious microcalcifications, or architectural distortion is identified in either breast. Computer aided detection was used in the interpretation of this examination. IMPRESSION IMPRESSION: No suspicious findings to suggest malignancy in either breast. Annual mammography is recommended. OVERALL ASSESSMENT: BI-RADS Category 1 - Negative. Dictated from: Stephy Gilliland Natalie Aj MD MAMMO ORDERABLES documented in this encounter Visit Diagnoses Diagnosis Morbid obesity with BMI of 40.0-44.9, adult Diffuse cystic mastopathy, unspecified laterality documented in this encounter Care Teams Store Operations Manager Relationship Specialty Start Date End Date Montana Lion MD [address] [place] [address] PCP - General Family Practice 10/03/15 documented as of this encounter
--- OUTSIDE RECORDS SUMMARY | 2024-08-03 20:31 | XMS_ITS | Encounter Summary ---
Author Organization [facility] Address [address] [place] [address] Care Team Providers Care Grades 7 And 8 Visiting Teacher Name Role Phone Unavailable Primary Care Provider Unavailabl e Reason for Referral * Outpatient Services (Routine) - Closed Specialty Diagnoses / Procedures Referred By Traci aguilar Referred To Contact Diagnoses Abnormal mammogram, unspecified Procedures MAMMO BREAST SPECIMEN LT Natalie Aj MD [address] [place] [address] Referral ID Status Reason Start Date Expiration Date Visits Re quested Visits Authorized [id number] Closed 09/02/2012 10/03/2013 1 1 ETING ROTATION ASSOCIATE Reason for Visit * Auth/Cert - Closed Specialty Diagnoses / Procedures Referred By Traci aguilar Referred To Contact General Surgery Diagnoses ABNORMAL MAMMOGRAM Procedures BREAST BIOPSY [facility] [address] [place] [address] Referral ID Status Reason Start Date Expiration Date Visits Re quested Visits Authorized [id number] Closed 1 1 Encounter Details Date Type Department Care Team (Latest Contact Info) Description 09/03/2012 8:52 AM MARKETING ROTATION ASSOCIATE - 09/03/2012 12:29 PM MARKETING ROTATION ASSOCIATE Hospital Encounter [facility] SURGERY [address] [place] [address] Natalie Aj MD [address] [place] [address] Discharge Disposition: Home or Self Care [...] Sign Reading Time Taken Comments Blood Pressure 144/83 09/03/2012 12:11 PM MARKETING ROTATION ASSOCIATE Pulse 59 09/03/2012 9:18 AM MARKETING ROTATION ASSOCIATE Temperature 36.4 ??C (97.6 ??F) 09/03/2012 11:[address] Respiratory Rate 16 09/03/2012 12:11 PM MARKETING ROTATION ASSOCIATE Oxygen Saturation 99% 09/03/2012 12:11 PM MARKETING ROTATION ASSOCIATE Inhaled Oxygen Concentration - - Weight 109.3 kg (241 lb) 09/03/2012 9:18 AM MARKETING ROTATION ASSOCIATE Height 157.5 cm (5' 2 ) 09/01/2012 3:00 PM MARKETING ROTATION ASSOCIATE Body Mass Index 44.08 09/01/2012 3:00 PM MARKETING ROTATION ASSOCIATE documented in this encounter Discharge Instructions * Discharge Instructions* Natalie Aj MD - 09/03/2012 11:58 AM MARKETING ROTATION ASSOCIATE [facility] [address] [place] [address] POST BREAST BIOPSY INSTRUCTIONS ACTIVITY: No restrictions [...] support (physician/date) (patient/date) (nurse/date) Natalie Aj MD ETING ROTATION ASSOCIATE documented in this encounter Medications at Time [...] patient today and there are no changes. ETING ROTATION ASSOCIATE * Natalie Aj MD - 09/01/2012 10:55 [...] of 61. 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 She is . She drinks rarely and does not smoke. She is here today with her . BEATER HEAD HX: OB History Grav Para Term Abortions TAB SAB Ect Mult Living 3 3 Obstetric Comments Age @ onset of menses:14 Age @ first live : 23 PMH: Past Medical History Diagnosis Date ??? Diabetes mellitus ??? HTN (hypertension) PSH: Past Surgical History Procedure Date ??? Hx cholecystectomy 2006 ??? Hx hemicolectomy 2007 ALLERGY: Allergies Allergen Reactions ??? Sulfa(Sulfonamide Antibiotics) [...] 06, 2005 and July 24, 2012 at [facility]. New cluster of calcifications upper-outer left [...] localized excisional breast biopsy Natalie Aj M.D. ETING ROTATION ASSOCIATE documented in this encounter OR Notes * OR Anesthesia - Mary Jo Schmitt - 09/08/2012 7:27 PM CST ETING ROTATION ASSOCIATE * OR Anesthesia - Velvet Peng MD - 09/03/2012 12:07 PM CST Phase II Postanesthesia Evaluation Including [facility] [place] Score Patient seen and evaluated: [facility] [place] Score: Score: 19 (09/03/121152) COMMENTS: No apparent Anesthesia related complications RESPIRATORY [...] ??C) (09/03/121138) PAIN: Pain Rating: Rest: 0 (01/31/13 1139) Presence of Pain: denies pain/discomfort (09/03/12 1139) Pain: pain free (09/03/12 1153) [2=pain free, 1=pain handled by oral medication, [...] wetness] Velvet Peng MD 09/03/2012 12:07 PM ETING ROTATION ASSOCIATE * Operative Report - Natalie Aj MD - 09/03/2012 11:55 AM CST DATE OF SERVICE: 09/03/2012 SURGEON Natalie Aj MD PREOPERATIVE DIAGNOSIS Calcifications left breast POSTOPERATIVE DIAGNOSIS Same OPERATION NAME Left needle localized excisional breast biopsy ANESTHESIA MAC ANESTHESIOLOGIST Dr Peng; Brook Longoria [facility] CHIEF NURSE Fabian Torres Indications for surgery. 56 y.o. [...] was taken to recovery in good condition ETING ROTATION ASSOCIATE * Darlin-OP - Seema Hamilton, RN - 09/03/2012 11:30 AM CST 1% Lidocaine PL 12 MLs Injected per MD, 0.[address] 12 MLs inj per MD 0.9% Sodium Chloride for Irrigation ETING ROTATION ASSOCIATE * OR Anesthesia - Velvet Peng MD - 09/03/2012 9:29 AM CST Pre-Anesthesia Evaluation - Long Form 09/03/2012 9:29 AM Name: Delmi Miranda Age: 56 y.o. Sex: female CSN: [id number] Procedure: Procedure(s): BREAST BIOPSY Surgeons/Assistants: Surgeon(s) and [...] solicited and answered. Yes Velvet Peng MD ETING ROTATION ASSOCIATE documented in this encounter Miscellaneous Notes * Scanned Form - Mary Jo Schmitt - 09/08/2012 7:27 PM CST ETING ROTATION ASSOCIATE * Scanned Form - Scanning, Stl - 09/08/2012 7:27 PM CST Electronically signed by Interface, [facility] Stl Food Assembler Commiss[employer] Kitchen Incoming at 09/08/2012 7:27 PM MARKETING ROTATION ASSOCIATE * Scanned Form - Scanning, Stl - 09/08/2012 7:27 PM CST Electronically signed by Interface, [facility] Stl Food Assembler Commissary Kitchen Incoming at 09/08/2012 7:27 PM MARKETING ROTATION ASSOCIATE * Patient Instructions - Scanning, Stl - 09/08/2012 7:27 PM CST Electronically signed by Interface, [facility] Stl Food Assembler Commissary Kitchen Incoming at 09/08/2012 7:27 PM MARKETING ROTATION ASSOCIATE documented in this encounter Plan of Treatment Not on file documented as of this encounter Procedures Procedure Name Priority Date/Time Associated Diagnosis Comments MAMMO BREAST SPECIMEN LT Routine 09/03/2012 12:09 PM MARKETING ROTATION ASSOCIATE Abnormal mammogram, unspecified PATHOLOGY Routine 09/03/2012 11:21 AM MARKETING ROTATION ASSOCIATE BREAST BIOPSY 09/03/2012 10:30 AM MARKETING ROTATION ASSOCIATE ABNORMAL MAMMOGRAM POC GLUCOSE Routine 09/03/2012 9:31 AM MARKETING ROTATION ASSOCIATE documented in this encounter Results * MAMMO BREAST SPECIMEN LT (09/03/2012 12:09 PM MARKETING ROTATION ASSOCIATE) Anatomical Region Laterality Modality Breast Left Mammography 09/03/2012 12:0 8 PM MARKETING ROTATION ASSOCIATE Impressions 09/03/2012 3:10 PM MARKETING ROTATION ASSOCIATE IMPRESSION: Technically successful needle localization. Narrative 09/03/2012 3:10 PM MARKETING ROTATION ASSOCIATE LEFT BREAST WIRE LOCALIZATION USING DIGITAL MAMMOGRAPHIC [...] MAMMO ORDERABLES * PATHOLOGY (09/03/2012 11:21 AM MARKETING ROTATION ASSOCIATE) SURGICAL PATHOLOGY ?[facility] ?[address] ? [place], [place] ??[address] ? Patient: ??DELMI MIRANDA ? : ??1955 ? Procedure Date: ??09/03/2012 ? Accession Date: ??09/03/2012 ? Case No: ??[id number] ? Ordering Dr: ??NATALIE AJ ? Case type SW is performed by [facility], [address] [facility], ? [place], [place] ??[address]; all other case types are performed by [facility] ? [facility], [address] [place], [place] ??[address] ? ADDENDUM REPORT ? NOTE: ? This addendum is issued to report additional information regarding deeper ? levels performed on block A2. Coarse calcifications are seen in association ? with areas of fat necrosis. ? BBK/[facility] 09.08.12 ? ELECTRONIC SIGNATURE FOR NIKA YEN [...] A1-superior tip, perpendicularly ? sectioned; A2 through I12-[id number] from superior to inferior; A11- ? inferior tip, perpendicularly sectioned. ? [facility] 09.04.2012 04:49 am ? Microscopic: ? Sections are labeled [id number], Delmi Miranda. ? The entire specimen is [...] relative. ? Reference: Arch Pathol Lab Med 1998;122:0602-6244 . ? BBK/SAMANTHA 09.05.2012 09:08 am ? Staging Form: ? No. ? ELECTRONIC SIGNATURE FOR NIKA YEN M.D.- 09/07/12 02:31 pm [facility] [employer] [facility] Specimen of unknown material (specimen) 09/03/2012 11:21 AM MARKETING ROTATION ASSOCIATE Natalie Aj MD PATHOLOGY/CYTOLOGY O RDERABLES Performing Organization Address [facility] Co de Phone Number [facility] [employer] [facility] CLIA# [id number] [address] [facility] [place] [address] * (ABNORMAL) POC GLUCOSE (09/03/2012 9:31 AM MARKETING ROTATION ASSOCIATE) GLUCOSE POC 127(H) 65 - 99 mg/dL [facility] CLIA LICENSE [id number] [facility] [employer] [facility] Blood specimen (specimen) 09/03/2012 9:31 AM MARKETING ROTATION ASSOCIATE 09/03/2012 9:31 AM MARKETING ROTATION ASSOCIATE Natalie Aj MD POINT OF CARE TESTIN G [facility] LABORATORY SERVICES [facility]# [id number] [address] [place] [address] documented in this encounter Visit Diagnoses Diagnosis Abnormal mammogram, unspecified documented in this encounter Administered Medications Inactive Administered Medications - up to 3 most recent administrations Medication Order MAR Action Action Date Dose Rate Site lactated ringers solution IV, at 150 mL/hr, PRE-PROCEDURE CONTINUOUS, Starting on Kathy 09/03/12 at 0915, Until Kathy 09/03/12 at 1136, Routine, Pre-op New Bag 09/03/2012 10:12 AM MARKETING ROTATION ASSOCIATE 150 mL/hr lidocaine PF 2 % (XYLOCAINE MPF) injection 0.3 mL 0.3 mL, Intradermal, PRE-PROCEDURE ONCE, Starting on Kathy 09/03/12 at 0908, Until Kathy 09/03/12 at 1136, Routine, Pre-op Given 09/03/2012 9:34 AM MARKETING ROTATION ASSOCIATE 0.3 mL Hand, Right documented in this encounter Active and Recently Administered Medications Times are shown in MARKETING ROTATION ASSOCIATE. Scheduled Medication Order 09/01/2012 09/02/2012 09/03/2012 lidocaine [...] 1012 (New Bag - Prov ider: Susie Juan, GEOFFREY) documented in this encounter
--- OUTSIDE RECORDS SUMMARY | 2024-08-03 20:31 | XMS_ITS | Encounter Summary ---
Author Organization [facility] Address [address] [place] [address] Care Team Providers Care Straw Boss Name Role Phone Unavailable Primary Care Provider Unavailabl e Reason for Referral * Outpatient Services (Routine) - Closed Specialty Diagnoses / Procedures Referred By Contruma t Referred To Contact Diagnoses Fat necrosis Procedures MAMMO DIGITAL SCREEN Natalie Brandt MD [address] [place] [address] Referral ID Status Reason Start Date Expiration Date Visits Re quested Visits Authorized [id number] Closed 09/14/2012 10/15/2013 1 1 LESOFT ADMINISTRATOR Reason for Visit * Reason Comments Post-op Visit Encounter Details Date Type Department Care Team (Latest Contact Info) Description 09/14/2012 10:00 AM PEOPLESOFT ADMINISTRATOR Clinical Support [facility] BREAST SURGERY - [place] [facility] [address] [facility] [address] [place] [address] Fat necrosis (Primary Dx) Social History Tobacco Use Types Packs/Day Years Used Date Smoking Tobacco: Never Smokeless Tobacco: Never Alcohol Use Standard Drinks/Week Comments No 0 (1 standard drink = 0.6 oz pur e alcohol) Sex and Gender Information Value Date Recorded Sex Assigned at Not on file Gender Identity Not on file Sexual Orientation Not on file documented as of this encounter Progress Notes * Natalie Aj MD - 09/14/2012 10:32 AM CST Status post left excisional breast biopsy August 24, 2012. Pathology showed localized organizing fat necrosis. There is no atypia and no malignancy. I reviewed the pathology results with her and reassured her that it benign. No further surgical intervention is necessary at this time. She'll resume annual mammography in July 2013, continue to check herself monthly and continue yearly clinical exam by her physicians All questions were answered to her satisfaction. Angela Aj M.D. LESOFT ADMINISTRATOR * Maty Ureña - 09/14/2012 9:57 AM CST Patient comes in today for f/u on left breast excision done on 09/03/12. Incision healing well. No pain or erythema. Dr Aj saw patient and discussed pathology. LESOFT ADMINISTRATOR documented in this encounter Plan of Treatment Not on file documented as of this encounter Results * MAMMO DIGITAL SCREEN BILAT (09/20/2013 10:52 AM PEOPLESOFT ADMINISTRATOR) Anatomical Region Laterality Modality Breast Bilateral Mammography 09/20/2013 10:5 0 AM PEOPLESOFT ADMINISTRATOR Narrative 09/21/2013 5:59 PM PEOPLESOFT ADMINISTRATOR BILATERAL FULL FIELD DIGITAL SCREENING MAMMOGRAM WITH CAD. 09/20/13 HISTORY: Routine Screening. TECHNIQUE: Full field digital screening mammography of both breasts were obtained. COMPARISON: Comparison is made to previous outside exams from [facility] dating back to March 2009 BREAST PARENCHYMAL COMPOSITION: Almost entirely fat FINDINGS: No new dominant masses, suspicious calcifications, parenchymal asymmetry or areas of architectural distortion are identified in either breast. Since the prior study, there has been no significant interval change. The computer aided detection system was utilized. OVERALL ASSESSMENT: ??BI-RADS category 1: Negative. RECOMMENDATION: Annual mammography is recommended. [facility] from [facility] Procedure Note Bertrand Bhakta MD - 09/21/2013 BILATERAL FULL FIELD DIGITAL SCREENING MAMMOGRAM WITH CAD. 09/20/13 HISTORY: Routine Screening. TECHNIQUE: Full field digital screening mammography of both breasts were obtained. 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
--- OUTSIDE RECORDS SUMMARY | 2024-08-03 20:31 | XMS_ITS | Encounter Summary ---
Author Organization [facility] Address [address] [place] [address] Care Team Providers Care Pyrometallurgical Engineer Name Role Phone Unavailable Primary Care Provider Unavailabl e Encounter Details Date Type Department Care Team (Latest Contact Info) Description 08/31/2012 12:27 PM MEN'S CUSTOM HAIR PIECE CONSULTANT - 08/31/2012 11:59 PM MEN'S CUSTOM HAIR PIECE CONSULTANT Hospital Encounter [facility] Diagnostic Cardiology Services [address] [address] [place] [id number] Natalie Aj MD [address] [facility] [place] [address] Discharge Disposition: Home or Self [...]
--- OUTSIDE RECORDS SUMMARY | 2024-08-03 20:31 | XMS_ITS | Encounter Summary ---
Author Organization [facility] Address [address] [place] [address] Care Team Providers Care Head Buyer Tobacco Name Role Phone Unavailable Primary Care Provider Unavailabl e Reason for Referral * Outpatient Services (Routine) - Closed Specialty Diagnoses / Procedures Referred By Contac t Referred To Contact Radiology Diagnoses Abnormal mammogram, unspecified Procedures MAMMO NEEDLE LOC EA LESION LT Natalie Aj MD [address] [place] [address] Referral ID Status Reason Start Date Expiration Date Visits Re quested Visits Authorized [id number] Closed 09/01/2012 10/02/2013 1 1 SETTER APPRENTICE Reason for Visit * Auth/Cert - Closed Specialty Diagnoses / Procedures Referred By Contac t Referred To Contact General Surgery Diagnoses ABNORMAL MAMMOGRAM Procedures BREAST BIOPSY [facility] [address] [place] [address] Referral ID Status Reason Start Date Expiration Date Visits Re quested Visits Authorized [id number] Closed 1 1 Encounter Details Date Type Department Care Team (Latest Contact Info) Description 09/03/2012 9:05 AM TOOL SETTER APPRENTICE - 09/03/2012 11:59 PM TOOL SETTER APPRENTICE Hospital Encounter [facility] [address] [place] [address] Natalie Aj MD [address] [place] [address] Discharge Disposition: Home or Self [...] at bedtime. documented as of this encounter Miscellaneous Notes * Scanned Form - Scanning, Stl - 09/20/2012 5:52 PM CST Electronically signed by Interface, [facility] Manager Incoming at 09/20/2012 5:52 PM TOOL SETTER APPRENTICE documented in this encounter Plan of Treatment Not on file documented as of this encounter Procedures Procedure Name Priority Date/Time Associated Diagnosis Comments MAMMO NEEDLE LOC EA LESION LT Routine 09/03/2012 10:15 AM TOOL SETTER APPRENTICE Abnormal mammogram, unspecified documented in this encounter Results * MAMMO NEEDLE LOC EA LESION LT (09/03/2012 10:15 AM TOOL SETTER APPRENTICE) Anatomical Region Laterality Modality Breast Left Ultrasound 09/03/2012 9:17 AM TOOL SETTER APPRENTICE Impressions 09/03/2012 3:10 PM TOOL SETTER APPRENTICE IMPRESSION: Technically successful needle localization. Narrative 09/03/2012 3:10 PM TOOL SETTER APPRENTICE LEFT BREAST WIRE LOCALIZATION USING DIGITAL MAMMOGRAPHIC [...] needle localization. Natalie Aj MD MAMMO ORDERABLES documented in this encounter Visit Diagnoses Diagnosis Abnormal mammogram, unspecified documented in this encounter Administered Medications Inactive Administered Medications - up to 3 most recent administrations Medication Order MAR Action Action Date Dose Rate Site lidocaine PF 1 % (XYLOCAINE MPF) injection 30 mL 30 mL, Intradermal, ONE TIME ONLY, 1 dose, On Kathy 09/03/12 at 1015, Routine Given 09/03/2012 10:00 AM TOOL SETTER APPRENTICE 6 mL Operative Site methylene blue (UROLENE BLUE) 1 % injection 10 mg 10 mg (1 mL), See Admin Instructions, ONE TIME ONLY, 1 dose, On Kathy 09/03/12 at 1015, Routine Given 09/03/2012 10:00 AM TOOL SETTER APPRENTICE 2 mg Operative Site sodium bicarbonate 4.2 % injection 2.5 mEq 2.5 mEq (5 mL), See Admin Instructions, ONE TIME ONLY, 1 dose, On Kathy 09/03/12 at 1015, Routine Given 09/03/2012 10:00 AM TOOL SETTER APPRENTICE 0.5 mEq Operative Site documented in this encounter
--- OUTSIDE RECORDS SUMMARY | 2024-08-03 20:31 | XMS_ITS | Encounter Summary ---
Author Organization [facility] Address [address] [place] [address] Care Team Providers Care Dispensary Clerk Name Role Phone Montana Lion MD Primary Care Provider [phone] Reason for Referral * Outpatient Services (Routine) - Closed Specialty Diagnoses / Procedures Referred By Contac t Referred To Contact Diagnoses Morbid obesity with BMI of 40.0-44.9, adult Diffuse cystic mastopathy, unspecified laterality Procedures MAMMO DIG SCREEN BILAT W 3D JR Natalie Aj MD [address] [place] [address] Referral ID Status Reason Start Date Expiration Date Visits Re quested Visits Authorized [id number] Closed 10/09/2015 11/08/2016 1 1 O REPORTER Reason for Visit * Reason Comments Breast Exam, Routine, No Symptoms annual ck Encounter Details Date Type Department Care Team (Late st Contact Info) Description 10/09/2015 11:30 AM RADIO REPORTER Office Visit [facility] BREAST SURGERY - [place] [facility] [address] [facility] [address] [place] [address] Natalie Aj MD [address] [place] [address] Morbid obesity with BMI of 40.0-44.9, adult (Primary Dx); Diffuse cystic mastopathy, unspecified laterality Social History Tobacco Use Types Packs/Day Years [...] Sign Reading Time Taken Comments Blood Pressure 141/66 10/09/2015 11:31 AM RADIO REPORTER Pulse 61 10/09/2015 11:31 AM RADIO REPORTER Temperature - - Respiratory Rate - - Oxygen Saturation - - Inhaled Oxygen Concentration - - Weight 105.7 kg (233 lb) 10/09/2015 11:31 AM RADIO REPORTER Height 157.5 cm (5' 2 ) 10/09/2015 11:31 AM RADIO REPORTER Body Mass Index 42.62 10/09/2015 11:31 AM RADIO REPORTER documented in this encounter Progress Notes * Natalie Aj MD - 10/09/2015 11:53 AM CST PATIENT: Delmi Briseno : 1955 DATE: 10/09/2015 Delmi Briseno is a 60 y.o. female. She is here for annual breast check. She had a benign left excisional breast biopsy August 2012.. She has no complaints referable to her breasts. She is gravida3, para 3. She was 14 at menarche and 23 at first live . In maternal grandmother had breast cancer at age of 60. 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 She is . She drinks rarely and does not smoke. PMH: Past Medical History Diagnosis Date ??? Diabetes mellitus ??? HTN (hypertension) ??? Hyperlipidemia ??? Unspecified adverse effect of anesthesia nausea/vomiting PSH: Past Surgical History Procedure Laterality Date ??? Hx cholecystectomy 2006 ??? Hx hemicolectomy 2008 ??? Hx section x3 ??? Pr excise breast cyst 09/03/2012 BREAST BIOPSY performed by Natalie Aj MD at [facility] OR ??? Hx excisional biopsy Left 09/03/12 ALLERGY: Allergies Allergen Reactions ??? Adhesive Rash ??? Sulfa (Sulfonamide Antibiotics) Hives MEDS: Current Outpatient Prescriptions Medication Sig Dispense Refill ??? losartan (COZAAR) 50 mg tablet ??? KOMBIGLYZE XR 2.5-1,000 mg Extended Release 24 hour tablet ??? atorvastatin (LIPITOR) 10 mg tablet ??? MULTIVITAMIN ORAL Take by mouth. ??? simvastatin (ZOCOR) 40 mg Oral tablet Take 40 mg by mouth Daily LATE. ??? metFORMIN (GLUCOPHAGE) 1,000 mg Oral tablet Take 1,000 mg by mouth 2 times daily with meals. ??? CETIRIZINE HCL (ZYRTEC ORAL) Take by mouth. ??? Magnesium 500 mg Oral Tab Take by mouth. ??? OMEGA-3 FATTY ACIDS (FISH OIL ORAL) Take by mouth. ??? traZODone (DESYREL) 50 mg Oral tablet Take 50 mg by mouth daily at bedtime. No current facility-administered medications for this visit. ROS: Constitutional: Negative for fever, weight loss [...] Negative for anemia, bleeding disorders, HIV/AIDS BP 141/66 mmHg Pulse 61 Ht 5' 2 (1.575 m) Wt 105.688 kg (233 lb) BMI 42.61 kg/m2 ? No PHYSICAL EXAM: Well-developed, well-nourished, pleasant woman. Neck - no thyromegaly no cervical adenopathy SCF- no adenopathy Axilla -no adenopathy Breasts - Right breast:normal in appearance, no masses, skin changes or nipple discharge Left breast: normal in appearance, no masses, skin changes or nipple discharge Extremities - Good range of motion of shoulders, no lymphedema present IMAGING: films are reviewed. Mammogram: July 06, 2005 and July 24, 2012 at [facility] in [facility]. New cluster of calcifications upper-outer left breast. Mammogram: 09/20/2013 at [facility]; No mammographic evidence of malignancy Mammogram: 09/26/2014 at [facility]; nem Mammogram: 10/09/2015 at [facility]; nem, pending official radiology reading IMPRESSION /PLAN: 60 y.o. woman with stable breast exam and imaging today I have personally reviewed her mammogram today and it is stable I will see her back in one year with mammogram, if radiology reading is okay The patient is asked to make an attempt to improve diet and exercise patterns to aid in breast cancer risk reduction 15 minutes was spent in face to face with the patient Natalie Aj MD.FACS. cc: Montana Lion MD [address] [place] [address] O REPORTER documented in this encounter Plan of Treatment Not on file documented as of this encounter Results * MAMMO DIG SCREEN [...] 1 - Negative. Dictated from: [facility] [place] Natalie Aj MD MAMMO ORDERABLES documented in this encounter Visit Diagnoses Diagnosis Morbid obesity with BMI of 40.0-44.9, adult- Primary Diffuse cystic mastopathy, unspecified laterality Morbid obesity with BMI of 40.0-44.9, adult Diffuse cystic mastopathy, unspecified laterality documented in this encounter Care Teams Dispensary Clerk Relationship Specialty Start Date End Date Montana Lion MD [address] [place] [address] PCP - General Family Practice 10/03/15 documented as of this encounter
--- OUTSIDE RECORDS SUMMARY | 2024-08-03 20:31 | XMS_ITS | Clinical Summary ---
Author Organization [facility] Address [address] [place] [address] Phone Care Team Providers Care Sole Filler Name Role Phone Montana Lion MD Primary Care Provider [phone] Allergies Active Allergy Reactions Criticality Noted Date Comments Adhesive Rash Low 09/01/2012 Sulfa (Sulfonamide Antibiotics) Hives High 08/05 Medications Medication Sig Dispensed Refills Start Date End Date Status MULTIVITAMIN ORAL Take by mouth. Act yana simvastatin (ZOCOR) 40 mg Oral tablet Take 40 mg by mouth Daily LATE. Active metFORMIN (GLUCOPHAGE) 1,000 mg Oral tablet Take 1,000 mg by mouth 2 times daily with meals. Active CETIRIZINE HCL (ZYRTEC ORAL) Take by mouth. Active Magnesium 500 mg Oral Tab Take by mouth. Active OMEGA-3 FATTY ACIDS (FISH OIL ORAL) Take by mouth. Activ e traZODone (DESYREL) 50 mg Oral tablet Take 50 mg by mouth daily at bedtime. Active losartan (COZAAR) 50 mg tabletIndications:Diffu se cystic mastopathy, unspecified laterality 08/01/2014 Ac tive KOMBIGLYZE XR 2.5-1,000 mg Extended Release 24 hour tabletIndications:Diffu se cystic mastopathy, unspecified laterality 08/15/2014 Ac tive atorvastatin (LIPITOR) 20 mg tablet Take 20 mg by mouth late in the day. Active Active Problems Patient Care Coordination No te Formatting of this note migh t be different from the original. Primary Care: Aleta Mace MD Referring Provider: Aleta Mace MD [address] [place] [address] [address] [place] [address] Other: Problem Noted Date Diagnosed Date Morbid obesity with BMI of 40.0-44.9, adult 02/2016 Diffuse cystic mastopathy 09/20/2013 Fat necrosis 09/14/2012 Diabetes mellitus HTN (hypertension) Resolved Problems Problem Noted Date Diagnosed Date Resolved Date Abnormal mammogram, unspecified 08/31/2012 10/09/2015 Family History Medical History Relation Name Comments Cancer Father Stroke Father Breast Cancer Maternal Grandmother Relation Name Status Comments Father Maternal Grandmother Social History Tobacco Use Types Packs/Day Years Used Date Smoking Tobacco: Never Smokeless Tobacco: Never Alcohol Use Standard Drinks/Week Comments No 0 (1 standard drink = 0.6 oz pur e alcohol) Sex and Gender Information Value Date Recorded Sex Assigned at Not on file Gender Identity Not on file Sexual Orientation Not on file Last Filed Vital Signs Vital Sign Reading Time Taken Comments Blood Pressure 137/75 10/14/2016 11:29 AM CDT Pulse 66 10/14/2016 11:29 AM CDT Temperature 36.4 ??C (97.6 ??F) 09/03/2012 11:[address] Respiratory Rate 16 09/03/2012 12:11 PM MICROFILM OPERATOR Oxygen Saturation 99% 09/03/2012 12:11 PM MICROFILM OPERATOR Inhaled Oxygen Concentration - - Weight 105.2 kg (232 lb) 10/14/2016 11:29 AM CDT Height 157.5 cm (5' 2 ) 10/14/2016 11:29 AM CDT Body Mass Index 42.43 10/14/2016 11:29 AM CDT Plan of Treatment Health Maintenance Due Date Last Done Comments PNEUMOCOCCAL VACCINE 65+ YEA RS (1 of 2 - PCV) 1962 DIABETES ANNUAL FOOT EXAM 1974 DIABETES ANNUAL RETINAL EXAM 1974 DIABETES HBA1C Q 6 MONTHS 1974 DIABETES MICROALBUMIN ANNUAL SCREEN 1974 LDL CHOLESTEROL ANNUAL 1974 DTAP/TDAP/TD VACCINES (1 - Tdap) 1975 FIT-DNA Q 3 years 2001 FIT/FOBT Q 1 year 2001 Flex Sig/CT Colonography Q 5 years 2001 ZOSTER VACCINE (1 of 2) 2006 RSV VACCINE (60+ or ) (1 - Risk 60-74 years 1-dose series) 2016 BREAST CANCER SCREENING 10/14/2017 10/15/19 17, 10/09/2015, 09/26/2014, Additional history exists OSTEOPOROSIS SCREENING 2021 INFLUENZA VACCINE (#1) 2024 COLORECTAL SCREENING 07/03/2031 07/03/2021 Colorectal Cancer Screening 07/03/2031 Procedures Procedure Name Priority Date/Time Associated Diagnosis Comments MAMMO 3D JR SCREEN BILAT W OR WO CAD Routine 10/14/2016 11:08 AM CDT Morbid obesity with BMI of 40.0-44.9, adult Diffuse cystic mastopathy, unspecified laterality from Last 3 Months or Most Recently Relevant to Health Maintenance Results * MAMMO DIG SCREEN BILAT W [...] [place] Natalie Aj MD MAMMO ORDERABLES from Last 3 Months or Most Recently Relevant to Health Maintenance Advance Directives For more information, please contact: [phone] * Full Code (Latest Code Status on File) Date Activated Date Inactivated Comments 09/03/2012 9:08 AM 09/03/2012 2:29 PM * Full Code Date Activated Date Inactivated Comments 09/03/2012 9:08 AM 09/03/2012 9:08 AM Care Teams Sole Filler Relationship Specialty Start Date End Date Montana Lion MD [address] [place] [address] PCP - General Family Practice 10/03/15
--- OUTSIDE RECORDS SUMMARY | 2024-08-03 20:31 | XMS_ITS | Encounter Summary ---
Author Organization [facility] Address [address] [place] [address] Care Team Providers Care Railroader Name Role Phone Unavailable Primary Care Provider Unavailabl e Reason for Visit * Reason Comments Abnormal Mammogram lt breast Encounter Details Date Type Department Care Team (Late st Contact Info) Description 08/31/2012 11:15 AM ETHYLBENZENE CONVERTER OPERATOR Office [facility] [address] [facility] [address] [place] [address] Natalie Aj MD [address] [place] [address] Abnormal mammogram, unspecified (Primary Dx) Social History Tobacco Use Types [...] Sign Reading Time Taken Comments Blood Pressure 163/82 08/31/2012 11:35 AM ETHYLBENZENE CONVERTER OPERATOR Pulse - - Temperature - - Respiratory Rate - - Oxygen Saturation - - Inhaled Oxygen Concentration - - Weight 110.2 kg (243 lb) 08/31/2012 11:35 AM ETHYLBENZENE CONVERTER OPERATOR Height 157.5 cm (5' 2 ) 08/31/2012 11:35 AM ETHYLBENZENE CONVERTER OPERATOR Body Mass Index 44.45 08/31/2012 11:35 AM ETHYLBENZENE CONVERTER OPERATOR documented in this encounter Progress Notes * Natalie Aj MD - 08/31/2012 12:44 PM CST PATIENT: Delmi Briseno : 1955 DATE: 08/31/2012 Delmi Briseno is a 56 y.o. female. She is [...] of 61. 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 She is . She drinks rarely and does not smoke. She is here today with her . PRODUCTION PLANNING SUPERVISOR HX: OB History Grav Para Term Abortions [...] 06, 2005 and July 24, 2012 at [facility] in [facility] New cluster of calcifications upper-outer left breast. [...] needle localized excisional breast biopsy Natalie Aj MD.FACS. cc: Aleat Mace MD [address] [place] [address] LBENZENE CONVERTER OPERATOR documented in this encounter Procedure Notes * Mary Jo Schmitt - 09/10/2012 3:19 PM CSTAssociated Order(s): EKG 12-LEAD LBENZENE CONVERTER OPERATOR documented in this encounter Plan of Treatment Not on file documented as of this encounter Results * EKG 12-LEAD (09/10/2012 3:19 PM ETHYLBENZENE CONVERTER OPERATOR) Narrative Transcriptions Mary Jo Schmitt - 09/10/2012 3:19 PM CST Natalie Aj MD ECG ORDERABLES documented in this encounter Visit Diagnoses Diagnosis Abnormal mammogram, unspecified- Primary documented in this encounter
--- OUTSIDE RECORDS SUMMARY | 2024-08-03 20:31 | XMS_ITS | Encounter Summary ---
Author Organization [facility] Address [address] [place] [address] Care Team Providers Care Movie Shot Cameraman Name Role Phone Unavailable Primary Care Provider Unavailabl e Reason for Referral * Outpatient Services (Routine) - Closed Specialty Diagnoses / Procedures Referred By Contruma t Referred To Contact Diagnoses Diffuse cystic mastopathy, unspecified laterality Procedures MAMMO DIGITAL SCREEN Natalie Brandt MD [address] [place] [address] Referral ID Status Reason Start Date Expiration Date Visits Re quested Visits Authorized [id number] Closed 09/26/2014 10/27/2015 1 1 DENCE LEASING AGENT Reason for Visit * Reason Comments Breast Exam, Routine, No Symptoms annual ck Encounter Details Date Type Department Care Team (Late st Contact Info) Description 09/26/2014 11:30 AM RESIDENCE LEASING AGENT Office Visit [facility] BREAST SURGERY - [place] [facility] [address] [facility] [address] [address] Natalie Aj MD [address] [place] [address] Diffuse cystic mastopathy, unspecified laterality (Primary Dx) Social History Tobacco Use Types [...] Sign Reading Time Taken Comments Blood Pressure 134/74 09/26/2014 10:50 AM RESIDENCE LEASING AGENT Pulse 75 09/26/2014 10:50 AM RESIDENCE LEASING AGENT Temperature - - Respiratory Rate - - Oxygen Saturation - - Inhaled Oxygen Concentration - - Weight 105.6 kg (232 lb 12.8 oz) 2014 10:50 AM RESIDENCE LEASING AGENT Height 157.5 cm (5' 2 ) 09/26/2014 10:5 0 AM RESIDENCE LEASING AGENT Body Mass Index 42.58 09/26/2014 10:50 AM RESIDENCE LEASING AGENT documented in this encounter Progress Notes * Natalie Aj MD - 09/26/2014 10:57 AM CST PATIENT: Delmi Briseno : 1955 DATE: 09/26/2014 Delmi Briseno is a 59 y.o. female. She is here for annual [...] of 61. 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 She is . She drinks rarely [...] BIOPSY performed by Natalie Aj MD at [facility] OR ??? Hx excisional biopsy Left 09/03/12 [...] Negative for anemia, bleeding disorders, HIV/AIDS BP 134/74 Pulse 75 Ht 5' 2 (1.575 m) Wt 232 lb 12.8 oz (105.597 kg) BMI 42.57 kg/m2 ? No PHYSICAL EXAM: Well-developed, well-nourished, [...] 06, 2005 and July 24, 2012 at [facility] in [facility]. New cluster of calcifications upper-outer left breast. Mammogram: 09/20/2013 at [facility]; No mammographic evidence of malignancy Mammogram: 09/26/2014 at [facility]; nem, pending official radiology reading IMPRESSION /PLAN: 59 y.o. woman with stable breast exam and imaging today I have personally reviewed her mammogram today I will see her back in one year with mammogram, if radiology reading is okay Natalie Aj MD.FACS. cc: Aleta Mace MD [address] [place] [address] DENCE LEASING AGENT documented in this encounter Plan of Treatment Not on file documented as of this encounter Results * MAMMO DIGITAL SCREEN BILAT (10/09/2015 10:45 AM RESIDENCE LEASING AGENT) Anatomical Region Laterality Modality Breast Bilateral Mammography Narrative 10/09/2015 11:39 AM RESIDENCE LEASING AGENT BILATERAL FULL-FIELD DIGITAL SCREENING MAMMOGRAM WITH COMPUTER [...] Visit Diagnoses Diagnosis Diffuse cystic mastopathy, unspecified laterality- Primary Diffuse cystic mastopathy, unspecified laterality documented in this encounter
--- OUTSIDE RECORDS SUMMARY | 2024-08-03 20:31 | XMS_ITS | Encounter Summary ---
Author Organization [facility] Address [address] [place] [address] Care Team Providers Care Computed Tomography Technologist Name Role Phone Unavailable Primary Care Provider Unavailabl e Reason for Referral * Outpatient Services (Routine) - Closed Specialty Diagnoses / Procedures Referred By Contruma t Referred To Contact Radiology Diagnoses Abnormal mammogram, unspecified Procedures MAMMO NEEDLE LOC EA LESION LT Natalie Aj MD [address] [place] [address] Referral ID Status Reason Start Date Expiration Date Visits Re quested Visits Authorized [id number] Closed 09/01/2012 10/02/2013 1 1 ING MACHINE OPERATOR Encounter Details Date Type Department Care Team (Late st Contact Info) Description 08/31/2012 Orders Only [facility] [address] [place] [address] Natalie Aj MD [address] [place] [address] Abnormal mammogram, unspecified (Primary Dx) Social [...] Name Priority Date/Time Associated Diagnosis Comments CBC WITH DIFFERENTIAL Routine 09/01/2012 8:00 AM REAMING MACHINE OPERATOR COMPREHENSIVE METABOLIC PANEL Routine 09/01/2012 8:00 AM REAMING MACHINE OPERATOR documented in this encounter Results * MAMMO NEEDLE LOC EA LESION LT (09/03/2012 10:15 AM REAMING MACHINE OPERATOR) Anatomical Region Laterality Modality Breast Left Ultrasound 09/03/2012 9:17 AM REAMING MACHINE OPERATOR Impressions 09/03/2012 3:10 PM REAMING MACHINE OPERATOR IMPRESSION: Technically successful needle localization. Narrative 09/03/2012 3:10 PM REAMING MACHINE OPERATOR LEFT BREAST WIRE LOCALIZATION USING DIGITAL MAMMOGRAPHIC [...] localization. Natalie Aj MD MAMMO ORDERABLES * CBC WITH DIFFERENTIAL (09/01/2012 8:00 AM REAMING MACHINE OPERATOR) WBC 9.6 3.8 - 10.8 Thousand/u L [facility] RBC 4.67 4.20 - 5.10 Million/uL [facility] [place] HEMOGLOBIN 13.5 13.2 - 15.5 g/dL [facility] [place] HEMATOCRIT 41.7 38.5 - 45.0 % [facility] MCV 89.2 80.0 - 100.[address] [facility] [place] MCH 29.0 27.0 - 33.[address] [facility] [place] MCHC 32.5 32.0 - 36.0 g/dL [facility] [place] RDW 13.3 11.0 - 15.0 % [facility] [place] PLATELETS 289 140 - 400 Thousand/u L [facility] [place] NEUTROPHIL ABSOLUTE 5,462 1,500 - 7,800 cells/uL [facility] [place] LYMPHOCYTE ABSOLUTE 3,254 850 - 3,900 cells/uL [facility] [place] MONOCYTE ABSOLUTE 528 200 - 950 cells/uL [facility] [place] EOSINOPHIL ABSOLUTE 326 15 - 500 cells/uL [facility] [place] BASOPHILS ABSOLUTE 29 0 - 200 cells/uL [facility] NEUTROPHIL 56.9 % [facility] [place] LYMPHOCYTES 33.9 % [facility] [place] MONOCYTE 5.5 % [facility] [place] EOSINOPHILS 3.4 % [facility] BASOPHILS 0.3 % [facility] Comment: NO COLLECTION DATE RECEIVED. WE HAVE USED THE DATE THE SPECIMEN WAS RECEIVED BY THIS LABORATORY THE COLLECTION DATE. IF THIS IS INCORRECT, PLEASE CONTACT CLIENT SERVICES. PHONE NUMBER: [phone] Test Performed at: [facility] [address] [place], [place] ??[address] MITCHEL TIAN DO,MPH Historical Provider HEMATOLOGY ORDERABLE S INTERFACE SYSTEM Refer to clinic/hospital department [facility] [address] [place] [address] * (ABNORMAL) COMPREHENSIVE METABOLIC PANEL (09/01/2012 8:00 AM REAMING MACHINE OPERATOR) GLUCOSE 105(H) 65 - 99 mg/dL [facility] Comment:Fasting reference in terval BUN 14 7 - 25 mg/dL [facility] [place] CREATININE 0.65 mg/dL [facility] Comment: Age and/or gender not provided. Unable to calculate eGFR. ?Reference Range ?Male: ?? 0.70-1.33 ?Female: 0.50-1.05 ?Unable to flag appropriately ?due to gender not provided. For patients >49 years of age, the reference limit for Creatinine is approximately 13% higher for people identified as -Macedonian. BUN/CREAT RATIO NOT APPLICABLE 6 - 22 (calc) [facility] SODIUM 141 135 - 146 mmol/L [facility] . [place] POTASSIUM 4.9 3.5 - 5.3 mmol/L [facility] . [place] CHLORIDE 101 98 - 110 mmol/L [facility] [place] CO2 28 19 - 30 mmol/L [facility] [place] CALCIUM 10.4 mg/dL [facility] Comment: ?Reference Range ?Male: ?8.6-10.3 ?Female: ??8.6-10.4 ?Unable to flag appropriately ?due to gender not provided. ?? TOTAL PROTEIN 7.2 6.1 - 8.1 g/dL [facility] ALBUMIN 4.6 3.6 - 5.1 g/dL [facility]. [facility] GLOBULIN 2.6 1.9 - 3.7 g/dL (calc) [facility] ALBUMIN/GLOBULIN RATIO 1.8 1.0 - 2.5 (calc) [facility] BILIRUBIN TOTAL 0.7 0.2 - 1.2 mg/dL [facility] [employer] [facility] . [facility] ALKALINE PHOSPHATASE 91 33 - 130 U/L [facility] AST 40(H) 10 - 35 U/L [facility] ALT 44 6 - 60 U/L [facility] Comment: Test Performed at: [facility] [address] [facility] [place] ??[address] MITCHEL TIAN DO,MPH Historical Provider CHEMISTRY ORDERABLES INTERFACE SYSTEM Refer to clinic/hospital department [facility] [address] [place] [address] documented in this encounter Visit Diagnoses Diagnosis Abnormal mammogram, unspecified- Primary Abnormal mammogram, unspecified documented in this encounter
--- OUTSIDE RECORDS SUMMARY | 2024-08-03 20:31 | XMS_ITS | Encounter Summary ---
Author Organization [facility] Address [address] [place] [address] Care Team Providers Care Napper Tender Name Role Phone Unavailable Primary Care Provider Unavailabl e Reason for Referral * Outpatient Services (Routine) - Closed Specialty Diagnoses / Procedures Referred By Traci aguilar Referred To Contact Diagnoses Diffuse cystic mastopathy Procedures MAMMO DIGITAL SCREEN Natalie Brandt MD [address] [place] [address] Referral ID Status Reason Start Date Expiration Date Visits Re quested Visits Authorized [id number] Closed 09/20/2013 10/21/2014 1 1 DRAWING SUPERVISOR Reason for Visit * Reason Comments Breast Exam, Routine, No Symptoms annual ck Encounter Details Date Type Department Care Team (Late st Contact Info) Description 09/20/2013 11:30 AM TUBE DRAWING SUPERVISOR Office Visit [facility] BREAST [facility]GERY - [facility] [address] [place] [address] Natalie Aj MD [address] [place] [address] Diffuse cystic mastopathy (Primary Dx) Social History Tobacco Use Types [...] Sign Reading Time Taken Comments Blood Pressure 143/66 09/20/2013 11:18 AM TUBE DRAWING SUPERVISOR Pulse 81 09/20/2013 11:18 AM TUBE DRAWING SUPERVISOR Temperature - - Respiratory Rate - - Oxygen Saturation - - Inhaled Oxygen Concentration - - Weight 114 kg (251 lb 6.4 oz) 09/20/2013 11:18 A M TUBE DRAWING SUPERVISOR Height 157.5 cm (5' 2 ) 09/20/2013 11:18 AM TUBE DRAWING SUPERVISOR Body Mass Index 45.98 09/20/2013 11:18 AM TUBE DRAWING SUPERVISOR documented in this encounter Progress Notes * Natalie Aj MD - 09/20/2013 11:20 AM CST PATIENT: Delmi Briseno : 1955 DATE: 09/20/2013 Delmi Briseno is a 57 y.o. female. She is here for annual [...] of 61. 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 She is . She drinks rarely and does not smoke. PMH: Past Medical History Diagnosis Date ??? Diabetes mellitus ??? HTN (hypertension) ??? Hyperlipidemia ??? Unspecified adverse effect of anesthesia nausea/vomiting PSH: Past Surgical History Procedure Laterality Date ??? Hx cholecystectomy 2006 ??? Hx hemicolectomy 2007 ??? Hx section x3 ??? Pr excise breast cyst 09/03/2012 BREAST BIOPSY performed by Natalie Aj MD at [facility] OR ??? Hx excisional biopsy [...] tablet Take 25 mg by mouth daily. No current facility-administered medications for this visit. [...] Negative for anemia, bleeding disorders, HIV/AIDS BP 143/66 Pulse 81 Ht 5' 2 (1.575 m) Wt 251 lb 6.4 oz (114.034 kg) BMI 45.97 kg/m2 ? No PHYSICAL EXAM: Well-developed, well-nourished, [...] 06, 2005 and July 24, 2012 at [facility] in [facility] New cluster of calcifications upper-outer left breast. Mammogram: 09/20/2013 at [facility]; No mammographic evidence of malignancy. Pending official radiology reading IMPRESSION /PLAN: 57 y.o. woman with stable breast exam and imaging today I have personally reviewed her mammogram today I will see her back in one year with mammogram, if radiology reading is okay Natalie Aj MD.FACS. cc: Aleta Mace MD [address] [place] [id number] DRAWING SUPERVISOR documented in this encounter Plan of Treatment Not on file documented as of this encounter Results * MAMMO DIGITAL SCREEN BILAT (09/26/2014 10:44 AM TUBE DRAWING SUPERVISOR) Anatomical Region Laterality Modality Breast Bilateral Mammography 09/26/2014 10:4 4 AM TUBE DRAWING SUPERVISOR Narrative 09/26/2014 3:55 PM TUBE DRAWING SUPERVISOR BILATERAL FULL FIELD DIGITAL SCREENING MAMMOGRAM WITH [...] this encounter Visit Diagnoses Diagnosis Diffuse cystic mastopathy- Primary Diffuse cystic mastopathy documented in this encounter
--- OUTSIDE RECORDS SUMMARY | 2024-08-03 20:31 | XMS_ITS | Encounter Summary ---
Author Organization [facility] Address [address] [place] [address] Care Team Providers Care Account Manager Forest Service Name Role Phone Montana Lion MD Primary Care Provider [phone] Reason for Visit * Reason Comments Breast Exam, Routine, No Symptoms Encounter Details Date Type Department Care Team (Late st Contact Info) Description 10/14/2016 11:30 AM CDT Office [facility] [address] [place] [address] Natalie jA MD [address] [place] [address] Diffuse cystic mastopathy, unspecified laterality (Primary Dx); Morbid obesity with BMI of 40.0-44.9, adult Social History Tobacco Use Types Packs/Day Years [...] Pulse 66 10/14/2016 11:29 AM CDT Temperature - - Respiratory Rate - - Oxygen Saturation - - Inhaled Oxygen Concentration - - Weight 105.2 kg (232 lb) 10/14/2016 11:29 AM CDT Height 157.5 cm (5' 2 ) 10/14/2016 11:29 AM CDT Body Mass Index 42.43 10/14/2016 11:29 AM CDT documented in this encounter Progress Notes * Natalie Aj MD - 10/14/2016 12:39 PM CDT PATIENT: Delmi Briseno : 1955 DATE: 10/14/2016 Delmi Briseno is a 61 y.o. female. She is here for annual breast check. She had a benign left excisional breast biopsy August 2012. She is 4, para 3. She was 14 at menarche and 23 at first live . In maternal grandmother had breast cancer at age of 60. 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 She is . She drinks rarely and does not smoke. She has no complaints referable to her breasts. PMH: Past Medical History Diagnosis Date ??? Diabetes mellitus ??? HTN (hypertension) ??? Hyperlipidemia ??? Unspecified adverse effect of anesthesia nausea/vomiting PSH: Past Surgical History Procedure Laterality Date ??? Hx cholecystectomy 2006 ??? Hx hemicolectomy 2008 ??? Hx section x3 ??? Pr excise breast cyst 09/03/2012 BREAST BIOPSY performed by Natalie Aj MD at [facility] OR ??? Hx excisional biopsy Left 09/03/12 ALLERGY: Allergies Allergen Reactions ??? Adhesive Rash ??? Sulfa (Sulfonamide Antibiotics) Hives MEDS: Current Outpatient Prescriptions Medication Sig Dispense Refill ??? atorvastatin (LIPITOR) 20 mg tablet Take 20 mg by mouth late in the day. ??? losartan (COZAAR) 50 mg tablet ??? KOMBIGLYZE XR 2.5-1,000 mg Extended Release 24 hour tablet ??? MULTIVITAMIN ORAL Take by mouth. [...] Hematologic: Negative for anemia, bleeding disorders, HIV/AIDS Visit Vitals ??? BP 137/75 ??? Pulse 66 ??? Ht 5' 2 (1.575 m) ??? Wt 105.2 kg (232 lb) ??? No ??? BMI 42.43 kg/m2 PHYSICAL EXAM: Well-developed, well-nourished, pleasant woman. [...] 06, 2005 and July 24, 2012 at [facility] in [facility]. New cluster of calcifications upper-outer left breast. Mammogram: 09/20/2013 at [facility]; No mammographic evidence of malignancy Mammogram: 09/26/2014 at [facility]; nem Mammogram: 10/09/2015 at [facility]; nem Mammogram: 10/14/2016 at [facility]; NEM, pending official radiology reading IMPRESSION /PLAN: 61 y.o. woman with stable breast exam and imaging today I have personally reviewed her mammogram today and it is stable She will return to monthly self breast exams and continue annual clinical exams with her nutrition specialist. She will continue yearly screening mammography and see me back as needed if any new problems arise. The patient is asked to make an attempt to improve diet and exercise patterns to aid in breast cancer risk reduction 15 minutes was spent in face to face with the patient Natalie Aj MD.FACS. cc: Montana Lion MD [address] [place] [address] documented in this encounter Plan of Treatment Not on file documented as of this encounter Visit Diagnoses Diagnosis Diffuse cystic mastopathy, unspecified laterality- Primary Morbid obesity with BMI of 40.0-44.9, adult documented in this encounter Care Teams Account Manager Forest Service Relationship Specialty Start Date End Date Montana Lion MD [address] [place] [address] PCP - General Family Practice 10/03/15 documented as of this encounter
== END 2024-07-27 10:12 | disposition home or self-care (01) ==
PROVIDERS: PCP Family Medicine; Visit Provider Otolaryngology
DX: H65.492 Other chronic nonsuppurative otitis media, left ear (principal); H90.12 Conductive hearing loss, unilateral, left ear, with unrestricted hearing on the contralateral side; J30.2 Other seasonal allergic rhinitis; H90.3 Sensorineural hearing loss, bilateral
CPT/HCPCS: 92557; 92567

== ENCOUNTER 2025-02-22 12:41 | Outpatient (CLI) | payer MEDICARE, SELFPAY ==
--- NOTE | ~2025-02-22 | MM_ITS ---
EXAMINATION: MM screening mateo BI w bethany HISTORY: Screening TECHNIQUE: Craniocaudal and mediolateral oblique 3-D tomosynthesis images were obtained and synthetic 2-D images were generated. CAD analysis was submitted and interpreted. COMPARISON: Comparison to multiple prior studies sequentially, with oldest reviewed study dated 07/06. BREAST PARENCHYMAL COMPOSITION: The breasts are almost entirely fatty. FINDINGS: There is no evidence of suspicious mass, calcification, or architectural distortion to sug gest malignancy in either breast. IMPRESSION: 1. No mammographic evidence of malignancy. 2. Recommend routine screening mammography in one year. BI-RADS Category 1: Negative Reviewed, dictated and finalized at location B.
--- NOTE | ~2025-02-22 | DEXA_ITS ---
Bone Density Report Name: JUSTUS MIRANDA Age: 69 Sex: Female Ethnicity: White Date of : 1955 Indication: postmenopausal; screening for osteoporosis; height loss; Referring Provider: Estela Duggan Study: Bone densitometry was performed. Exam Date: February 22, 2025 Accession number: [id number] Bone Density: Region BMD T-score Z-score Classification AP Spine(L1-L4) 1.288 2.2 4.2 Normal Femoral Neck (Left) 0.830 -0.2 1.5 Normal Total Hip (Left) 1.039 0.8 2.2 Normal Femoral Neck (Right) 0.784 -0.6 1.1 Normal Total Hip (Right) 0.944 0.0 1.4 Normal Total Hip Mean 0.991 0.4 1.8 Normal World Health Organization criteria for BMD impression classify patients as: Normal (T-score at or above -1.0), Osteopenia (T-score between -1.0 and -2.5), or Osteoporosis (T-score at or below -2.5). 10-year Fracture Risk: FRAX not reported because: All T-scores for Spine Total, Hip Total, Femoral Neck at or above -1.0 Previous Exams: -- Region Exam Age BMD T-score BMD Change BMD Change Date g/cm2 vs Baseline vs Previous -- AP Spine (L1-L4) 02/22/2025 69 1.288 2.2 -1.3%# -1.3%# 04/16/2022 66 1.306 2.4 Total Hip(Left) 02/22/2025 69 1.039 0.8 -1.9%# -1.9%# 04/16/2022 66 1.060 1.0 Total Hip(Right) 02/22/2025 69 0.944 0.0 -7.5%# -7.5%# 04/16/2022 66 1.020 0.6 -- *Denotes significance at 95% confidence level, LSC for AP Spine = 0.022 g/cm2, LSC for Total Hip = 0.027 g/cm2 # Denotes dissimilar scan types or analysis methods Clinical Information Provided by Patient: Has used the following medications: Vitamin D, Calcium Patient maximum height was 62 Menopause Age: 56 Does not regularly consume dairy products Drinks caffeinated beverages Onset of menses at age 14 Number of children 3 Impression: The patient has normal bone mass. Unable to evaluate interval change due to the use of different scan modes. Discussion: BONE DENSITY IS ABOVE THE MINIMUM DESIRABLE LEVEL AT ALL SKELETAL SITES TESTED. This patient?s bone mineral density is above the minimum desirable level (T-score -1.0 or better) at all sites measured. The patient should follow a healthful lifestyle (good nutrition with adequate calcium and vitamin D, and appropriate weight-bearing exercise). Follow-Up: Consider repeating this study in 5 years or sooner if there is some new clinical indication. Reported by: JAVIER on 02/22/2025 1:00:00 PM. Reviewed, dictated and finalized at location A.
== END 2025-02-22 12:42 | disposition home or self-care (01) ==
LOC: MICIMG 12:41
PROVIDERS: PCP Physician Assistant Medical; Visit Provider Physician Assistant Medical
DX: Z12.31 Encounter for screening mammogram for malignant neoplasm of breast (principal); Z78.0 Asymptomatic menopausal state
CPT/HCPCS: 77063; 77067; 77080